=== PATIENT | female | born 1985 | race Caucasian/White ===

== ENCOUNTER 2020-06-06 07:03 | Day surgery (SDC) | payer BC, SELFPAY ==
--- NOTE | 2020-06-03 15:16 | HO.ANESPROP2 ---
Documented by User: Thelma Kaplan 06/03/20 15:17 HPI - Anesthesia Eval Consult details Narrative: 35yo F for EGD PMFSH Past Medical History Medical History Asthma Crohn disease Surgical History Surgical History History of laparotomy History of repair of ACL Social History Social History Smoking Status: Never smoker Second Hand Smoke Exposure: No Use of substances other than those prescribed or required for medical reasons: No Advance Directives: No Advance Directives Information Provided: Yes Recently lost weight without trying: No Meds Allergies Allergy/AdvReac Type Severity Reaction Status Date / Time iron Allergy Unknown Verified 06/03/20 15:04 Home Medications Medication Instructions Recorded Confirmed Type amlodipine 1 tab PO DAILY 06/03/20 06/03/20 History bupropion HCl 1 tab PO BID 06/03/20 06/03/20 History cyanocobalamin (vitamin B-12) 1 ml IM QMONTH 06/03/20 06/03/20 History enalapril maleate 1 tab PO BID 06/03/20 06/03/20 History norethin-e.estradiol triphasic 1 tab PO ONCE 06/03/20 06/03/20 History [Nortrel (28)] Exam Exam Date and Time: June 03, 2020 1516 Assessment and Plan Assessment Anesthesia Assessment: Chart Reviewed Documented by User: Jenny Miller 06/06/20 11:04 [facility] Past Medical History Medical History Asthma Crohn disease Surgical History Surgical History History of laparotomy History of repair of ACL Social History Social History Smoking Status: Never smoker Second Hand Smoke Exposure: No Use of substances other than those prescribed or required for medical reasons: No Advance Directives: No Advance Directives Information Provided: Yes Recently lost weight without trying: No Meds Allergies Allergy/AdvReac Type Severity Reaction Status Date / Time iron Allergy Unknown Verified 06/03/20 15:04 Home Medications Medication Instructions Recorded Confirmed Type amlodipine 1 tab PO DAILY 06/03/20 06/03/20 History bupropion HCl 1 tab PO BID 06/03/20 06/03/20 History cyanocobalamin (vitamin B-12) 1 ml IM QMONTH 06/03/20 06/03/20 History enalapril maleate 1 tab PO BID 06/03/20 06/03/20 History norethin-e.estradiol triphasic 1 tab PO ONCE 06/03/20 06/03/20 History [Nortrel (28)] Exam Airway Mallampati Class: II TM Dist: >3cm Neck ROM: Full
[2020-06-06 07:11] VITALS: BMI 29.2
[2020-06-06 07:41] LABS: UPreg QC Valid YES; Urine Pregnancy NEGATIVE (NEGATIVE)
[2020-06-06 07:44] VITALS: BP 129/80; PULSE 96; RESP 18; TEMP 36.6; O2SAT 98
[2020-06-06] MEDS: Lactated Ringers 1,000 ML 100 ML IVCONT (07:55)
[2020-06-06 08:32] VITALS: BP 123/88; PULSE 102; RESP 16; TEMP 36.6; O2SAT 97
--- NOTE | 2020-06-06 08:33 | HO.POSTANES ---
Post Anesthesia Evaluation Post Anesthesia Evaluation Vital Signs: Vital Signs Temp Pulse Resp BP Pulse Ox 06/06/20 07:44 98 F 96 18 129/80 98
[2020-06-06 08:48] VITALS: BP 125/83; PULSE 89; RESP 18; O2SAT 100
[2020-06-06 09:03] VITALS: BP 123/85; PULSE 84; RESP 18; O2SAT 100
--- NOTE | 2020-06-06 11:03 | HO.POSTANES ---
Post Anesthesia Evaluation Post Anesthesia Evaluation Vital Signs: Vital Signs Temp Pulse Resp BP Pulse Ox 06/06/20 09:03 84 18 123/85 100 06/06/20 08:48 89 18 125/83 100 06/06/20 08:32 97.9 F 102 H 16 123/88 97 06/06/20 07:44 98 F 96 18 129/80 98
--- NOTE | 2020-06-06 11:07 | OP_ITS ---
SURGEON: Neel Barnhart MD INDICATIONS: The patient presents for evaluation of odynophagia and reflux. Full consent has been obtained from her for this, including risks of bleeding and perforation. PREOPERATIVE DIAGNOSIS: POSTOPERATIVE DIAGNOSIS: PROCEDURE PERFORMED: Esophagogastroduodenoscopy with biopsies. ESTIMATED BLOOD LOSS: COMPLICATIONS: ANESTHESIA: Monitored anesthesia care. ASSISTANTS: SPECIMENS: PREOPERATIVE DIAGNOSES: Odynophagia and reflux. POSTOPERATIVE DIAGNOSES: Odynophagia and reflux, erosive esophagitis, small hiatal hernia. DESCRIPTION OF PROCEDURE: The patient was placed in the left lateral decubitus position. The Olympus video gastroscope was passed in the posterior oropharynx and upper esophagus under direct vision. The scope was passed slowly into the distal esophagus. The gastroesophageal junction appeared at 35 cm. Extending from this to 25 cm, were areas of less than 10 mm erosions and small ulcerations. There was no evidence of any yeast infection. There was no gross evidence of Crain's mucosa. The EG junction appeared normal. The scope was advanced into the stomach. There was a small hiatal hernia. The scope was advanced to pylorus and duodenum cannulated to the descending portion. The duodenum including the bulb appeared normal without mass or ulceration. Scope was withdrawn back in the stomach. The gastric antrum and body appeared normal with good peristalsis. Scope was retroflexed visualizing the proximal stomach carefully, which appeared normal, without any sign of mass or ulceration. The scope was straightened out and withdrawn back into the esophagus. Again, noted with the multiple small erosions and ulceration between 25 and 35 cm with friability. The majority of the esophageal mucosa did appear normal. Again, there was no gross evidence of candidiasis. Multiple biopsies were obtained between 25 and 35 cm from both normal-appearing mucosa and margins of the ulcers. The scope was withdrawn from the patient. She tolerated the procedure well and was returned to the recovery area in stable condition. IMPRESSION: 1. Erosive esophagitis with small esophageal ulcers. 2. Small hiatal hernia. PLAN: The results of the biopsy will be checked. At this point, I suspect this is related to reflux esophagitis as opposed to Crohn disease involving the esophagus or infectious esophagitis. She will start omeprazole 20 mg b.i.d. for 1 month and then daily thereafter. She will continue her Entyvio infusions. She will be seen in 2 to 3 months for a followup visit, but was instructed to call sooner if need be. This has all been discussed with her mother. She was also advised to avoid aspirin and NSAIDs long-term. MD NIC Khalil/CLAYTON / [phone]
--- NOTE | 2020-06-06 15:54 | PM.OP ---
Brief Operative Note Date of procedure: 06/06/20 Pre-op diagnosis: GERD, Odynophagia Post-op diagnosis: other (Erosive esophagitis, Hiatal hernia) Procedure: EGD with biopsies Surgeon: Neel Barnhart Anesthesia: MAC Estimated blood loss (mL): 5.0 Pathology: other (A. Esophagus 25-35 cm.) Condition: stable
== END 2020-06-06 09:15 | disposition home or self-care (01) ==
PROVIDERS: Nurse Practitioner; PCP Internal Medicine; Visit Provider Internal Medicine
PROC: 0DJ08ZZ Inspection of Upper Intestinal Tract, Via Natural or Artificial Opening Endoscopic (ICD-10-PCS; CPT 43235; principal; 2020-06-06 08:00)
DX: K21.9 Gastro-esophageal reflux disease without esophagitis (principal); R13.10 Dysphagia, unspecified; K22.10 Ulcer of esophagus without bleeding; K44.9 Diaphragmatic hernia without obstruction or gangrene
CPT/HCPCS: 43239; 81025; 88305; 88312

== ENCOUNTER 2020-06-09 07:31 | Outpatient (REF) | payer BC, SELFPAY | END 2020-06-09 07:32 | disposition home or self-care (01) | LOC: HO.MDS 07:31 | PROVIDERS: PCP Internal Medicine; Visit Provider Internal Medicine | DX: K50.90 Crohn's disease, unspecified, without complications (principal) | CPT/HCPCS: 96365; J3380 ==

== ENCOUNTER 2020-08-10 07:34 | Outpatient (REF) | payer BC, SELFPAY | END 2020-08-10 07:35 | disposition home or self-care (01) | LOC: HO.MDS 07:34 | PROVIDERS: PCP Internal Medicine; Visit Provider Internal Medicine | DX: K50.00 Crohn's disease of small intestine without complications (principal) | CPT/HCPCS: 96365; J3380 ==

== ENCOUNTER 2020-10-05 07:32 | Outpatient (REF) | payer OTHER, SELFPAY | END 2020-10-05 07:33 | disposition home or self-care (01) | LOC: HO.MDS 07:32 | PROVIDERS: PCP Internal Medicine; Visit Provider Internal Medicine | DX: K50.90 Crohn's disease, unspecified, without complications (principal) | CPT/HCPCS: 96365; J3380 ==

== ENCOUNTER 2020-12-01 07:32 | Outpatient (REF) | payer OTHER, SELFPAY | END 2020-12-01 07:33 | disposition home or self-care (01) | LOC: HO.MDS 07:32 | PROVIDERS: PCP Internal Medicine; Visit Provider Internal Medicine | DX: K50.90 Crohn's disease, unspecified, without complications (principal) | CPT/HCPCS: 96365; J3380 ==

== ENCOUNTER 2021-01-20 07:34 | Outpatient (REF) | payer OTHER, SELFPAY ==
[2021-01-20 08:23] LABS: MANUAL DIFF FLAG NO
[2021-01-20 08:31] LABS: Basophils Percent Auto 0.7 % (0-2); Eosinophils Absolute Auto 0.1 X10*3/uL (0.0-0.4); Eosinophils Percent Auto 1.5 % (0-4); Hematocrit 33.7 % (37-47); Hemoglobin 10.8 g/dl (12.0-16.0); Imm Gran Abs Auto 0.02 X10*3/uL (0.00-0.03); Imm Gran Pct Auto 0.3 % (0.0-0.4); Lymphocytes Absolute Auto 0.9 X10*3/uL (1.2-4.9); Lymphocytes Percent Auto 14.7 % (20-40); Mean Corpuscular Hemoglobin 28.1 pg (27.0-33.0); Mean Corpuscular Volume 87.5 fL (80-98); Monocytes Absolute Auto 0.7 X10*3/uL (0.1-1.2); Monocytes Percent Auto 10.8 % (2-11); Neutrophils Absolute Auto 4.4 X10*3/uL (2.0-8.3); Platelet Count 399 X10*3/uL (160-400); Red Blood Count 3.85 X10*6/uL (4.20-5.50); Red Cell Distribution Width 13.6 % (11.0-16.0)
[2021-01-20 08:49] LABS: C Reactive Protein 4.99 mg/dL (< or = 0.50); Iron 34 mcg/dL (30-160); Percent Iron Saturation 9 % (15-50); Total Iron Binding Capacity 385 mcg/dL (228-428); Unsaturated Iron Binding 351 ug/dL
[2021-01-20 09:05] LABS: Ferritin 20 ng/mL (10-122)
[2021-01-20 09:34] LABS: Erythrocyte Sedimentation Rate 28 MM/HR (0-20)
[2021-01-20 09:45] LABS: Folate 7.6 ng/mL (> or = 4.0); Vitamin B12 233 pg/mL (200-900)
[2021-01-21 19:31] LABS: Immunoglobulin A 231 mg/dL (47-310)
[2021-01-22 22:12] LABS: Transglutaminase Ab IgG 2 U/mL; Transglutaminase IgA 1 U/mL
[2021-01-23 18:42] LABS: Gliadin Deamidated IgA Ab 11 Units; Gliadin Deamidated IgG Ab 6 Units
[2021-01-24 06:17] LABS: Zinc 56 mcg/dL (60-130)
[2021-01-25 20:06] LABS: Endomysial IgA Antibody Negative (Negative)
[2021-01-26 08:28] LABS: Prometheus Anser VDZ SEE SEPARATE REPORT
== END 2021-01-20 07:35 | disposition home or self-care (01) ==
LOC: HO.LAB 07:34
PROVIDERS: PCP Internal Medicine; Visit Provider Internal Medicine
DX: K50.819 Crohn's disease of both small and large intestine with unspecified complications (principal); D64.9 Anemia, unspecified
CPT/HCPCS: 36415; 80280; 82542; 82607; 82728; 82746; 82784; 83516; 83540; 84630; 85025; 85652; 86140; 86255; 86256

== ENCOUNTER 2021-01-26 07:28 | Outpatient (REF) | payer OTHER, SELFPAY ==
[2021-01-28 18:57] LABS: TS Negative Control Passed; TS Panel A 0; TS Panel B 0; TS Positive Control Passed; TSpotTB Negative (SeeBelow)
== END 2021-01-26 07:29 | disposition home or self-care (01) ==
LOC: HO.MDS 07:28
PROVIDERS: PCP Internal Medicine; Visit Provider Internal Medicine
DX: K50.019 Crohn's disease of small intestine with unspecified complications (principal)
CPT/HCPCS: 36415; 86481; 96365; J3380

== ENCOUNTER → 2021-03-01 07:55 | Outpatient (BNV) | payer OTHER, SELFPAY | PROVIDERS: PCP Internal Medicine; Referring Provider Internal Medicine; Visit Provider Internal Medicine | DX: D50.8 Other iron deficiency anemias (principal); E53.9 Vitamin B deficiency, unspecified | CPT/HCPCS: 99203; 99213 ==

== ENCOUNTER 2021-03-07 13:55 | Outpatient (REF) | payer OTHER, SELFPAY | END 2021-03-07 13:56 | disposition home or self-care (01) | LOC: HO.MDS 13:55 | PROVIDERS: PCP Internal Medicine; Visit Provider Internal Medicine | DX: D50.9 Iron deficiency anemia, unspecified (principal) | CPT/HCPCS: 96365; 96367; J1756; Q0163 ==

== ENCOUNTER 2021-03-14 07:50 | Outpatient (REF) | payer OTHER, SELFPAY | END 2021-03-14 07:51 | disposition home or self-care (01) | LOC: HO.MDS 07:50 | PROVIDERS: PCP Internal Medicine; Visit Provider Internal Medicine | DX: D50.9 Iron deficiency anemia, unspecified (principal) | CPT/HCPCS: 96365; 96375; J1756; Q0163 ==

== ENCOUNTER 2021-03-21 11:52 | Outpatient (REF) | payer OTHER, SELFPAY | END 2021-03-21 11:53 | disposition home or self-care (01) | LOC: HO.MDS 11:52 | PROVIDERS: PCP Internal Medicine; Visit Provider Internal Medicine | DX: K50.90 Crohn's disease, unspecified, without complications (principal) | CPT/HCPCS: 96365; J3380 ==

== ENCOUNTER 2021-04-18 09:58 | Outpatient (REF) | payer OTHER, SELFPAY | END 2021-04-18 09:59 | disposition home or self-care (01) | LOC: HO.MDS 09:58 | PROVIDERS: PCP Internal Medicine; Visit Provider Internal Medicine | DX: K50.90 Crohn's disease, unspecified, without complications (principal) | CPT/HCPCS: 96365; J3380 ==

== ENCOUNTER 2021-05-19 07:29 | Outpatient (REF) | payer OTHER, SELFPAY | END 2021-05-19 07:30 | disposition home or self-care (01) | LOC: HO.MDS 07:29 | PROVIDERS: PCP Internal Medicine; Visit Provider Internal Medicine | DX: K50.90 Crohn's disease, unspecified, without complications (principal) | CPT/HCPCS: 96365; J3380 ==

== ENCOUNTER 2021-05-24 06:43 | Outpatient (REF) | payer OTHER, SELFPAY ==
[2021-05-24 06:48] LABS: MANUAL DIFF FLAG NO
[2021-05-24 07:28] LABS: Basophils Absolute Auto 0.1 X10*3/uL (0.0-0.2); Basophils Percent Auto 0.7 % (0-2); Eosinophils Absolute Auto 0.1 X10*3/uL (0.0-0.4); Eosinophils Percent Auto 1.2 % (0-4); Imm Gran Abs Auto 0.02 X10*3/uL (0.00-0.03); Imm Gran Pct Auto 0.3 % (0.0-0.4); Lymphocytes Absolute Auto 1.1 X10*3/uL (1.2-4.9); Lymphocytes Percent Auto 14.4 % (20-40); Mean Corpuscular HGB Conc 32.4 g/dl (31.0-35.0); Mean Corpuscular Hemoglobin 29.1 pg (27.0-33.0); Mean Corpuscular Volume 89.9 fL (80-98); Mean Platelet Volume 8.9 fL (9.4-12.3); Monocytes Absolute Auto 0.8 X10*3/uL (0.1-1.2); Monocytes Percent Auto 10.1 % (2-11); Neutrophils Absolute Auto 5.6 X10*3/uL (2.0-8.3); Neutrophils Percent Auto 73.3 % (45-73); Platelet Count 397 X10*3/uL (160-400); Red Blood Count 3.78 X10*6/uL (4.20-5.50); Red Cell Distribution Width 12.7 % (11.0-16.0); White Blood Count 7.6 X10*3/uL (4.8-10.8)
[2021-05-24 07:54] LABS: Alanine Aminotransferase 12 U/L (0-31); Albumin Level 3.2 g/dL (3.5-5.0); Alkaline Phosphatase 86 U/L (39-117); Aspartate Amino Transferase 10 U/L (5-31); Bilirubin Direct 0.2 mg/dL (0.0-0.5); Bilirubin Total 0.8 mg/dL (0.0-1.0); C Reactive Protein 2.17 mg/dL (< or = 0.50); Lipase 37 U/L (8-78); Total Protein 6.3 g/dL (6.5-8.0)
[2021-05-24 07:58] LABS: Amylase 71 U/L (28-100)
[2021-05-24 08:07] LABS: Erythrocyte Sedimentation Rate 19 MM/HR (0-20)
== END 2021-05-24 06:44 | disposition home or self-care (01) ==
LOC: HO.LAB 06:43
PROVIDERS: PCP Internal Medicine; Visit Provider Internal Medicine
DX: K50.012 Crohn's disease of small intestine with intestinal obstruction (principal)
CPT/HCPCS: 36415; 80076; 82150; 83690; 85025; 85652; 86140

== ENCOUNTER → 2021-06-01 08:20 | Outpatient (BNVA) | payer OTHER, SELFPAY | PROVIDERS: Visit Provider Advanced Practice Midwife ==

== ENCOUNTER 2021-06-16 07:28 | Outpatient (REF) | payer OTHER, SELFPAY | END 2021-06-16 07:29 | disposition home or self-care (01) | LOC: HO.MDS 07:28 | PROVIDERS: PCP Internal Medicine; Visit Provider Internal Medicine | DX: K50.90 Crohn's disease, unspecified, without complications (principal) | CPT/HCPCS: 96365; J3380 ==

== ENCOUNTER 2021-07-17 07:31 | Outpatient (REF) | payer OTHER, SELFPAY | END 2021-07-17 07:32 | disposition home or self-care (01) | LOC: HO.MDS 07:31 | PROVIDERS: PCP Internal Medicine; Visit Provider Internal Medicine | DX: K50.90 Crohn's disease, unspecified, without complications (principal) | CPT/HCPCS: 96365; J3380 ==

== ENCOUNTER 2021-08-14 14:10 | Outpatient (REF) | payer OTHER, SELFPAY ==
[2021-08-14 14:23] LABS: MANUAL DIFF FLAG NO
[2021-08-14 14:26] LABS: Basophils Absolute Auto 0.1 X10*3/uL (0.0-0.2); Basophils Percent Auto 0.9 % (0-2); Eosinophils Absolute Auto 0.2 X10*3/uL (0.0-0.4); Eosinophils Percent Auto 1.9 % (0-4); Hematocrit 36.1 % (37.0-47.0); Imm Gran Abs Auto 0.03 X10*3/uL (0.00-0.03); Imm Gran Pct Auto 0.4 % (0.0-0.4); Lymphocytes Absolute Auto 1.3 X10*3/uL (1.2-4.9); Lymphocytes Percent Auto 16.9 % (20-40); Mean Corpuscular HGB Conc 33.2 g/dl (31.0-35.0); Mean Corpuscular Hemoglobin 30.1 pg (27.0-33.0); Mean Corpuscular Volume 90.5 fL (80.0-98.0); Mean Platelet Volume 8.4 fL (9.4-12.3); Monocytes Absolute Auto 0.9 X10*3/uL (0.1-1.2); Monocytes Percent Auto 11.7 % (2-11); Neutrophils Absolute Auto 5.3 x10*3/uL (2.0-8.3); Neutrophils Percent Auto 68.2 % (45-73); Platelet Count 454 X10*3/uL (160-400); Red Blood Count 3.99 X10*6/uL (4.20-5.50); Red Cell Distribution Width 12.4 % (11.0-16.0); White Blood Count 7.8 X10*3/uL (4.8-10.8)
[2021-08-14 14:44] LABS: C Reactive Protein 3.67 mg/dL (< or = 0.50)
[2021-08-14 15:13] LABS: Erythrocyte Sedimentation Rate 21 MM/HR (0-20)
== END 2021-08-14 14:11 | disposition home or self-care (01) ==
LOC: HO.MDS 14:10
PROVIDERS: PCP Internal Medicine; Visit Provider Internal Medicine
DX: K50.00 Crohn's disease of small intestine without complications (principal)
CPT/HCPCS: 36415; 85025; 85652; 86140; 96365; J3380

== ENCOUNTER 2021-09-11 14:01 | Outpatient (REF) | payer OTHER, SELFPAY | END 2021-09-11 14:02 | disposition home or self-care (01) | LOC: HO.MDS 14:01 | PROVIDERS: PCP Internal Medicine; Visit Provider Internal Medicine | DX: K50.90 Crohn's disease, unspecified, without complications (principal) | CPT/HCPCS: 96365; J3380 ==

== ENCOUNTER 2021-10-11 13:18 | Outpatient (REF) | payer OTHER, SELFPAY | END 2021-10-11 13:19 | disposition home or self-care (01) | LOC: HO.MDS 13:18 | PROVIDERS: PCP Internal Medicine; Visit Provider Internal Medicine | DX: K50.90 Crohn's disease, unspecified, without complications (principal) | CPT/HCPCS: 96365; J3380 ==

== ENCOUNTER 2021-10-30 08:27 | Outpatient (REF) | payer OTHER, SELFPAY | END 2021-10-30 08:28 | disposition home or self-care (01) | LOC: HO.LAB 08:27 | PROVIDERS: Visit Provider Internal Medicine | DX: Z13.89 Encounter for screening for other disorder (principal) ==

== ENCOUNTER 2021-11-08 11:59 | Outpatient (REF) | payer OTHER, SELFPAY | END 2021-11-08 12:00 | disposition home or self-care (01) | LOC: HO.MDS 11:59 | PROVIDERS: PCP Internal Medicine; Visit Provider Internal Medicine | DX: K50.90 Crohn's disease, unspecified, without complications (principal); D50.9 Iron deficiency anemia, unspecified; Z90.49 Acquired absence of other specified parts of digestive tract | CPT/HCPCS: 96365; J3380 ==

== ENCOUNTER 2021-12-06 13:02 | Outpatient (REF) | payer OTHER, SELFPAY | END 2021-12-06 13:03 | disposition home or self-care (01) | LOC: HO.MDS 13:02 | PROVIDERS: PCP Internal Medicine; Visit Provider Internal Medicine | DX: K50.90 Crohn's disease, unspecified, without complications (principal); D50.9 Iron deficiency anemia, unspecified; Z90.49 Acquired absence of other specified parts of digestive tract | CPT/HCPCS: 96365; J3380 ==

== ENCOUNTER 2022-01-03 13:05 | Outpatient (REF) | payer OTHER, SELFPAY | END 2022-01-03 13:06 | disposition home or self-care (01) | LOC: HO.MDS 13:05 | PROVIDERS: PCP Internal Medicine; Visit Provider Internal Medicine | DX: K50.90 Crohn's disease, unspecified, without complications (principal); D50.9 Iron deficiency anemia, unspecified | CPT/HCPCS: 36415; 80280; 82542; 96365; J3380 ==

== ENCOUNTER 2022-01-29 11:38 | Emergency (ER) | payer OTHER, SELFPAY ==
[2022-01-29 11:42] VITALS: BP 148/99; PULSE 108; RESP 18; TEMP 36.2; O2SAT 97; BMI 27.5
--- NOTE | 2022-01-29 14:04 | ED_ITS ---
HPI - Skin/Abscess/Foreign Bdy General Chief complaint: General Medical Stated complaint: cyst between legs Time Seen by Provider: 01/29/22 13:18 Source: patient Mode of arrival: ambulatory Limitations: no limitations History of Present Illness complaint: abscess/boil Onset (ago): month(s) (1) Location: genitals (right labial ) Severity: severe Severity scale (1-10): >10 Quality: aching and constant Pain Consistency: constant Relieving factors: none Exacerbating factors: palpation and movement Context: none Associated symptoms: denies other symptoms Treatments prior to arrival: attempted to drain pus at home and other ( went to an urgent care and they reported that she had to go to her audio visual design engineer to have this incision and drain and they placed her on Keflex for 7 days which she started yesterday and is taking as prescribed) Related Data Home Medications Medication Instructions Recorded Confirmed bupropion HCl 150 mg tablet,12 hr 1 tab PO BID 06/03/20 06/01/21 sustained-release cyanocobalamin (vitamin B-12) 1 ml IM QMONTH 06/03/20 06/01/21 1,000 mcg/mL injection solution enalapril maleate 10 mg tablet 1 tab PO BID 06/03/20 06/01/21 omeprazole 20 mg tablet,delayed 20 mg PO BID 03/01/21 06/01/21 release vedolizumab 300 mg intravenous 300 mg IV Q4W 03/01/21 06/01/21 solution (Entyvio) budesonide 3 mg 3 cap PO DAILY 10/30/21 10/30/21 capsule,delayed,extended release Previous Rx's Medication Instructions Recorded norethindrone-e.estradiol 1 tab PO ONCE #84 tabs 06/01/21 triphasic 0.5 mg/0.75 mg/1 mg-35 mcg tablet (Nortrel (28)) cyanocobalamin (vitamin B-12) 1,000 mcg subcut 2XW #6 ea 07/06/21 1,000 mcg/mL injection kit doxycycline monohydrate 100 mg 100 mg PO BID 10 days #20 tabs 01/29/22 tablet ibuprofen 800 mg tablet 800 mg PO Q8H PRN pain #14 tabs 01/29/22 oxycodone 5 mg tablet 5 mg PO Q6H PRN pain #14 tabs 01/29/22 Allergies Allergy/AdvReac Type Severity Reaction Status Date / Time dextran sulfate Allergy Severe Anaphylaxis Verified 01/29/22 11:41 iron Allergy Severe Vomiting Verified 01/29/22 11:41 zinc Allergy Severe Nausea and Verified 01/29/22 11:41 Vomiting Review of Systems Review of Systems: Constitutional : Denies history of same, Denies any other sites involved, Denies IV drug use, Denies history of MRSA, Denies swollen glands, Denies injury, Denies Fever, Denies Chills, + Sig Pain, Denies Systemic symptoms Cardiovascular : No Chest Pain, No SOB Respiratory : No Dyspnea Gastrointestinal : No abdominal pain Musculoskeletal : No Joint Swelling Skin : + abscess with surrounding erythema with right labial, No skin laceration, No Foreign bodies, No spreading rash, Denies bites, Denies discharge, Neuro : No Weakness, No Numbness/tingling Psych : No SI/HI/thoughts of self injury Yes all other systems are reviewed and are negative [facility] Past Medical History Attestation statement: The following information was validated with the patient. Source: old records reviewed and nursing notes reviewed Medical History Asthma Crohn disease Iron deficiency anemia Surgical History History of bowel resection History of repair of ACL Hx of cholecystectomy Family History Family History Father Stroke Heart disease Diabetes HTN (hypertension) Social History Social History Alcohol intake: current Alcohol intake frequency: a few times a week Patient Tobacco Use Status: Never used Tobacco Second Hand Smoke Exposure: No Advance Directives: No Advance Directives Information Provided: No Gender identity: Female Physical Exam Vital Signs: Vital Signs: Last Vital Signs Temp 97.1 F 01/29/22 11:42 Pulse 108 H 01/29/22 11:42 Resp 16 01/29/22 14:14 BP 148/99 H 01/29/22 11:42 Pulse Ox 97 01/29/22 11:42 O2 Del Method 01/29/22 11:42 BMI result Body Mass Index 27.5 vital signs have been reviewed as normal and appeared to be correct. Blood pressure 148/99 Heart rate 108. Respiration rate normal. Temperature normal. Oxygen saturation normal. Appearance: Alert. Oriented X3. No acute distress. Head: Normal external exam. Normocephalic. Atraumatic. Eyes: PERRLA. EOMI. Conjunctiva and sclera normal. Eyelids normal. ENT: Pharynx normal. Uvula midline. Moist mucous membranes. Neck: Normal inspection. Neck supple. FROM. CVS: Normal heart rate and rhythm. Respiratory: No respiratory distress. Painless inspiration. Skin: Skin warm and dry. Normal skin color. Normal skin turgor. to right tj patient has an abscess with moderate surrounding erythema and soft tissue swelling and tenderness palpation. No drainage noted at this time. No additional rashes/lesions/lacerations noted. Extremities: Extremities exhibit normal range of motion. Extremities nontender. Neuro: Oriented X 3. No motor deficit. No sensory deficit. Reflexes normal. Normal steady gait. No focal neuro deficits noted. Vascular: + radial pulses/+ 2 distal pedal pulses/+2 dorsalis pedis b/l. Normal cap refill. No cyanosis noted to upper extremity nails and lower extremity toes nails. Course Course Course Narrative: patient now status post I&D of abscess of right labia. Patient tolerated procedure well. No complications. I did give her morphine by IM and Zofran. Will DC home with oxycodone. Along with instructions follow-up with PCP/ OBGYN and to return if any new or worsening symptoms. I explained her that she can not continue taking the Keflex and I will add doxycycline to her antibiotic regimen. Patient understands agrees with this plan. MDM - Skin/Abscess/Foreign Bdy Medical Records Attestation: I reviewed the patient's medical records. Procedures Abscess I/D Site: other (right labia) Side (if applicable): right Local Anesthetic: lidocaine 1% Amount of anesthesia used (mL): 6 Technique: needle aspiration and incised with blade Amount of fluid expressed (mL): 15 Sent for culture/gram staining?: No Irrigation: Yes Packing used?: none Complications: other ( No complications patient tolerated procedure well) Critical Care Time Critical Care Time Critical Care Time: Yes Total Critical Care Time: 60 Attestation: I personally attest to this time spent taking care of the patient Discharge Plan Discharge Clinical Impression: Abscess of genital labia Patient Disposition: Home, Self-Care Instructions: Abscess Incision and Drainage (DC) Prescriptions: New doxycycline monohydrate 100 mg tablet 100 mg PO BID 10 Days Qty: 20 0RF ibuprofen 800 mg tablet 800 mg PO Q8H PRN (Reason: pain) Qty: 14 0RF oxycodone 5 mg tablet 5 mg PO Q6H PRN (Reason: pain) Qty: 14 0RF Rx Instructions: Partial Fill upon patient request. No Action cyanocobalamin (vitamin B-12) 1,000 mcg/mL Kit 1,000 mcg SUBCUT 2XW Qty: 6 0RF omeprazole 20 mg Tablet,Delayed Release (Dr/Ec) 20 mg PO BID Entyvio 300 mg Recon Soln 300 mg IV Q4W budesonide 3 mg capsule,delayed,extend.release 3 cap PO DAILY bupropion HCl 150 mg tablet sustained-release 12 hr 1 tab PO BID enalapril maleate 10 mg tablet 1 tab PO BID cyanocobalamin (vitamin B-12) 1,000 mcg/mL solution 1 ml IM QMONTH Nortrel 7/7/7 (28) 0.5/0.75/1 mg- 35 mcg tablet 1 tab PO ONCE Qty: 84 4RF Referrals: Arlyn Leyva MD [Primary Care Provider] - 2 days Pramod Greene MD [Physician] - 2 days Stand Alone Forms: Work/School Release Print Language: Martiniquais
[2022-01-29] MEDS: Ondansetron ODT 4 MG TAB.RAPDIS TRANSLINGU (14:11)
[2022-01-29] MEDS: Lidocaine HCl 1 % MPF 5 ML VIAL SUBCUT ×2 (14:13)
[2022-01-29 14:14] VITALS: RESP 16
[2022-01-29] MEDS: Morphine Sulfate 4 MG/ML CARTRIDGE IM (14:14)
[2022-01-29] MEDS: oxyCODONE HCl Immed Release 5 MG TABLET PO (14:49)
== END 2022-01-29 14:53 | disposition home or self-care (01) ==
PROVIDERS: Emergency Provider Emergency Medicine; PCP Internal Medicine
DX: N76.4 Abscess of vulva (principal); J45.909 Unspecified asthma, uncomplicated
CPT/HCPCS: 56405; 96372; 99283; 99284; J2270

== ENCOUNTER 2022-01-31 13:52 | Outpatient (REF) | payer OTHER, SELFPAY | END 2022-01-31 13:53 | disposition home or self-care (01) | LOC: HO.MDS 13:52 | PROVIDERS: PCP Internal Medicine; Visit Provider Internal Medicine | DX: K50.90 Crohn's disease, unspecified, without complications (principal) | CPT/HCPCS: 96365; J3380 ==

== ENCOUNTER 2022-02-13 15:51 | Outpatient (REF) | payer OTHER, SELFPAY ==
[2022-02-13 16:06] LABS: MANUAL DIFF FLAG NO
[2022-02-13 16:26] LABS: Basophils Percent Auto 0.4 % (0-2); Eosinophils Percent Auto 0.3 % (0-4); Hemoglobin 11.4 g/dl (12.0-16.0); Imm Gran Abs Auto 0.05 X10*3/uL (0.00-0.03); Imm Gran Pct Auto 0.5 % (0.0-0.4); Lymphocytes Absolute Auto 0.6 X10*3/uL (1.2-4.9); Lymphocytes Percent Auto 5.9 % (20-40); Mean Corpuscular HGB Conc 32.6 g/dl (31.0-35.0); Mean Corpuscular Hemoglobin 28.9 pg (27.0-33.0); Mean Corpuscular Volume 88.8 fL (80.0-98.0); Mean Platelet Volume 8.9 fL (9.4-12.3); Monocytes Absolute Auto 0.6 X10*3/uL (0.1-1.2); Monocytes Percent Auto 5.7 % (2-11); Neutrophils Absolute Auto 8.8 x10*3/uL (2.0-8.3); Neutrophils Percent Auto 87.2 % (45-73); Platelet Count 462 X10*3/uL (160-400); Red Blood Count 3.94 X10*6/uL (4.20-5.50); Red Cell Distribution Width 13.1 % (11.0-16.0); White Blood Count 10.1 X10*3/uL (4.8-10.8)
[2022-02-13 16:59] LABS: Alanine Aminotransferase 11 U/L (0-31); Albumin Level 3.6 g/dL (3.5-5.0); Alkaline Phosphatase 67 U/L (39-117); Amylase 100 U/L (28-100); Aspartate Amino Transferase 10 U/L (5-31); Bilirubin Direct < 0.2 mg/dL (0.0-0.5); Bilirubin Total 0.2 mg/dL (0.0-1.0); C Reactive Protein 3.12 mg/dL (< or = 0.50); Lipase 54 U/L (8-78); Total Protein 6.6 g/dL (6.5-8.0)
[2022-02-13 17:05] LABS: Erythrocyte Sedimentation Rate 15 MM/HR (0-20)
[2022-02-14 08:19] LABS: HBc Num1 0.11 S/CO (0.00-0.79); Hepatitis B Core Antibody Nonreactive (Nonreactive); Hepatitis B Surface Antigen Negative (Negative); ~Hepatitis B Surface Antibody REACTIVE (Nonreactive)
[2022-02-15 23:38] LABS: TS Negative Control Passed; TS Panel A 0; TS Panel B 0; TS Positive Control Passed; TSpotTB Negative (Negative)
== END 2022-02-13 15:52 | disposition home or self-care (01) ==
LOC: HO.LAB 15:51
PROVIDERS: PCP Internal Medicine; Visit Provider Internal Medicine
DX: Z11.1 Encounter for screening for respiratory tuberculosis (principal); K50.819 Crohn's disease of both small and large intestine with unspecified complications
CPT/HCPCS: 36415; 80076; 82150; 83690; 85025; 85652; 86140; 86481; 86704; 86706; 87340

== ENCOUNTER 2022-05-01 13:44 | Outpatient (REF) | payer OTHER, SELFPAY ==
[2022-05-01 14:47] LABS: Basophils Percent Auto 0.5 % (0-2); Eosinophils Percent Auto 0.1 % (0-4); Neutrophils Absolute Auto 7.6 x10*3/uL (2.0-8.3); PLT CLUMP 1; SCAN SMEAR FLAG 1
[2022-05-01 14:50] LABS: Hematocrit 35.8 % (37.0-47.0); Hemoglobin 11.4 g/dl (12.0-16.0); Imm Gran Abs Auto 0.05 X10*3/uL (0.00-0.03); Imm Gran Pct Auto 0.6 % (0.0-0.4); Lymphocytes Absolute Auto 0.5 X10*3/uL (1.2-4.9); Lymphocytes Percent Auto 6.2 % (20-40); MANUAL DIFF FLAG SCAN; Mean Corpuscular HGB Conc 31.8 g/dl (31.0-35.0); Mean Corpuscular Hemoglobin 29.6 pg (27.0-33.0); Mean Platelet Volume 10.3 fL (9.4-12.3); Monocytes Absolute Auto 0.4 X10*3/uL (0.1-1.2); Monocytes Percent Auto 5.1 % (2-11); Neutrophils Percent Auto 87.5 % (45-73); Red Blood Count 3.85 X10*6/uL (4.20-5.50)
[2022-05-01 15:15] LABS: C Reactive Protein 3.87 mg/dL (< or = 0.50); Iron 36 mcg/dL (30-160); Percent Iron Saturation 10 % (15-50); Total Iron Binding Capacity 369 mcg/dL (228-428); Unsaturated Iron Binding 333 ug/dL
[2022-05-01 15:24] LABS: Ferritin 27 ng/mL (10-122)
[2022-05-01 15:44] LABS: Platelet Count 467 X10*3/uL (160-400); White Blood Count 8.7 X10*3/uL (4.8-10.8)
[2022-05-01 15:45] LABS: SLIDE REVIEW VERIFIED
[2022-05-01 15:51] LABS: Folate 5.1 ng/mL (> or = 4.0); Vitamin B12 314 pg/mL (200-900)
[2022-05-01 16:57] LABS: Erythrocyte Sedimentation Rate 23 MM/HR (0-20)
== END 2022-05-01 13:45 | disposition home or self-care (01) ==
LOC: HO.LAB 13:44
PROVIDERS: Absent Provider Internal Medicine Medical Oncology; PCP Internal Medicine; Visit Provider Internal Medicine
DX: K50.819 Crohn's disease of both small and large intestine with unspecified complications (principal)
CPT/HCPCS: 36415; 82607; 82728; 82746; 83540; 85025; 85652; 86140

== ENCOUNTER 2022-05-07 13:42 | Outpatient (REF) | payer OTHER, SELFPAY | END 2022-05-07 13:43 | disposition home or self-care (01) | LOC: HO.LNP 13:42 | PROVIDERS: PCP Internal Medicine; Visit Provider Obstetrics & Gynecology | DX: N75.0 Cyst of Bartholin's gland (principal) | CPT/HCPCS: 10160; 56420; 87071; 87205 ==

== ENCOUNTER 2022-05-17 14:12 | Outpatient (REF) | payer OTHER, SELFPAY | END 2022-05-17 14:13 | disposition home or self-care (01) | LOC: HO.MDS 14:12 | PROVIDERS: Visit Provider Internal Medicine | DX: D50.9 Iron deficiency anemia, unspecified (principal) | CPT/HCPCS: 96365; J1756 ==

== ENCOUNTER 2022-05-23 07:11 | Day surgery (SDC) | payer OTHER, SELFPAY ==
--- NOTE | 2022-05-22 10:18 | HO.ANESPROP2 ---
Documented by User: Thelma Kaplan NP 05/22/22 10:20 HPI - Anesthesia Eval Consult details Narrative: 37yo F for Colonoscopy Prednisone 10mg daily s/p EGD 2019 with TIVA PMFSH Active Problems Active Problems: All Active Problems (Updated 05/07/22 @ 14:28 by Pramod Greene MD) Bartholin cyst (Acute) Crohn disease (Acute) Surveillance for control, oral contraceptives (Acute) Well woman exam with routine gynecological exam (Acute) Anemia (Chronic) Past Medical History Medical History (Updated 05/23/22 @ 08:24 by Charleen Hollingsworth MD) Asthma Crohn disease Iron deficiency anemia Family History Family History Father Stroke Heart disease Diabetes HTN (hypertension) Surgical History Surgical History (Updated 05/23/22 @ 08:31 by Charleen Hollingsworth MD) History of bowel resection History of esophagogastroduodenoscopy (EGD) History of repair of ACL Hx of cholecystectomy Social History Social History Household Members: None Housing: Condominium Alcohol intake: current Alcohol intake frequency: holidays/special occasions only Patient Tobacco Use Status: Never used Tobacco Second Hand Smoke Exposure: No Advance Directives: No Advance Directives Information Provided: Yes FDLMP: 2 weeks ago : No Poor oral hygiene: No service: No Current occupational status: employed Gender identity: Female Meds Allergies Allergy/AdvReac Type Severity Reaction Status Date / Time dextran sulfate Allergy Severe Anaphylaxis Verified 05/07/22 13:53 iron Allergy Severe Vomiting Verified 05/07/22 13:53 zinc Allergy Severe Nausea and Verified 05/07/22 13:53 Vomiting Home Medications Medication Instructions Recorded Confirmed Last Taken Type bupropion HCl 150 mg tablet,12 hr 1 tab PO BID 06/03/20 05/02/22 05/22/22 History sustained-release enalapril maleate 10 mg tablet 1 tab PO BID 06/03/20 05/02/22 05/23/22 History omeprazole 20 mg tablet,delayed 20 mg PO BID 03/01/21 05/02/22 05/23/22 History release vedolizumab 300 mg intravenous 300 mg IV Q4W 03/01/21 05/02/22 05/15/22 History solution (Entyvio) prednisone 10 mg tablet 10 mg PO DAILY 02/27/22 05/02/22 05/22/22 History budesonide 3 mg 3 cap PO DAILY 05/02/22 05/02/22 05/22/22 History capsule,delayed,extended release albuterol sulfate 90 mcg/actuation inhalation 05/23/22 04/04/22 History aerosol inhaler Exam Exam Date and Time: May 22, 2022 1018 Pertinent Lab Results Pertinent Lab Results: Laboratory Tests 10/30/21 05/01/22 08:37 14:06 WBC 8.7 Hgb 11.4 L Hct 35.8 L Plt Count 467 H Sodium 137 Potassium 5.1 Chloride 105 Carbon Dioxide 25 BUN 11 Creatinine 0.81 Assessment and Plan Assessment Anesthesia Assessment: Chart Reviewed Documented by User: Charleen Hollingsworth MD 05/23/22 08:36 PMFSH Active Problems Active Problems: All Active Problems (Updated 05/07/22 @ 14:28 by Pramod Greene MD) Bartholin cyst (Acute) Crohn disease (Acute) Surveillance for control, oral contraceptives (Acute) Well woman exam with routine gynecological exam (Acute) Anemia (Chronic) HTN GERD Anxiety/Depression Past Medical History Medical History (Updated 05/23/22 @ 08:24 by Charleen Hollingsworth MD) Asthma Crohn disease Iron deficiency anemia Family History Family History Father Stroke Heart disease Diabetes HTN (hypertension) Family history of problems with anesthesia: No Surgical History Surgical History (Updated 05/23/22 @ 08:31 by Charleen Hollingsworth MD) History of bowel resection History of esophagogastroduodenoscopy (EGD) History of repair of ACL Hx of cholecystectomy History of Problems with Anesthesia: No Social History Social History Household Members: None Housing: Condominium Alcohol intake: current Alcohol intake frequency: holidays/special occasions only Patient Tobacco Use Status: Never used Tobacco Second Hand Smoke Exposure: No Advance Directives: No Advance Directives Information Provided: Yes FDLMP: 2 weeks ago : No Poor oral hygiene: No service: No Current occupational status: employed Gender identity: Female Meds Allergies Allergy/AdvReac Type Severity Reaction Status Date / Time dextran sulfate Allergy Severe Anaphylaxis Verified 05/07/22 13:53 iron Allergy Severe Vomiting Verified 05/07/22 13:53 zinc Allergy Severe Nausea and Verified 05/07/22 13:53 Vomiting Home Medications Medication Instructions Recorded Confirmed Last Taken Type bupropion HCl 150 mg tablet,12 hr 1 tab PO BID 06/03/20 05/02/22 05/22/22 History sustained-release enalapril maleate 10 mg tablet 1 tab PO BID 06/03/20 05/02/22 05/23/22 History omeprazole 20 mg tablet,delayed 20 mg PO BID 03/01/21 05/02/22 05/23/22 History release vedolizumab 300 mg intravenous 300 mg IV Q4W 03/01/21 05/02/22 05/15/22 History solution (Entyvio) prednisone 10 mg tablet 10 mg PO DAILY 02/27/22 05/02/22 05/22/22 History budesonide 3 mg 3 cap PO DAILY 05/02/22 05/02/22 05/22/22 History capsule,delayed,extended release albuterol sulfate 90 mcg/actuation inhalation 05/23/22 04/04/22 History aerosol inhaler Exam Height,Weight and Vital Signs: Height 5 ft 3 in Weight 64.864 kg Vital Signs Temp Pulse Resp BP Pulse Ox O2 Del Method 05/23/22 07:45 97.5 F 102 H 18 148/87 H 97 Room Air Pertinent Lab Results Pertinent Lab Results: Laboratory Tests 10/30/21 05/01/22 08:37 14:06 WBC 8.7 Hgb 11.4 L Hct 35.8 L Plt Count 467 H Sodium 137 Potassium 5.1 Chloride 105 Carbon Dioxide 25 BUN 11 Creatinine 0.81 Lab Results 05/23/22 Range/Units 07:46 Urine Test NEGATIVE (NEGATIVE) Airway Mallampati Class: II TM Dist: >3cm Neck ROM: Full Loose/Missing/Broken Teeth: No (@ crowns intact, metal bar bottom teeth glued in place. No loose or broken teeth) Heart: RRR Lungs: CTAB Assessment and Plan Assessment Anesthesia Assessment: Anesthesia Plan Discussed Final Anesthetic Review Family History of Problems with Anesthesia: No History of Problems with Anesthesia: No NPO: Yes ASA Class: II Final Preanesthetic Review: No Changes in Pt Med Stat, Meds/Allgs Chart Reviewed, Consent Obtained/Reviewed and Anes Risks/Benef Reviewed Patient Risk: Low Procedure Risk: Low Assessment/Block/Sedation in SS: Assess/Block/Sedation-SS Anesthetic Plan Anesthetic Plan: MAC: Disposition: Standard PACU
[2022-05-23 06:12] VITALS: BMI 25.3
[2022-05-23 07:45] VITALS: BP 148/87; PULSE 102; RESP 18; TEMP 36.4; O2SAT 97
[2022-05-23 07:55] LABS: UPreg QC Valid YES; Urine Pregnancy NEGATIVE (NEGATIVE)
[2022-05-23] MEDS: Lactated Ringers 1,000 ML 100 ML IVCONT (08:01)
[2022-05-23 09:52] VITALS: BP 118/86; PULSE 106; RESP 16; TEMP 37.4; O2SAT 99
--- NOTE | 2022-05-23 09:59 | PM.OP ---
Brief Operative Note Date of Service: 05/23/22 Pre-op diagnosis: Crohn's disease Post-op diagnosis: other (Distal proctitis, normal colon and TI otherwise) Procedure: Colonoscopy to the cecum and TI Surgeon: Neel Barnhart Anesthesia: MAC Was an Marble Supervisor used for this Procedure?: No Estimated blood loss (mL): 0 Pathology: none sent Condition: stable Disposition: PACU
[2022-05-23 10:05] VITALS: BP 129/83; PULSE 94; RESP 18; TEMP 36.7; O2SAT 100
--- NOTE | 2022-05-23 21:43 | OP_ITS ---
SURGEON: Neel Barnhart MD INDICATIONS: The patient presents for followup of Crohn's disease. Full consent has been obtained from her for this, including risks of bleeding and perforation. PREOPERATIVE DIAGNOSIS: Crohn's disease. POSTOPERATIVE DIAGNOSIS: Crohn's disease. Normal terminal ileum and colon other than evidence of very distal proctitis right at the anorectal junction. PROCEDURE PERFORMED: Colonoscopy to the cecum and terminal ileum. ESTIMATED BLOOD LOSS: COMPLICATIONS: ANESTHESIA: Medication used; monitored anesthesia care. ASSISTANTS: SPECIMENS: DESCRIPTION OF PROCEDURE: The patient was placed in left lateral decubitus position. The digital rectal exam revealed a somewhat tight anal sphincter. There was no obvious perianal disease nor drainage. The Olympus video-pediatric colonoscope was entered into the rectum and advanced easily to the cecum. Once in the cecum, I did identify normal-appearing cecal pouch with appendiceal orifice and a normal-appearing ileocecal valve. The terminal ileum was cannulated and appeared normal for at least 5 or 10 cm. I did not visualize any sign of ileitis. The scope was withdrawn back in the colon. The cecum and ileocecal valve appeared normal. The scope was then slowly withdrawn assessing all mucosal surfaces carefully. Preparation was excellent. I did not visualize any sign of polyps, colitis, nor angiodysplasia. In the rectum, the scope was retroflexed visualizing the distal rectum carefully. In the very distal rectum there was an area of some friability and some overlying exudate consistent with some proctitis. There was no mass. Biopsies were not obtained. The rectum proximal to this appeared normal. The scope was straightened and withdrawn from the patient. I did inspect the perianal area again and there did not appear to be any fistulae, abscess, nor drainage. She tolerated the procedure well and was returned to recovery area in stable condition. IMPRESSION: Very distal evidence of proctitis with some exudate and inflammation at the anorectal junction. Otherwise normal colonoscopy, including the terminal ileum. PLAN: The patient will continue her current regimen including Entyvio infusions every 4 weeks, budesonide 9 mg daily, prednisone 5 mg daily, and Pentasa 1 g q.i.d. She will remain on omeprazole for her history of reflux and esophagitis. She will continue B12 shots. She recently started some iron infusions with Dr. Urbina. I am going to give her a prescription to use a 1000mg mesalamine suppository nightly for 4 weeks and then as needed after that to treat the finding on today's colonoscopy in the distal rectum. She will be seen in followup in the office. This has been discussed with her mother. MD NIC Khalil/CL[place] / [id number] MTDD
== END 2022-05-23 10:29 | disposition home or self-care (01) ==
PROVIDERS: Nurse Practitioner; PCP Internal Medicine; Visit Provider Internal Medicine
PROC: 0DJD8ZZ Inspection of Lower Intestinal Tract, Via Natural or Artificial Opening Endoscopic (ICD-10-PCS; CPT 45378; principal; 2022-05-23 08:40)
DX: K50.819 Crohn's disease of both small and large intestine with unspecified complications (principal); K62.89 Other specified diseases of anus and rectum; Z90.49 Acquired absence of other specified parts of digestive tract; D50.9 Iron deficiency anemia, unspecified; J45.909 Unspecified asthma, uncomplicated; Z79.52 Long term (current) use of systemic steroids; Z79.899 Other long term (current) drug therapy; Z88.8 Allergy status to other drugs, medicaments and biological substances
CPT/HCPCS: 45378; 81025

== ENCOUNTER 2022-05-30 14:27 | Outpatient (REF) | payer OTHER, SELFPAY | END 2022-05-30 14:28 | disposition home or self-care (01) | LOC: HO.MDS 14:27 | PROVIDERS: Visit Provider Internal Medicine | DX: D50.9 Iron deficiency anemia, unspecified (principal) | CPT/HCPCS: 96365; J1756 ==

== ENCOUNTER 2022-06-06 14:28 | Outpatient (REF) | payer OTHER, SELFPAY | END 2022-06-06 14:29 | disposition home or self-care (01) | LOC: HO.MDS 14:28 | PROVIDERS: Visit Provider Internal Medicine | DX: D50.9 Iron deficiency anemia, unspecified (principal) | CPT/HCPCS: 96365; J1756 ==

== ENCOUNTER 2022-06-08 08:15 | Outpatient (REF) | payer OTHER, SELFPAY ==
--- NOTE | ~2022-06-08 | CT_ITS ---
EXAMINATION: CT PELVIS WITH CONTRAST CLINICAL INFORMATION: Other specified noninflammatory disorder of perineum COMPARISON: Previous CT scans most recent July 2016 TECHNIQUE: Helical scanning was performed with submillimeter collimation through the pelvis with the use of oral contrast and during bolus intravenous injection of 100 mL of Omnipaque 350 intravenous contrast. Sagittal and coronal multiplanar 2-D reconstructions were obtained. This CT examination was performed using dose optimization techniques as appropriate, variously including the following: *Automated exposure control *Adjustment of mA and/or kV according to patient size (this includes techniques or standardized protocols for targeted exams where dose is matched to indication/reason for exam; i.e. extremities or head) *Use of iterative reconstruction technique DLP: 392 mGy-cm FINDINGS: There is asymmetric increased soft tissue seen in the right side of the perineum. The uterus is unremarkable. The ovaries are not well seen but appear unremarkable. The bladder is normal. No ascites, adenopathy or peritoneal disease is seen. There is wall thickening and increased wall enhancement of small bowel in the left lower quadrant. Previous CT reports indicate history of Crohn's disease. There is a large amount of stool suggestive of constipation. There are surgical clips adjacent to the cecum. No hernia. Normal vascular structures. There is cortical thickening of the medial left femoral neck. This is similar to multiple old exams. Bony structures are otherwise unremarkable. CT/CT pelvis w IV con IMPRESSION: Asymmetric increased soft tissue in the right perineum. Abnormal loops of small bowel in the left lower quadrant with bowel wall thickening and enhancement. Findings are suggestive of patient's known Crohn's disease. Large amount stool in the colon suggestive of constipation.
[2022-06-08] MEDS: iohexoL 350 MG/ML 100 ML INFUS..BTL IV (09:19)
== END 2022-06-08 08:16 | disposition home or self-care (01) ==
LOC: HO.CT 08:15
PROVIDERS: PCP Internal Medicine; Visit Provider Obstetrics & Gynecology
DX: N90.89 Other specified noninflammatory disorders of vulva and perineum (principal)
CPT/HCPCS: 72193; Q9967

== ENCOUNTER 2022-06-20 11:16 | Outpatient (REF) | payer OTHER, SELFPAY | END 2022-06-20 11:17 | disposition home or self-care (01) | LOC: HO.LNP 11:16 | PROVIDERS: PCP Internal Medicine; Visit Provider Obstetrics & Gynecology | DX: N76.4 Abscess of vulva (principal) | CPT/HCPCS: 10060; 87070; 87205 ==

== ENCOUNTER 2022-07-10 09:55 | Outpatient (REF) | payer OTHER, SELFPAY ==
[2022-07-10 15:15] LABS: CT PCR NOT DETECTED (Not Detect.); NG PCR NOT DETECTED (Not Detect.)
[2022-07-11 12:15] LABS: BV Int Neg Control Negative (Negative); BV Int Pos Control Positive (Positive)
[2022-07-18 04:57] LABS: HPV mRNA E6/E7 rflx Not Detected (Not Detected)
== END 2022-07-10 09:56 | disposition home or self-care (01) ==
LOC: HO.LNP 09:55
PROVIDERS: Visit Provider Advanced Practice Midwife
DX: Z01.419 Encounter for gynecological examination (general) (routine) without abnormal findings (principal); Z11.51 Encounter for screening for human papillomavirus (HPV)
CPT/HCPCS: 87480; 87491; 87510; 87591; 87624; 87660; 88142

== ENCOUNTER 2022-09-04 15:02 | Outpatient (REF) | payer OTHER, SELFPAY ==
[2022-09-04 15:22] LABS: MANUAL DIFF FLAG NO
[2022-09-04 15:59] LABS: Basophils Absolute Auto 0.1 X10*3/uL (0.0-0.2); Basophils Percent Auto 0.5 % (0-2); Eosinophils Percent Auto 0.3 % (0-4); Hematocrit 37.2 % (37.0-47.0); Hemoglobin 11.8 g/dl (12.0-16.0); Imm Gran Abs Auto 0.04 X10*3/uL (0.00-0.03); Imm Gran Pct Auto 0.4 % (0.0-0.4); Lymphocytes Absolute Auto 0.7 X10*3/uL (1.2-4.9); Lymphocytes Percent Auto 7.3 % (20-40); Mean Corpuscular HGB Conc 31.7 g/dl (31.0-35.0); Mean Corpuscular Hemoglobin 30.2 pg (27.0-33.0); Mean Corpuscular Volume 95.1 fL (80.0-98.0); Mean Platelet Volume 8.9 fL (9.4-12.3); Monocytes Absolute Auto 0.5 X10*3/uL (0.1-1.2); Monocytes Percent Auto 5.3 % (2-11); Neutrophils Percent Auto 86.2 % (45-73); Platelet Count 438 X10*3/uL (160-400); Red Blood Count 3.91 X10*6/uL (4.20-5.50); Red Cell Distribution Width 12.7 % (11.0-16.0); White Blood Count 9.2 X10*3/uL (4.8-10.8)
[2022-09-04 16:39] LABS: Erythrocyte Sedimentation Rate 10 MM/HR (0-20)
[2022-09-04 16:41] LABS: Alanine Aminotransferase 10 U/L (0-31); Albumin Level 3.5 g/dL (3.5-5.0); Alkaline Phosphatase 83 U/L (39-117); Aspartate Amino Transferase 11 U/L (5-31); Bilirubin Direct < 0.2 mg/dL (0.0-0.5); Bilirubin Total 0.3 mg/dL (0.0-1.0); Iron 34 mcg/dL (30-160); Percent Iron Saturation 11 % (15-50); Total Iron Binding Capacity 296 mcg/dL (228-428); Total Protein 6.4 g/dL (6.5-8.0); Unsaturated Iron Binding 262 ug/dL
[2022-09-04 16:48] LABS: Ferritin 57 ng/mL (10-122)
[2022-09-04 17:47] LABS: Folate 8.7 ng/mL (> or = 4.0); Vitamin B12 290 pg/mL (200-900)
== END 2022-09-04 15:03 | disposition home or self-care (01) ==
LOC: HO.LAB 15:02
PROVIDERS: Visit Provider Internal Medicine
DX: K50.819 Crohn's disease of both small and large intestine with unspecified complications (principal)
CPT/HCPCS: 36415; 80076; 82607; 82728; 82746; 83540; 85025; 85652; 86140

== ENCOUNTER 2022-09-10 12:11 | Outpatient (REF) | payer OTHER, SELFPAY ==
--- NOTE | ~2022-09-10 | MR_ITS ---
EXAMINATION: MRI PELVIS WITH AND WITHOUT CONTRAST CLINICAL INFORMATION: Reason for Exam CROHN'S DZ, R/O RECTOVAGINAL FISTULA COMPARISON: CT pelvis 06/08/2022 TECHNIQUE: Multiple routine MRI sequences through the pelvis were obtained before and after the uneventful administration of 6.5 mL of Gadavist gadolinium-based IV contrast. FINDINGS: VISUALIZED BOWEL: Few prominent fluid-filled loops of redundant sigmoid colon with intervening areas of narrowing, incompletely characterized on this MR pelvis. No perianal inflammatory changes. No definite findings to suggest rectal vaginal fistula. REPRODUCTIVE ORGANS: Uterus and cervix are unremarkable. Ovaries are unremarkable. No fluid within the vagina to suggest rectal vaginal fistula. KIDNEYS: Two normally positioned kidneys are seen. No hydronephrosis. BLADDER: Unremarkable. PELVIC FREE FLUID: No free fluid or ascites. LYMPH NODES: No pathologically enlarged lymph nodes. OSSEOUS STRUCTURES: No acute or suspicious osseous abnormalities. MR/MR pelvis wo/w con IMPRESSION: No definite findings to suggest rectovaginal fistula, however a CT pelvis with rectal contrast may be more sensitive for evaluation. Few prominent fluid-filled loops of redundant sigmoid colon with intervening areas of narrowing, incompletely characterized on this MR pelvis. CT or MR enterography could be considered for further evaluation, to evaluate known underlying inflammatory bowel disease.
== END 2022-09-10 12:12 | disposition home or self-care (01) ==
LOC: HO.MRI 12:11
PROVIDERS: PCP Internal Medicine; Visit Provider Internal Medicine
DX: K50.819 Crohn's disease of both small and large intestine with unspecified complications (principal)
CPT/HCPCS: 72197; A9585

== ENCOUNTER 2022-09-11 14:56 | Outpatient (REF) | payer OTHER, SELFPAY ==
--- NOTE | ~2022-09-11 | MM_ITS ---
EXAMINATION: BONE DENSITOMETRY CLINICAL INDICATION: Long-term (current) use of systemic steroids. Crohn's disease of both small and large intestine with unspecified complications. COMPARISON: This is the patient's baseline examination. TECHNIQUE: Using a [employer] DXA System (software version: 13.1) manufactured by [employer], dual-energy x-ray absorptiometry was performed of the lumbar spine and left hip. The images are of good technical quality. Based on ISCD (International Society for Clinical Densitometry) standards of reporting, Z-scores instead of T-scores are reported in this 37 year old premenopausal female. Summary results are attached. FINDINGS: AP SPINE L1-L4: BMD 1.203 g/cm2, T-score 0.2, Z-score 0.2, Z-score within expected range for age. LEFT FEMUR, NECK: BMD 0.996 g/cm2, T-score -0.3, Z-score 0.1, Z-score within expected range for age. LEFT FEMUR, TOTAL: BMD 1.065 g/cm2, T-score 0.5, Z-score 0.7, Z-score within expected range for age. IDENTIFIED RISK FACTORS: Glucocorticoids (chronic), low calcium intake, secondary osteoporosis. HISTORY OF FRACTURE: None listed. MEDICATIONS: ERT. MM/XR DEXA axial skeleton IMPRESSION: 1. DIAGNOSIS: Based on the lowest Z-score value of 0.1 in the femoral neck, the patient's bone density is within the expected range for age. 2. 10-YEAR FRACTURE RISK PREDICTION, FRAX: Not performed in this perimenopausal patient. 3. Treatment Recommendations: NOF guidelines recommend consideration for treatment in postmenopausal women and men age 50 and older presenting with the following: -A hip or vertebral (clinical or morphometric) fracture. -T-score less than or equal to -2.5 at the femoral neck or spine after appropriate evaluation to exclude secondary causes. -Low bone mass at the hip or spine and a 10-year fracture probability by FRAX of greater than or equal to 3% for hip fracture or greater than or equal to 20% for major osteoporotic fracture based on the [place] adapted WHO algorithm. 4. Other Recommendations: All treatment decisions require clinical judgment and consideration of individual patient factors, including patient preferences, comorbidities, previous drug use, risk factors not captured in the FRAX model (e.g. frailty, falls, vitamin D deficiency, increased bone turnover, interval significant decline in bone density) and possible under or overestimation of fracture risk by FRAX. FUTURE SCAN RECOMMENDATION: People with diagnosed cases of osteoporosis or at high risk for fracture should have regular bone mineral density tests. For patients eligible for Medicare, routine testing is allowed once every 2 years. The testing frequency can be increased to one year for patients who have rapidly progressing disease, those who are receiving or discontinuing medical therapy to restore bone mass, or have additional risk factors.
== END 2022-09-11 14:57 | disposition home or self-care (01) ==
LOC: HO.MAMMO 14:56
PROVIDERS: Visit Provider Internal Medicine
DX: Z13.820 Encounter for screening for osteoporosis (principal); Z79.52 Long term (current) use of systemic steroids; K50.819 Crohn's disease of both small and large intestine with unspecified complications; M85.80 Other specified disorders of bone density and structure, unspecified site
CPT/HCPCS: 77080

== ENCOUNTER 2022-09-14 07:59 | Day surgery (SDC) | payer OTHER, SELFPAY ==
[2022-09-07 12:58] VITALS: BMI 24.3
--- NOTE | 2022-09-13 10:01 | P.CONAN_ITS ---
Documented by User: Thelma Kaplan NP 09/13/22 10:02 HPI - Anesthesia Eval Consult details Narrative: 37yo F for EUA,I&D and debridement Perineum PMFSH Active Problems Active Problems: All Active Problems (Updated 09/07/22 @ 12:50 by Meredith Tarango RN) Anemia (Chronic) Well woman exam with routine gynecological exam (Acute) Surveillance for control, oral contraceptives (Acute) Bartholin cyst (Acute) Vulvar mass (Acute) Labial abscess (Acute) Cervical cancer screening (Acute) Screen for sexually transmitted diseases (Acute) Crohn disease (Acute) Past Medical History Medical History Anxiety and depression Asthma Crohn disease GERD (gastroesophageal reflux disease) HTN (hypertension) Iron deficiency anemia Family History Family History Father Stroke Heart disease Diabetes HTN (hypertension) Family history of problems with anesthesia: No Surgical History Surgical History H/O colonoscopy History of bowel resection History of esophagogastroduodenoscopy (EGD) History of repair of ACL Hx of cholecystectomy History of Problems with Anesthesia: No Social History Social History Household Members: None Housing: Condominium Alcohol intake: current Alcohol intake frequency: holidays/special occasions only Patient Tobacco Use Status: Never used Tobacco Second Hand Smoke Exposure: No Use of substances other than those prescribed or required for medical reasons: No Are you DNR?: No Advance Directives: No Advance Directives Information Provided: Yes Advance Directives on File: No service: No Current occupational status: employed Gender identity: Female Meds Allergies Allergy/AdvReac Type Severity Reaction Status Date / Time dextran sulfate Allergy Severe Anaphylaxis Verified 09/07/22 12:47 (from iron dextran) iron Allergy Severe N/V (from Verified 09/07/22 12:47 iron dextran) zinc Allergy Severe Nausea and Verified 07/23/22 14:36 Vomiting Home Medications Medication Instructions Recorded Confirmed Last Taken Type bupropion HCl 150 mg tablet,12 hr 1 tab PO BID 06/03/20 09/07/22 09/14/22 History sustained-release enalapril maleate 10 mg tablet 1 tab PO BID 06/03/20 09/07/22 05/23/22 History omeprazole 20 mg tablet,delayed 20 mg PO BID 03/01/21 09/07/22 05/23/22 History release vedolizumab 300 mg intravenous 300 mg IV Q4W 03/01/21 09/07/22 05/15/22 History solution (Entyvio) budesonide 3 mg 3 cap PO DAILY 05/02/22 09/07/22 05/22/22 History capsule,delayed,extended release albuterol sulfate 90 mcg/actuation 2 puff inhalation Q4H PRN Wheezing 05/23/22 09/07/22 04/04/22 History aerosol inhaler mesalamine 250 mg capsule,extended 1,000 mg PO BID 07/10/22 09/07/22 Unknown History release (Pentasa) prednisone 10 mg tablet 5 mg PO DAILY 07/23/22 09/07/22 09/14/22 History amoxicillin 875 mg-potassium 1 tab PO BID 09/14/22 09/14/22 09/14/22 History clavulanate 125 mg tablet metronidazole 500 mg tablet 1 tab PO BID 09/14/22 09/14/22 09/14/22 History Exam Exam Date and Time: September 13, 2022 1001 Height,Weight and Vital Signs: Height 5 ft 3 in Weight 62.142 kg Pertinent Lab Results Pertinent Lab Results: Laboratory Tests 09/04/22 15:20 WBC 9.2 Hgb 11.8 L Hct 37.2 Plt Count 438 H Assessment and Plan Assessment Anesthesia Assessment: Chart Reviewed Final Anesthetic Review Family History of Problems with Anesthesia: No History of Problems with Anesthesia: No Documented by User: Charleen Hollingsworth MD 09/14/22 10:21 [facility] Past Medical History Medical History Anxiety and depression Asthma Crohn disease GERD (gastroesophageal reflux disease) HTN (hypertension) Iron deficiency anemia Family History Family History Father Stroke Heart disease Diabetes HTN (hypertension) Surgical History Surgical History H/O colonoscopy History of bowel resection History of esophagogastroduodenoscopy (EGD) History of repair of ACL Hx of cholecystectomy Social History Social History Household Members: None Housing: Condominium Alcohol intake: current Alcohol intake frequency: holidays/special occasions only Patient Tobacco Use Status: Never used Tobacco Second Hand Smoke Exposure: No Use of substances other than those prescribed or required for medical reasons: No Are you DNR?: No Advance Directives: No Advance Directives Information Provided: Yes Advance Directives on File: No service: No Current occupational status: employed Gender identity: Female Meds Allergies Allergy/AdvReac Type Severity Reaction Status Date / Time dextran sulfate Allergy Severe Anaphylaxis Verified 09/07/22 12:47 (from iron dextran) iron Allergy Severe N/V (from Verified 09/07/22 12:47 iron dextran) zinc Allergy Severe Nausea and Verified 07/23/22 14:36 Vomiting Home Medications Medication Instructions Recorded Confirmed Last Taken Type bupropion HCl 150 mg tablet,12 hr 1 tab PO BID 06/03/20 09/07/22 09/14/22 History sustained-release enalapril maleate 10 mg tablet 1 tab PO BID 06/03/20 09/07/22 05/23/22 History omeprazole 20 mg tablet,delayed 20 mg PO BID 03/01/21 09/07/22 05/23/22 History release vedolizumab 300 mg intravenous 300 mg IV Q4W 03/01/21 09/07/22 05/15/22 History solution (Entyvio) budesonide 3 mg 3 cap PO DAILY 05/02/22 09/07/22 05/22/22 History capsule,delayed,extended release albuterol sulfate 90 mcg/actuation 2 puff inhalation Q4H PRN Wheezing 05/23/22 09/07/22 04/04/22 History aerosol inhaler mesalamine 250 mg capsule,extended 1,000 mg PO BID 07/10/22 09/07/22 Unknown History release (Pentasa) prednisone 10 mg tablet 5 mg PO DAILY 07/23/22 09/07/22 09/14/22 History amoxicillin 875 mg-potassium 1 tab PO BID 09/14/22 09/14/22 09/14/22 History clavulanate 125 mg tablet metronidazole 500 mg tablet 1 tab PO BID 09/14/22 09/14/22 09/14/22 History Exam Height,Weight and Vital Signs: Height 5 ft 3 in Weight 62.142 kg Vital Signs Temp Pulse Resp BP Pulse Ox O2 Del Method 09/14/22 08:52 97.5 F 98 16 147/97 H 100 Room Air Airway Mallampati Class: II TM Dist: >3cm Neck ROM: Full Loose/Missing/Broken Teeth: No (Crowns intact. Permanent metal bar in place behind bottom teeth. Denies broken, missing, loose teeth) Heart: RRR Lungs: CTAB Assessment and Plan Assessment Anesthesia Assessment: Anesthesia Plan Discussed Final Anesthetic Review NPO: Yes ASA Class: II Final Preanesthetic Review: No Changes in Pt Med Stat, Meds/Allgs Chart Reviewed, Consent Obtained/Reviewed and Anes Risks/Benef Reviewed Patient Risk: Low Procedure Risk: Low Assessment/Block/Sedation in SS: Assess/Block/Sedation-SS Anesthetic Plan Anesthetic Plan: GA Disposition: Standard PACU
[2022-09-14] VITALS (7 sets, daily range): BP systolic 132–147; BP diastolic 80–97; PULSE 95–101; RESP 14–18; TEMP 36.3–36.7; O2SAT 96–100
[2022-09-14 08:59] LABS: UPreg QC Valid YES; Urine Pregnancy NEGATIVE (NEGATIVE)
--- NOTE | 2022-09-14 08:59 | MHC.SHP ---
Pre-Procedural Eval Section A Date of Service: 09/14/22 Section B Chief Complaint: Other specified noninflammatory disorders of vulva Details of Present Illness: has had recurrent cyst with drainage and induration on vulvar area Relevant Family History (Specify if Yes): No Relevant Social History: None Present Medications: see Short Stay Collaborative assessment Medical History: Significant History (hx of Crohn's ds) Allergies: Allergies Allergy/AdvReac Type Severity Reaction Status Date / Time dextran sulfate Allergy Severe Anaphylaxis Verified 09/07/22 12:47 (from iron dextran) iron Allergy Severe N/V (from Verified 09/07/22 12:47 iron dextran) zinc Allergy Severe Nausea and Verified 07/23/22 14:36 Vomiting Review of Systems Sugical H&P ROS: Negative: Constitution, Cardiovascular, Respiratory, Neurological, Psychiatric, Hem-Onc, Allergic/Immunologic, Gastrointestinal, Genitourinary, Musculoskeletal, Integumentary, Endocrine and Eyes/Ears/Nose/Throat Exam Surgical H&P Exam: Normal: HEENT, Normal: Heart, Normal: Lungs, Normal: Extremities, Normal: Abdomen, Normal: Skin and Normal: Neurological Exam Comment: cystic induration with sinus vulvar area on right Plan I have reviewed the history and physical and performed a pertinent physical examination on my patient. No changes have occurred unless specified. Time Spent With Patient Time: Total time managing care of this patient today ____ minutes.
[2022-09-14] MEDS: Lactated Ringers 1,000 ML 100 ML IVCONT (09:00)
--- NOTE | 2022-09-14 09:58 | P.OP_ITS ---
Operative Note Operative Note Date of Service: 09/14/22 Narrative: Preop diagnosis: labial abscess, hx of Crohn's ds Postop diagnosis: subcutaneous fistula, vulvar area on the right, no fistulous tract to vagina or anus seen Procedure: Exam under anesthesia, fistulotomy, and excisional debridement of subcutaneous fistula in the vulva Surgeon: Redd Jensen MD assistant director of public works: ILDEFONSO Kam Student The patient is a 37F with a long hx of Crohn's disease, with an area of recurrent swelling and drainage along with pain and tenderness on the vulvar area on the right. Her MRI did not reveal any fistulous tract to the vagina or the anus. She understood the technique of EUA and was aware of the risks, benefits and alternatives. She was brought to the OR and placed under anesthesia, general via LMA. She was in lithotomy position. The perineal area including the vagina was prepped and draped in the uual fashion. A surgical timeout was done. The patient received Cefazolin 2 g IV. Examination of the perineal area showed a 3 cm induration in the right labia majora. This area was infiltrated with Lidocaine 1%. There were 2 pinhole sinuses seen about 2 cm apart on this area. Examination of the vaginal canal did not suggest any induration or evidence of a sinus tract to this area. There was no cordlike induration towards the anus. There were no sinus seen in the perianal skin. Digital exam of the anus did not reveal any induration. I was able to pass a probe from one sinus to the other easily. This was consistent with a subcutaneous fistula. I unroofed this by opening the skin and subcutaneous layers using electrocautery. The entire fistula tract was exposed. There seemed to be an old abscess cavity in this area with marked hypergranulation tissue. I probed and examined this cavity and fistula tract and this appeared to be blind without any deeper tract. I sharply debrided the tract and cvity with electrocautery. I also achieved hemostasis with electrocautery. I infiltrated the area with Marcaine .5% for postop analgesia. Dressings were applied and the procedure was completed. The patient tolerated the procedure well. Initial and final counts of sponges and instruments were correct. EBL was minimal. The patient was extubated without difficulty and transferred to the recovery room with stable VS.
== END 2022-09-14 11:44 | disposition home or self-care (01) ==
PROVIDERS: Nurse Practitioner; PCP Internal Medicine; Visit Provider Surgery
PROC: (CPT 58999; principal; 2022-09-14 10:10)
DX: N90.89 Other specified noninflammatory disorders of vulva and perineum (principal); K50.90 Crohn's disease, unspecified, without complications; F41.8 Other specified anxiety disorders; J45.909 Unspecified asthma, uncomplicated; K21.9 Gastro-esophageal reflux disease without esophagitis; I10 Essential (primary) hypertension; D50.9 Iron deficiency anemia, unspecified; Z79.899 Other long term (current) drug therapy; Z88.8 Allergy status to other drugs, medicaments and biological substances
CPT/HCPCS: 58999; 81025; J0690; J1100; J2250; J2405; J2765; J2795; J3010

== ENCOUNTER → 2022-09-27 09:54 | Outpatient (BNVA) | payer OTHER, SELFPAY | PROVIDERS: PCP Internal Medicine; Visit Provider Surgery | DX: Z13.89 Encounter for screening for other disorder (principal) ==

== ENCOUNTER → 2022-10-18 14:10 | Outpatient (BNVA) | payer OTHER, SELFPAY | PROVIDERS: PCP Internal Medicine; Visit Provider Surgery | DX: Z13.89 Encounter for screening for other disorder (principal) ==

== ENCOUNTER → 2022-11-29 14:10 | Outpatient (BNVA) | payer OTHER, SELFPAY | PROVIDERS: PCP Internal Medicine; Visit Provider Surgery | DX: Z13.89 Encounter for screening for other disorder (principal) ==

== ENCOUNTER → 2023-01-03 14:40 | Outpatient (BNVA) | payer OTHER, SELFPAY | PROVIDERS: PCP Internal Medicine; Visit Provider Surgery ==

== ENCOUNTER 2023-01-16 07:50 | Outpatient (REF) | payer OTHER, SELFPAY | END 2023-01-16 07:51 | disposition home or self-care (01) | LOC: HO.MDS 07:50 | PROVIDERS: Visit Provider Internal Medicine | DX: D50.9 Iron deficiency anemia, unspecified (principal) | CPT/HCPCS: 96365; J1756 ==

== ENCOUNTER 2023-01-23 07:35 | Outpatient (REF) | payer OTHER, SELFPAY | END 2023-01-23 07:36 | disposition home or self-care (01) | LOC: HO.MDS 07:35 | PROVIDERS: Visit Provider Internal Medicine | DX: D50.9 Iron deficiency anemia, unspecified (principal) | CPT/HCPCS: 96365; J1756 ==

== ENCOUNTER 2023-01-30 07:39 | Outpatient (REF) | payer OTHER, SELFPAY | END 2023-01-30 07:40 | disposition home or self-care (01) | LOC: HO.MDS 07:39 | PROVIDERS: Visit Provider Internal Medicine | DX: D50.9 Iron deficiency anemia, unspecified (principal) | CPT/HCPCS: 96365; 96375; J1756 ==

== ENCOUNTER 2023-02-06 07:45 | Outpatient (REF) | payer OTHER, SELFPAY | END 2023-02-06 07:46 | disposition home or self-care (01) | LOC: HO.MDS 07:45 | PROVIDERS: Visit Provider Internal Medicine | DX: D50.9 Iron deficiency anemia, unspecified (principal) | CPT/HCPCS: 96365; 96375; J1756 ==

== ENCOUNTER 2023-07-15 08:54 | Outpatient (REF) | payer OTHER, SELFPAY ==
[2023-07-16 02:23] LABS: CT PCR NOT DETECTED (Not Detect.); NG PCR NOT DETECTED (Not Detect.)
[2023-07-16 12:08] LABS: BV Int Neg Control Negative (Negative); BV Int Pos Control Positive (Positive)
== END 2023-07-15 08:55 | disposition home or self-care (01) ==
LOC: HO.LNP 08:54
PROVIDERS: Visit Provider Advanced Practice Midwife
DX: Z20.2 Contact with and (suspected) exposure to infections with a predominantly sexual mode of transmission (principal); N90.89 Other specified noninflammatory disorders of vulva and perineum; N75.0 Cyst of Bartholin's gland
CPT/HCPCS: 0353U; 87480; 87510; 87660

== ENCOUNTER 2023-07-15 08:54 | Outpatient (AMB) | payer OTHER, SELFPAY ==
--- NOTE | 2023-07-15 09:00 | A.OFFVIS_ITS ---
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 Attending Physician Required: No Information Interpreted: non-clinical & clinical Sister Superior: Sister Superior Present (Aidyn) Allergies dextran sulfate Allergy (Severe, Verified 07/15/23 09:03) Anaphylaxis (from iron dextran) iron [Iron] Allergy (Severe, Verified 07/15/23 09:03) DIFFICULTY BREATHING, vomiting zinc Allergy (Severe, Verified 07/15/23 09:03) Nausea and Vomiting Medication List - Last Reconciled 07/15/23 by Anne-Marie Hoffmann CNM albuterol sulfate 90 mcg/actuation 2 puffs inhalation Q4H PRN budesonide ER 3 caps PO DAILY bupropion HCl 1 tab PO BID cyanocobalamin (vitamin B-12) 1,000 mcg subcut QMONTH enalapril maleate 1 tab PO BID mesalamine ER (Pentasa) 1,000 mg PO BID norethin-e.estradiol triphasic 0.5/0.75/1 mg- 35 mcg (Nortrel (28)) 1 tab PO DAILY 84 days norethin-e.estradiol triphasic 0.5/0.75/1 mg- 35 mcg (Nortrel (28)) 1 tab PO ONCE omeprazole 20 mg PO BID [Pentasa PO 8XD] prednisone 5 mg PO DAILY vedolizumab (Entyvio) 300 mg IV Q4W Is last menstrual period known: Yes Last menstrual period: 06/11/23 Post menopausal: No 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 Alegre as last year it had been lanced by Dr. Greene and in the emergency room in the past and now she believes she has another 1 on the opposite side which is now the left side. She is wondering if the drainage from the 1 on the right contributed to the start of the 1 on the left she is sexually active. She tends to wax and she does not shave she does work out but she changes from her workout clothes. She has Crohn's that was diagnosed when she was age 20 and she is on multiple medications including injectables and prednisone and has been she also had a bowel resection in the past she says last year before they did the surgery they did an MRI to make sure that it was not a fistula that was related to her Crohn's disease she tends to have very tight muscle tone because of dealing with her Crohn's and she seems to notice that sometimes this seems to bother her more after she has been pushing to strain to go to the bathroom to fully empty it isn't exactly constipation but a matter of fully emptying. Childbearing is not in her plans and she would like a refill on her control pills she has no worries at all about STIs but is open to testing for completion sake. [facility] Medical History GERD (gastroesophageal reflux disease) Anxiety and depression HTN (hypertension) Iron deficiency anemia Asthma Crohn disease Surgical History History of incision and drainage (09/14/22) H/O colonoscopy History of esophagogastroduodenoscopy (EGD) History of bowel resection Hx of cholecystectomy History of repair of ACL Family History Father Stroke Heart disease Diabetes HTN (hypertension) Household Members: None Housing: Condominium Alcohol intake: current Alcohol intake frequency: holidays/special occasions only Patient Tobacco Use Status: Never used Tobacco Second Hand Smoke Exposure: No service: No Current occupational status: employed Gender identity: Female Female Reproductive History Menstrual Age of Menarche: 15 Duration of menses: 3-5 days Date of last menstrual period: 06/11/23 control method: pills Total pregnancies: 0 Date of last pap smear: 07/10/22 (negative) History of abnormal pap smear: No Physical Exam Vital Signs: Last Vital Signs BP 128/76 07/15/23 09:02 BMI result Body Mass Index 27.0 Const General: healthy appearing, comfortable, no acute distress, well developed and alert Nutritional Appearance: average body habitus Orientation/consciousness: patient oriented x3 Limitations: no limitations HEENT Head: Yes normocephalic Neck Neck: Yes normal visual inspection Chest Chest palpation & inspection: normal inspection of the chest Breast/axilla inspection: normal inspection of the breasts and normal inspection of the axillae Breast/axilla palpation: normal palpation of the breasts and normal palpation of the axillae Resp Effort & Inspection: normal respiratory effort GI Inspection: Yes normal to inspection, No Abdominal wall edema and No distended Palpation (GI): Soft to palpation and nontender Other: There is a slight swelling of the right labia distally and some drainage at the base where there is a an opening and there is sums light swelling on the left- hand side as well these are both distal to usual placements of Bartholin glands She has very tight muscle tone vaginal discharge is completely within normal limits with a nulliparous cervix testing for STIs done as routine and to rule out but there is no suspicion. Extremely tight muscle tone noted. General: Yes bladder normal to palpation External Female Exam: normal external appearance and normal appearance of the urethra Speculum Exam - Vagina: normal appearance of the vagina, normal palpation and normal vaginal discharge Speculum Exam - Cervix: normal appearance of the cervix, normal palpation and nontender Bimanual exam- vagina & uterus: normal bimanual exam, normal palpation, uterine size normal, bladder normal to palpation, consistency normal, normal palpation, uterine mobility normal, uterine shape normal, No Cervical tenderness present, non-tender and no cervical motion tenderness Bimanual Exam- Adnexa, other: normal adnexae, no masses, normal and No adnexal tenderness Neuro General: patient oriented x3 Assessment & Plan Assessment & Plan (1) Screen for sexually transmitted diseases: Code(s): Z11.3 - Encounter for screening for infections with a predominantly sexual mode of transmission (2) Cervical cancer screening: Comment: 07/10/2022 Pap is negative with negative HPV. Code(s): Z12.4 - Encounter for screening for malignant neoplasm of cervix (3) Vulvar mass: Comment: History of Crohn's disease Code(s): N90.89 - Other specified noninflammatory disorders of vulva and perineum (4) Bartholin cyst: Comment: Versus scar tissue previous I&D versus Bartholin's gland mass Code(s): N75.0 - Cyst of Bartholin's gland (5) Surveillance for control, oral contraceptives: Code(s): Z30.41 - Encounter for surveillance of contraceptive pills (6) Well woman exam with routine gynecological exam: Code(s): Z01.419 - Encounter for gynecological examination (general) (routine) without abnormal findings Plan -----Discussed in this visit the following: healthy balanced diet, regular and consistent exercise, getting recommended health screens, doing the best she can for her particular health concerns, kegel exercises, pap smear screening and followup recommendations, mammography screening and SBE, normal changes in cycles in her life stage--- . Pills were refilled at her request she is not really worried about STIs. She takes extremely good care of herself. Discussed options at this point she actually contemplated coming to the emergency room on the weekend because the pain was increasing she held off until this appointment she thinks she would prefer to see Dr. Greene if possible because he has seen her before in she he knows her history, and he ordered the MRI last year before she was referred to Dr. Sis rojas for the surgery. Her surgery with Dr. Alegre as was last August. She does warm soaks and takes very good care of herself as much as she can. She would prefer to see Dr. Greene if she could but if she cannot hold out and the pain becomes too great she may go to the emergency room. We have placed her on Dr. Greene schedule for Saturday of this week and I asked her to cancel that appointment if she goes to the emergency room 1st and has the issue taking care of their. Explored other content possible contributing factors in terms of bowel strain and perspiration but her problem may be extremely complicated she is doing all the right things to take care of herself. Explored her medication regimen as well. Discussed complete emptying and recommend discussion of this issue with Dr. Barnhart. Discussed the possible role of pelvic floor therapy to help with learning how to relax her muscles and have better control of things rather than her constant tightness which is probably a defense against potential leakage route related to Crohn's. Her next visit will be Saturday morning unless she has goes to the emergency room 1st. Note the patient was in tears for most of the visit. Orders: Orders CT NG by PCR Today Z11.3 - Encounter for screening for infections with a predominantly sexual mode of transmission Bacterial Vaginosis Panel Today Z11.3 - Encounter for screening for infections with a predominantly sexual mode of transmission Medications: Refilled norethin-e.estradiol triphasic 0.5/0.75/1 mg- 35 mcg (Nortrel (28)) 1 tab PO ONCE 84 tabs 4RF Coding Level of Care Code Est Pt Prev Care 18-39y(65762) Diagnoses Screen for sexually transmitted diseases Z11.3 Cervical cancer screening Z12.4 Vulvar mass N90.89 Bartholin cyst N75.0 Surveillance for control, oral contraceptives Z30.41 Well woman exam with routine gynecological exam Z01.419
[2023-07-15 09:02] VITALS: BP 128/76; BMI 27.0
== END 2023-07-15 09:57 | disposition home or self-care (01) ==
PROVIDERS: Visit Provider Advanced Practice Midwife
DX: Z01.419 Encounter for gynecological examination (general) (routine) without abnormal findings (principal); N90.89 Other specified noninflammatory disorders of vulva and perineum; N75.0 Cyst of Bartholin's gland; Z30.41 Encounter for surveillance of contraceptive pills
CPT/HCPCS: 99395

== ENCOUNTER 2023-07-17 07:59 | Outpatient (REF) | payer OTHER, SELFPAY | END 2023-07-17 08:00 | disposition home or self-care (01) | LOC: HO.LNP 07:59 | PROVIDERS: PCP Internal Medicine; Visit Provider Obstetrics & Gynecology | DX: N76.4 Abscess of vulva (principal) | CPT/HCPCS: 56405; 87070; 87147; 87205 ==

== ENCOUNTER 2023-07-17 07:59 | Outpatient (AMB) | payer OTHER, SELFPAY ==
--- NOTE | 2023-07-17 08:08 | A.OFFVIS_ITS ---
Intake Vital Signs 07/17/23 08:10 Height 5 ft 1 in Weight 141 lb 1.533 oz BMI 26.7 BP 146/92 H Intake Visit Reasons: vulvar cyst recurrent per [employer] Supervisor Required: No Information Interpreted: non-clinical & clinical Verifying Machine Operator: Verifying Machine Operator Present (Chely MLIIAN) Accompanied by: Self / Same As Patient Allergies dextran sulfate Allergy (Severe, Verified 07/17/23 08:11) Anaphylaxis (from iron dextran) iron [Iron] Allergy (Severe, Verified 07/17/23 08:11) DIFFICULTY BREATHING, vomiting zinc Allergy (Severe, Verified 07/17/23 08:11) Nausea and Vomiting Is last menstrual period known: Yes Last menstrual period: 06/15/23 HPI HPI Comments History of Present Illness Details Presenting complaining of left labial tender swelling. The patient is on prednisone an immunosuppressant for her Crohn's disease and is waxing the perineal area. History of right labial abscess few months ago [facility] Medical History GERD (gastroesophageal reflux disease) Anxiety and depression HTN (hypertension) Iron deficiency anemia Asthma Crohn disease Surgical History History of incision and drainage (09/14/22) H/O colonoscopy History of esophagogastroduodenoscopy (EGD) History of bowel resection Hx of cholecystectomy History of repair of ACL Family History Father Stroke Heart disease Diabetes HTN (hypertension) Social History Household Members: None Housing: Condominium Alcohol intake: current Alcohol intake frequency: holidays/special occasions only Patient Tobacco Use Status: Never used Tobacco Second Hand Smoke Exposure: No service: No Current occupational status: employed Gender identity: Female Female Reproductive History Menstrual Age of Menarche: 15 Date of last menstrual period: 06/15/23 Review of Systems Const All systems reviewed & are unremarkable except as noted in HPI and below Physical Exam Vital Signs: Last Vital Signs BP 146/92 H 07/17/23 08:10 BMI result Body Mass Index 26.7 General: Yes no CVA tenderness External Female Exam: normal appearance of the urethra and other (Left labial abscess) Speculum Exam - Vagina: normal appearance of the vagina, normal palpation, no lesions and no masses Speculum Exam - Cervix: normal appearance of the cervix, normal palpation, no lesions, no masses and nontender Bimanual exam- vagina & uterus: normal bimanual exam, normal palpation, uterine size normal, normal palpation, uterine shape normal, No Cervical tenderness present and non-tender Bimanual Exam- Adnexa, other: normal adnexae Back/Spine/Pelvis Back: no CVA tenderness Office Procedures Incision/Drainage ASSOCIATE PROFESSOR OF CRIMINAL JUSTICE Incision/Drainage ASSOCIATE PROFESSOR OF CRIMINAL JUSTICE Details: Before the procedure was started d/w patient the procedure, alternatives (do nothing, medical rx), & all the risks associated with the procedure ( bleeding , infection, vulvar scarring, painful intercourse, injury to vessels, possible need for transfusion with all its risks) then patient signed the consent. Preoperative diagnosis: Vulvar Abscess. Operation: Left Vulvar I & D Post-operative diagnosis: Same Anesthesia: Lidocaine 1% 5 cc used Procedure: The skin was prepped with Betadine, palpation was used for guidance, 11-blade was used to incise the skin contiguous with the abscess cavity. This yielded 5 cc of purulent fluid &substantially decompressed the swelling, a clean dressing was used at the end. The patient tolerated the procedure well. The patient was sent home in stable condition. Discharge Instructions: The patient was instructed to stop waxing the perineal area , to call if temp>100.4, abdominal pain, nausea/vomiting. This note was generated with a voice recognition program. Some errors may have been overlooked during the review of this note. Sometimes these errors may affect the content or meaning of a given sentence. 14099-K&D of vulva/perineum All charges added?: Procedure code (CPT) selection complete Assessment & Plan Assessment & Plan (1) Labial abscess: Comment: Left side Code(s): N76.4 - Abscess of vulva Plan: Discussed with the patient the finding on physical exam showing a left labial abscess, recommended I&D. I&D done, see procedure note. Instructions given to patient to stop waxing her perineal area. Orders: Orders Incision & Drainage ASSOCIATE PROFESSOR OF CRIMINAL JUSTICE Today N76.4 - Abscess of vulva Coding Level of Care Code Est Pt Level 3 (97120) Procedure Only Diagnoses Labial abscess N76.4 CPT Codes Incision/Drainage ASSOCIATE PROFESSOR OF CRIMINAL JUSTICE - IDGYN 1: 02133-D&D of vulva/perineum ([id number])
[2023-07-17 08:10] VITALS: BP 146/92; BMI 26.7
== END 2023-07-17 08:39 | disposition home or self-care (01) ==
PROVIDERS: PCP Internal Medicine; Visit Provider Obstetrics & Gynecology
DX: N76.4 Abscess of vulva (principal)
CPT/HCPCS: 56405

== ENCOUNTER 2023-07-26 06:45 | Outpatient (REF) | payer OTHER, SELFPAY ==
[2023-07-26 08:31] LABS: Alanine Aminotransferase 17 U/L (0-31); Albumin Level 3.4 g/dL (3.5-5.0); Alkaline Phosphatase 70 U/L (39-117); Anion Gap 10 (12-20); Aspartate Amino Transferase 13 U/L (5-31); Bilirubin Direct 0.1 mg/dL (0.0-0.5); Bilirubin Total 0.3 mg/dL (0.0-1.0); Blood Urea Nitrogen 13 mg/dL (9-16); C Reactive Protein 2.49 mg/dL (< or = 0.50); Calcium 8.6 mg/dL (8.4-10.2); Carbon Dioxide 28 mmol/L (22-29); Chloride 105 mmol/L (96-108); Estimated Glomerular Filt Rate > 60; Glucose Random 85 mg/dL (60-115); Potassium 4.1 mmol/L (3.3-5.1); Sodium 139 mmol/L (135-145); Total Protein 6.5 g/dL (6.5-8.0)
[2023-07-26 08:42] LABS: Erythrocyte Sedimentation Rate 10 MM/HR (0-20)
== END 2023-07-26 06:46 | disposition home or self-care (01) ==
LOC: HO.LAB 06:45
PROVIDERS: PCP Internal Medicine; Visit Provider Internal Medicine
DX: K50.819 Crohn's disease of both small and large intestine with unspecified complications (principal); Z79.899 Other long term (current) drug therapy
CPT/HCPCS: 36415; 80048; 80076; 80280; 82542; 85652; 86140

== ENCOUNTER 2023-07-30 08:01 | Outpatient (AMB) | payer OTHER, SELFPAY ==
--- NOTE | 2023-07-30 08:24 | MHC.OFFVIS ---
Intake Vital Signs 07/30/23 08:26 Height 5 ft 1 in Weight 141 lb 1.533 oz BMI 26.7 BP 122/74 Intake Visit Reasons: vag cyst follow up Allergies dextran sulfate Allergy (Severe, Verified 07/17/23 08:11) Anaphylaxis (from iron dextran) iron [Iron] Allergy (Severe, Verified 07/17/23 08:11) DIFFICULTY BREATHING, vomiting zinc Allergy (Severe, Verified 07/17/23 08:11) Nausea and Vomiting HPI HPI Comments History of Present Illness Details Presenting for follow-up from left abscess I&D, doing well with no complaints. Culture grew group C strep, the patient received amoxicillin completed her course of antibiotics. The patient is complaining of right abscess continue straining. The patient had a recurrent right labia abscess almost a year ago and she was referred to general surgery , she had debridement of her right vulvar abscess but the patient is having continuous drainage from the right vulvar abscess. [facility] Medical History GERD (gastroesophageal reflux disease) Anxiety and depression HTN (hypertension) Iron deficiency anemia Asthma Crohn disease Surgical History History of incision and drainage (09/14/22) H/O colonoscopy History of esophagogastroduodenoscopy (EGD) History of bowel resection Hx of cholecystectomy History of repair of ACL Family History Father Stroke Heart disease Diabetes HTN (hypertension) Social History Household Members: None Housing: Condominium Alcohol intake: current Alcohol intake frequency: holidays/special occasions only Patient Tobacco Use Status: Never used Tobacco Second Hand Smoke Exposure: No service: No Current occupational status: employed Gender identity: Female Female Reproductive History Menstrual Age of Menarche: 15 Date of last menstrual period: 07/25/23 Review of Systems Const All systems reviewed & are unremarkable except as noted in HPI and below Physical Exam Vital Signs: Last Vital Signs BP 122/74 07/30/23 08:26 BMI result Body Mass Index 26.7 General: Yes no CVA tenderness External Female Exam: normal external appearance, normal appearance of the urethra and other (Left vulvar abscess completely healed, right vulvar chronic abscess drainag) Speculum Exam - Vagina: normal appearance of the vagina, normal palpation, no lesions and no masses Speculum Exam - Cervix: normal appearance of the cervix, normal palpation, no lesions, no masses and nontender Bimanual exam- vagina & uterus: normal bimanual exam, normal palpation, uterine size normal, normal palpation, uterine shape normal, No Cervical tenderness present and non-tender Bimanual Exam- Adnexa, other: normal adnexae Back/Spine/Pelvis Back: no CVA tenderness Assessment & Plan Assessment & Plan (1) Labial abscess: Comment: Left side Code(s): N76.4 - Abscess of vulva Plan: Discussed with the patient the finding on left abscess completely healed and resolved, instructions given the patient to call in case of recurrence of her left abscess and to discontinue shaving her pain area. Explained to the patient that the right abscess is continuously draining, recommended patient to schedule appointment for follow-up with General surgery for further management and possible debridement. All questions answered, the patient verbalized understanding and agreed with the plan Coding Level of Care Code Est Pt Level 3 (23494) Diagnoses Labial abscess N76.4
[2023-07-30 08:26] VITALS: BP 122/74; BMI 26.7
== END 2023-07-30 08:48 | disposition home or self-care (01) ==
PROVIDERS: PCP Internal Medicine; Visit Provider Obstetrics & Gynecology
DX: N76.4 Abscess of vulva (principal)
CPT/HCPCS: 99213

== ENCOUNTER → 2023-07-30 08:01 | Outpatient (BNVA) | payer OTHER, SELFPAY | PROVIDERS: PCP Internal Medicine; Visit Provider Obstetrics & Gynecology ==

== ENCOUNTER 2023-08-01 15:04 | Outpatient (AMB) | payer OTHER, SELFPAY ==
--- NOTE | 2023-08-01 15:28 | MHC.OFFVIS ---
Intake Vital Signs 08/01/23 15:29 Height 5 ft 1 in Weight 141 lb 1.533 oz BMI 26.7 BP 133/89 Blood Pressure Location Rt brachial Position Sitting Pulse 104 H Intake Visit Reasons: Right vulvar chronic abscess Intake Note: This patient presents for an assessment for right vulvar chronic abscess. Pt c/o; reports completed one round of abx, reports draining. 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: No Accompanied by: Self / Same As Patient Allergies dextran sulfate Allergy (Severe, Verified 08/01/23 15:36) Anaphylaxis (from iron dextran) iron [Iron] Allergy (Severe, Verified 08/01/23 15:36) DIFFICULTY BREATHING, vomiting zinc Allergy (Severe, Verified 08/01/23 15:36) Nausea and Vomiting Medication List - Last Reconciled 08/01/23 by Redd Jensen MD albuterol sulfate 90 mcg/actuation 2 puffs inhalation Q4H PRN amoxicillin-pot clavulanate 875-125 mg 1 tab PO BID 7 days budesonide ER 3 caps PO DAILY bupropion HCl 1 tab PO BID cyanocobalamin (vitamin B-12) 1,000 mcg subcut QMONTH enalapril maleate 1 tab PO BID mesalamine ER (Pentasa) 1,000 mg PO BID norethin-e.estradiol triphasic 0.5/0.75/1 mg- 35 mcg (Nortrel (28)) 1 tab PO DAILY 84 days norethin-e.estradiol triphasic 0.5/0.75/1 mg- 35 mcg (Nortrel (28)) 1 tab PO ONCE omeprazole 20 mg PO BID [Pentasa PO 8XD] prednisone 5 mg PO DAILY vedolizumab (Entyvio) 300 mg IV Q4W HPI Right vulvar chronic abscess HPI Details She is here for what she feels was a tender swelling on the left labial area. She is known to me because of her history of right vulvar abscess. She had undergone debridement in the OR last August,. She has known Crohn's disease in takes multiple medications for this including Entyvia, prednisone and budesonide. She had a different area in the left perineum which had become swollen as well and she had an I and D done by Dr. Greene 2 weeks ago. She denies GI complaints. [facility] Medical History (Updated 08/01/23 @ 16:24 by Redd Jensen MD) Left genital labial abscess GERD (gastroesophageal reflux disease) Anxiety and depression HTN (hypertension) Iron deficiency anemia Asthma Crohn disease Surgical History History of incision and drainage (09/14/22) H/O colonoscopy History of esophagogastroduodenoscopy (EGD) History of bowel resection Hx of cholecystectomy History of repair of ACL Family History Father Stroke Heart disease Diabetes HTN (hypertension) Social History Household Members: None Housing: Condominium Alcohol intake: current Alcohol intake frequency: holidays/special occasions only Patient Tobacco Use Status: Never used Tobacco Second Hand Smoke Exposure: No service: No Current occupational status: employed Gender identity: Female Female Reproductive History Menstrual Age of Menarche: 15 Review of Systems Const Denies chills and Denies fever(s) Card Denies chest pain, Denies dyspnea and Denies dyspnea on exertion Resp Denies cough, Denies dyspnea and Denies dyspnea on exertion GI Denies hematochezia and Denies change in bowel habits Denies hematuria Musc Denies back pain and Denies limited range of motion Neuro Denies focal weakness and Denies convulsions Psych Denies depression and Denies mood swings Physical Exam Vital Signs: Last Vital Signs Pulse 104 H 08/01/23 15:29 BP 133/89 08/01/23 15:29 BMI result Body Mass Index 26.7 Const General: comfortable and no acute distress Resp Effort & Inspection: normal respiratory effort GI Palpation (GI): Soft to palpation, not firm and nontender Other: Round, tender well-defined induration in the left labial area, no discharge Assessment & Plan Assessment & Plan (1) Left genital labial abscess: Code(s): N76.4 - Abscess of vulva Plan: In view of her tenderness with this 1 cm spherical induration, I told her I will aspirate this with a needle. I explained the technique of this procedure. I reviewed the risks, benefits, and alternatives and she had given consent. The area of this labia was prepped and draped. Lidocaine 1% was used for local anesthesia. I then used a gauge 18 needle to enter this spherical induration. Small amounts of pus was aspirated . I told her I will see her again next week in the office. I instructed her to compresses in the area for now. If this recurs, I will likely schedule her for and D under anesthesia. Coding Level of Care Code Est Pt Level 3 (20124) Diagnoses Left genital labial abscess N76.4
[2023-08-01 15:29] VITALS: BP 133/89; PULSE 104; BMI 26.7
== END 2023-08-01 15:57 | disposition home or self-care (01) ==
PROVIDERS: PCP Internal Medicine; Referring Provider Obstetrics & Gynecology; Visit Provider Surgery
DX: N76.4 Abscess of vulva (principal)
CPT/HCPCS: 99213

== ENCOUNTER → 2023-08-01 15:04 | Outpatient (BNVA) | payer OTHER, SELFPAY | PROVIDERS: PCP Internal Medicine; Referring Provider Obstetrics & Gynecology; Visit Provider Surgery ==

== ENCOUNTER 2023-08-08 14:39 | Outpatient (AMB) | payer OTHER, SELFPAY ==
--- NOTE | 2023-08-08 14:42 | MHC.OFFVIS ---
Intake Vital Signs 08/08/23 14:50 Height 5 ft 1 in Weight 141 lb 1.533 oz BMI 26.7 Intake Visit Reasons: s/p aspiration Right vulvar abscess Intake Note: This patient presents for a follow-up assessment s/p aspiration Right vulvar abscess. Patient c/o; reports improvement since last visit. Patient Relations Representative Required: No Accompanied by: Self / Same As Patient Allergies dextran sulfate Allergy (Severe, Verified 08/08/23 14:51) Anaphylaxis (from iron dextran) iron [Iron] Allergy (Severe, Verified 08/08/23 14:51) DIFFICULTY BREATHING, vomiting zinc Allergy (Severe, Verified 08/08/23 14:51) Nausea and Vomiting Medication List - Last Reconciled 08/08/23 by Redd Jensen MD albuterol sulfate 90 mcg/actuation 2 puffs inhalation Q4H PRN amoxicillin-pot clavulanate 875-125 mg 1 tab PO BID 7 days budesonide ER 3 caps PO DAILY bupropion HCl 1 tab PO BID cyanocobalamin (vitamin B-12) 1,000 mcg subcut QMONTH enalapril maleate 1 tab PO BID mesalamine ER (Pentasa) 1,000 mg PO BID norethin-e.estradiol triphasic 0.5/0.75/1 mg- 35 mcg (Nortrel (28)) 1 tab PO DAILY 84 days norethin-e.estradiol triphasic 0.5/0.75/1 mg- 35 mcg (Nortrel (28)) 1 tab PO ONCE omeprazole 20 mg PO BID [Pentasa PO 8XD] prednisone 5 mg PO DAILY vedolizumab (Entyvio) 300 mg IV Q4W HPI s/p aspiration Right vulvar abscess HPI Details I had aspirated a vulvar abscess last week and had instructed her to come back to be re-evaluated. She says she actually feels much better now. The pain has improved significantly. She denies any drainage. She feels that the swelling has gone down significantly. [facility] Medical History (Updated 08/01/23 @ 16:24 by Redd Jensen MD) Left genital labial abscess GERD (gastroesophageal reflux disease) Anxiety and depression HTN (hypertension) Iron deficiency anemia Asthma Crohn disease Surgical History History of incision and drainage (09/14/22) H/O colonoscopy History of esophagogastroduodenoscopy (EGD) History of bowel resection Hx of cholecystectomy History of repair of ACL Family History Father Stroke Heart disease Diabetes HTN (hypertension) Social History Household Members: None Housing: Condominium Alcohol intake: current Alcohol intake frequency: holidays/special occasions only Patient Tobacco Use Status: Never used Tobacco Second Hand Smoke Exposure: No service: No Current occupational status: employed Gender identity: Female Female Reproductive History Menstrual Age of Menarche: 15 Review of Systems Const Denies chills and Denies fever(s) Card Denies chest pain, Denies dyspnea and Denies dyspnea on exertion Resp Denies cough, Denies dyspnea and Denies dyspnea on exertion GI Denies hematochezia and Denies change in bowel habits Denies hematuria Musc Denies back pain and Denies limited range of motion Neuro Denies focal weakness and Denies convulsions Psych Denies depression and Denies mood swings Physical Exam Vital Signs: BMI result Body Mass Index 26.7 Const General: comfortable and no acute distress Resp Effort & Inspection: normal respiratory effort Cardio Rate: regular rate Other: The vulvar area swelling has improved significantly. There is no significant drainage. There is no large induration. There is no redness or tenderness. Assessment & Plan Assessment & Plan (1) Left genital labial abscess: Code(s): N76.4 - Abscess of vulva Plan: I had aspirated this last week with a needle and she says that this actually helped. She feels much better. The swelling and induration has improved significantly. Her pain and tenderness have resolved She understands that there is a chance of recurrence. I have instructed her to come back to the office if she feels any recurrent swelling and pain on the area. She is also currently on medications for control of her Crohn's disease Coding Level of Care Code Est Pt Level 2 (59060) Diagnoses Left genital labial abscess N76.4
[2023-08-08 14:50] VITALS: BMI 26.7
== END 2023-08-08 15:00 | disposition home or self-care (01) ==
PROVIDERS: PCP Internal Medicine; Visit Provider Surgery
DX: N76.4 Abscess of vulva (principal)
CPT/HCPCS: 99212

== ENCOUNTER → 2023-08-08 14:39 | Outpatient (BNVA) | payer OTHER, SELFPAY | PROVIDERS: PCP Internal Medicine; Visit Provider Surgery ==

== ENCOUNTER 2023-10-11 18:28 | Emergency (ER) | payer OTHER, SELFPAY ==
--- NOTE | ~2023-10-11 | CT_ITS ---
EXAMINATION: CT abdomen pelvis wo IV con CLINICAL INFORMATION: Reason for Exam Crohns flare, periumbilical pain COMPARISON: Prior CT 2021 TECHNIQUE: Multidetector volumetric imaging was performed from the superior aspect of the liver through the pubic symphysis a noncontrasted study Sagittal and coronal reformatted images were obtained on the technologist's workstation. This CT examination was performed using dose optimization techniques as appropriate, variously including the following: *Automated exposure control *Adjustment of mA and/or kV according to patient size (this includes techniques or standardized protocols for targeted exams where dose is matched to indication/reason for exam; i.e. extremities or head) *Use of iterative reconstruction technique DLP: 486 mGy-cm FINDINGS: LOWER THORAX: Included lung bases are clear. HEPATOBILIARY: No focal hepatic lesions. No biliary ductal dilatation. GALLBLADDER: Gallbladder has been removed. SPLEEN: Spleen is normal in size. PANCREAS: No focal mass or ductal dilatation. STOMACH AND GASTROINTESTINAL TRACT: Stomach is grossly unremarkable. Mildly dilated the small bowel loops mid and distal abdomen along with segment of thickened bowel, this is compatible with patient history of Crohn's disease. No CT evidence of bowel perforation or complete obstruction. Evaluation is limited due to lack of oral and IV contrast and crowding of bowel loops. ADRENALS: No adrenal nodules. KIDNEYS/URETERS: No hydronephrosis, stones or solid mass lesions. URINARY BLADDER: Partially decompressed. PELVIC VISCERA: Unremarkable PERITONEUM: No free air or fluid. LYMPH NODES: No lymphadenopathy. VASCULAR:Abdominal aorta normal in size, no aneurysm found. BONES, ABDOMINAL WALL AND SOFT TISSUES: Age-appropriate changes of the spine and skeletal system, no destructive osteolytic or osteosclerotic bone lesion found CT/CT abdomen pelvis wo IV con IMPRESSION: 1. Mildly dilated small bowel loops mid and distal abdomen along with segment of thickened bowel, this is compatible with patient history of Crohn's disease. No CT evidence of bowel perforation or complete obstruction. Evaluation is limited due to lack of oral and IV contrast and crowding of bowel loops. 2. Status post cholecystectomy.
[2023-10-11 18:54] VITALS: BP 159/95; PULSE 110; RESP 16; TEMP 36.8; O2SAT 97; BMI 27.1
--- NOTE | 2023-10-11 18:56 | ED.ABDPAIN ---
HPI - Abdominal Pain General Chief Complaint: Abdominal Pain Stated Complaint: chrons disease, stomach in extreme pain. V/D Time Seen by Provider: 10/11/23 22:30 Source: patient, RN notes reviewed and old records reviewed Mode of arrival: ambulatory Limitations: no limitations History of Present Illness HPI narrative: 38-year-old female with past medical history significant for Crohn's disease followed by Dr. Barnhart, hypertension presents for evaluation abdominal pain. Patient reports she woke up at 5:00 a.m. this morning with abdominal pain and persistent diarrhea This feels like her previous Crohn's flares She states that she had prior to than 10 episodes of nonbloody, watery diarrhea today She has severe, 8 out of 10 pain to the mid, lower abdomen She reports a previous cholecystectomy and partial bowel resection with appendectomy due to a bowel perforation related to a Crohn's flare. Patient states that she has not had a flare approximately 8 years She is taking Entyvio, prednisone 5 mg daily, as well as another medication that she does not remember the name of She sees GI, Dr. Barnhart on Saturday, 4 days from today Related Data Home Medications Medication Instructions Recorded Confirmed bupropion HCl 150 mg tablet,12 hr 1 tab PO BID 06/03/20 08/08/23 sustained-release enalapril maleate 10 mg tablet 1 tab PO BID 06/03/20 08/08/23 omeprazole 20 mg tablet,delayed 20 mg PO BID 03/01/21 08/08/23 release vedolizumab 300 mg intravenous 300 mg IV Q4W 03/01/21 08/08/23 solution (Entyvio) budesonide 3 mg 3 cap PO DAILY 05/02/22 08/08/23 capsule,delayed,extended release albuterol sulfate 90 mcg/actuation 2 puff inhalation Q4H PRN Wheezing 05/23/22 08/08/23 aerosol inhaler mesalamine 250 mg capsule,extended 1,000 mg PO BID 07/10/22 08/08/23 release (Pentasa) prednisone 10 mg tablet 5 mg PO DAILY 07/23/22 08/08/23 Pentasa PO 8XD 12/12/22 08/08/23 cyanocobalamin (vitamin B-12) 1,000 mcg subcut QMONTH 10/27/23 12/21/23 1,000 mcg/mL injection kit Previous Rx's Medication Instructions Recorded norethindrone-e.estradiol 1 tab PO DAILY 84 days #84 tabs 05/18/21 triphasic 0.5 mg/0.75 mg/1 mg-35 mcg tablet (Nortrel (28)) norethindrone-e.estradiol 1 tab PO ONCE #84 tabs 07/15/23 triphasic 0.5 mg/0.75 mg/1 mg-35 mcg tablet (Nortrel ()) amoxicillin 875 mg-potassium 1 tab PO BID 7 days #14 tabs 07/19/23 clavulanate 125 mg tablet oxycodone 5 mg tablet 5 mg PO Q6H PRN pain #12 tabs 10/12/23 prednisone 20 mg tablet 40 mg (2 x 20 mg) PO DAILY #10 tabs 10/12/23 Allergies Allergy/AdvReac Type Severity Reaction Status Date / Time dextran sulfate Allergy Severe Anaphylaxis Verified 10/11/23 18:54 (from iron dextran) iron [Iron] Allergy Severe DIFFICULTY Verified 10/11/23 18:54 BREATHING, vomiting zinc Allergy Severe Nausea and Verified 10/11/23 18:54 Vomiting Review of Systems Constitutional: Denies body ache(s), Denies chills and Denies fever(s) Eyes: Denies blurry vision Cardiovascular: Denies chest pain and Denies dyspnea Respiratory: Denies cough and Denies dyspnea Gastrointestinal: Reports abdominal pain, Denies melena, Denies hematochezia, Reports diarrhea, Reports loose stools, Denies nausea and Denies vomiting Musculoskeletal: Denies back pain Skin/Breast: Denies rash PMFSH Past Medical History Medical History (Updated 10/11/23 @ 22:48 by [place]) Left genital labial abscess GERD (gastroesophageal reflux disease) Anxiety and depression HTN (hypertension) Iron deficiency anemia Asthma Crohn disease Surgical History History of incision and drainage (09/14/22) H/O colonoscopy History of esophagogastroduodenoscopy (EGD) History of bowel resection Hx of cholecystectomy History of repair of ACL Family History Family History Father Stroke Heart disease Diabetes HTN (hypertension) Social History Social History Household Members: None Housing: Condominium Alcohol intake: current Alcohol intake frequency: holidays/special occasions only Patient Tobacco Use Status: Never used Tobacco Second Hand Smoke Exposure: No Advance Directives: No Advance Directives Information Provided: No service: No Current occupational status: employed Gender identity: Female Physical Exam ED Vital Signs: Vital Signs - 24 hr 10/11/23 18:54 10/11/23 22:17 10/11/23 23:59 Temperature 98.3 F 98.9 F Pulse Rate 110 H 97 94 Respiratory Rate 16 17 16 Blood Pressure 159/95 H 150/93 H 135/80 Pulse Oximetry 97 100 97 Oxygen Delivery Method Room Air Room Air Room Air BMI result Body Mass Index 27.1 Const General: healthy appearing, comfortable, no acute distress, alert and awake Nutritional Appearance: well nourished Orientation/consciousness: patient oriented x3 HENMT Head: Yes normocephalic and Yes atraumatic Eyes Eyelids: Yes eyelids normal Conjunctivae: conjunctivae normal Sclerae: sclerae normal Corneas: corneas normal Pupils: Equal, round and reactive pupils present EOM: EOMs intact bilaterally Neck Neck: Yes full ROM Resp Effort & Inspection: normal respiratory effort, able to speak in complete sentences and not labored Cardio Rate: regular rate Rhythm: regular rhythm GI Inspection: No distended Palpation (GI): Soft to palpation, not firm and not rigid Skin General skin exam: elasticity normal Neuro General: patient oriented x3 Cranial nerves: Yes Equal, round and reactive pupils present and Yes Bilaterally intact EOM present Cognition (Neuro): normal cognition Extrem Other: Moving all extremities well without any obvious deformities Course Course Course Narrative: RME:?hx of severe Crohn's disease here for eval of periumbilical abdominal pain, nausea, vomiting x1, and diarrhea beginning this morning. states she took tylenol, zofran, and ativan around 1530 today. She takes budesonide, prednisone, pentasa daily for Crohns. sees dr barnhart and has an appointment with him next Saturday. endorses history of intestinal perforation in 2006 secondary to Crohns. normoactive bs. abd diffusely ttp, greater around umbilicus. +guarding. no rebound. labs, CT ordered Full HPI, ROS and PE to be performed by the primary ED provider. Reevaluation(s) Reevaluation #1: Patient re-evaluated reports feeling much better. She still has a dull abdominal pain but not nearly as significant as on arrival. The patient reports that she is comfortable with discharge. She believes that she can manage at home with just Motrin and Tylenol. We will discharge her with a short course of prednisone for her Crohn's flare. Time: 00:42 Medical Decision Making Medical Decision Making [facility] Narrative: 38-year-old female with history as described above presents for evaluation of abdominal pain and diarrhea. Denies any recent antibiotic use or travel. She is quite tender on exam with guarding to most of the abdomen but specifically in the infraumbilical region. She had a CT scan ordered does not show any evidence of perforation or free air. It is consistent with a Crohn's flare. Will treat with morphine, Zofran, fluids and a dose of Solu-Medrol IV. If we can control the patient's pain insert remains in hemodynamically stable, she can likely be discharged with prednisone 40 mg daily until she sees GI in 4 days. Differential Diagnosis Differential Diagnoses: The differential diagnosis associated with the presentation includes Crohn's flare Bowel perforation Colitis Diverticulitis Bowel obstruct Lab Data [facility] Lab Attestation statement: I reviewed the patient's lab results. No leukocytosis. Mild anemia consistent with the patient's baseline. No significant electrolyte abnormality 10/11/23 19:18 10/11/23 19:18 Labs: Lab Results 10/11/23 Range/Units 19:18 WBC 7.7 (4.8-10.8) X10*3/uL RBC 3.88 L (4.20-5.50) X10*6/uL Hgb 11.8 L (12.0-16.0) g/dl Hct 35.7 L (37.0-47.0) % MCV 92.0 (80.0-98.0) fL MCH 30.4 (27.0-33.0) pg MCHC 33.1 (31.0-35.0) g/dl RDW 12.9 (11.0-16.0) % Plt Count 385 (160-400) X10*3/uL MPV 8.7 L (9.4-12.3) fL Immature Gran % (Auto) 0.6 H (0.0-0.4) % Neut % (Auto) 72.6 (45-73) % Lymph % (Auto) 13.4 L (20-40) % Mower % (Auto) 12.3 H (2-11) % Eos % (Auto) 0.6 (0-4) % Baso % (Auto) 0.5 (0-2) % Lymph # (Auto) 1.0 L (1.2-4.9) X10*3/uL Mower # (Auto) 1.0 (0.1-1.2) X10*3/uL Eos # (Auto) 0.1 (0.0-0.4) X10*3/uL Baso # (Auto) 0.0 (0.0-0.2) X10*3/uL Abs Immat Gran (auto) 0.05 H (0.00-0.03) X10*3/uL Absolute Neuts (auto) 5.6 (2.0-8.3) x10*3/uL Absolute Nucleated RBC 0.000 (0.0-0.012) X10*3/uL Nucleated RBC % (auto) 0.0 (0.0-0.2) /100WBC Sodium 137 (135-145) mmol/L Potassium 3.4 (3.3-5.1) mmol/L Chloride 105 (96-108) mmol/L Carbon Dioxide 26 (22-29) mmol/L Anion Gap 9 L (12-20) BUN 10 (9-16) mg/dL Creatinine 0.93 (0.5-1.4) mg/dL Estim Creat Clear Calc 70.7 Estimated GFR > 60 Random Glucose 110 (60-115) mg/dL Calcium 8.5 (8.4-10.2) mg/dL Magnesium 2.3 (1.6-2.6) mg/dL Total Bilirubin 0.3 (0.0-1.0) mg/dL AST 13 (5-31) U/L ALT 15 (0-31) U/L Alkaline Phosphatase 62 (39-117) U/L Total Protein 7.0 (6.5-8.0) g/dL Albumin 3.6 (3.5-5.0) g/dL Lipase 29 (8-78) U/L Urine Color Dark Yellow Urine Appearance Clear Urine pH 6.0 (5.0-9.0) Ur Specific [place] >= 1.030 H (1.005-1.025) Urine Protein Trace (Neg-Trace) mg/dL Urine Glucose (UA) Negative (Negative) mg/dL Urine Ketones Trace (Negative) mg/dL Urine Blood Small (1+) H (Negative) Urine Nitrite Negative (Negative) Ur Leukocyte Esterase Trace H (Negative) Urine RBC 11-20 H (0-2) /HPF Urine WBC 0-5 (0-5) /HPF Ur Squamous Epith Cells 3-5 (0-2) /HPF Urine Bacteria None Seen (None Seen) Hyaline Casts 0-2 (0-2) /LPF Urine Test NEGATIVE (NEGATIVE) Medications Administered Discontinued Medications Generic Name Dose Route Start Last Admin Trade Name Freq PRN Reason Stop Dose Admin Sodium Chloride 1,000 mls @ 999 mls/hr 10/11/23 22:45 10/12/23 00:11 Ns IV 10/11/23 23:45 Infused .Q1H1M HARJINDER Infusion Methylprednisolone Sodium Succinate 125 mg 10/11/23 22:41 10/11/23 22:52 Methylprednisolone Sod Succ 125 Mg/2 Ml Vial IVPUSH 10/11/23 22:42 125 mg ONCE ONE Administration Morphine Sulfate 4 mg 10/11/23 22:41 10/11/23 22:51 Morphine Sulfate 4 Mg/Ml Cartridge IVPUSH 10/11/23 22:42 4 mg ONCE ONE Administration Protocol Ondansetron HCl 4 mg 10/11/23 22:41 10/11/23 22:52 Ondansetron Hcl 4 Mg/2 Ml Vial IVPUSH 10/11/23 22:42 4 mg ONCE ONE Administration Discharge Plan Discharge Clinical Impression: Crohn disease, Abdominal pain Patient Disposition: Home, Self-Care Instructions: Crohn Disease (ED) Additional Instructions: Your workup in the emergency department today was reassuring. This includes your blood work as well as her CT scan You are likely experiencing a flare of her Crohn's disease Follow-up with GI on Saturday as discussed Take prednisone 40 mg daily for the next 5 days You may use Motrin/Tylenol for pain. You can use oxycodone for severe breakthrough pain This may make you sleepy, did not drink alcohol or drive after taking it Prescriptions: New prednisone 20 mg tablet 40 mg PO DAILY Qty: 10 0RF oxycodone 5 mg tablet 5 mg PO Q6H PRN (Reason: pain) Qty: 12 0RF Rx Instructions: Partial Fill upon patient request. No Action Nortrel () 0.5/0.75/1 mg- 35 mcg tablet 1 tab PO DAILY 84 Days Qty: 84 0RF amoxicillin-pot clavulanate 875-125 mg tablet 1 tab PO BID 7 Days Qty: 14 0RF omeprazole 20 mg Tablet,Delayed Release (Dr/Ec) 20 mg PO BID Entyvio 300 mg Recon Soln 300 mg IV Q4W budesonide 3 mg capsule,delayed,extend.release 3 cap PO DAILY Pentasa 500 mg capsule PO 8XD cyanocobalamin (vitamin B-12) 1,000 mcg/mL kit 1,000 mcg SUBCUT QMONTH bupropion HCl 150 mg tablet sustained-release 12 hr 1 tab PO BID enalapril maleate 10 mg tablet 1 tab PO BID albuterol sulfate 90 mcg/actuation HFA aerosol inhaler 2 puff inhalation Q4H PRN (Reason: Wheezing) Pentasa 250 mg capsule, extended release 1,000 mg PO BID prednisone 10 mg tablet 5 mg PO DAILY Nortrel () 0.5/0.75/1 mg- 35 mcg tablet 1 tab PO ONCE Qty: 84 4RF
--- NOTE | 2023-10-11 19:19 | MHC.EDTECH ---
Patient brought into triage area,labs,and a urine sample obtained and sent to lab.
[2023-10-11 19:23] LABS: MANUAL DIFF FLAG NO
[2023-10-11 19:25] LABS: Basophils Percent Auto 0.5 % (0-2); Eosinophils Absolute Auto 0.1 X10*3/uL (0.0-0.4); Eosinophils Percent Auto 0.6 % (0-4); Hematocrit 35.7 % (37.0-47.0); Hemoglobin 11.8 g/dl (12.0-16.0); Imm Gran Abs Auto 0.05 X10*3/uL (0.00-0.03); Imm Gran Pct Auto 0.6 % (0.0-0.4); Lymphocytes Percent Auto 13.4 % (20-40); Mean Corpuscular HGB Conc 33.1 g/dl (31.0-35.0); Mean Corpuscular Hemoglobin 30.4 pg (27.0-33.0); Mean Platelet Volume 8.7 fL (9.4-12.3); Monocytes Percent Auto 12.3 % (2-11); Neutrophils Absolute Auto 5.6 x10*3/uL (2.0-8.3); Neutrophils Percent Auto 72.6 % (45-73); Platelet Count 385 X10*3/uL (160-400); Red Blood Count 3.88 X10*6/uL (4.20-5.50); Red Cell Distribution Width 12.9 % (11.0-16.0); White Blood Count 7.7 X10*3/uL (4.8-10.8)
[2023-10-11 19:26] LABS: Appearance Urine Clear; Color Urine Dark Yellow; Glucose Urine UA Negative (Negative); Leukocyte Esterase Urine Trace (Negative); Nitrite Urine Negative (Negative); Specific Gravity - Urine >= 1.030 (1.005-1.025); UMIC TRIGGER UACC YES; Urine Blood Small (1+) (Negative); Urine Ketones Trace mg/dL (Negative); Urine Protein Trace mg/dL (Neg-Trace)
[2023-10-11 19:27] LABS: UPreg QC Valid YES; Urine Pregnancy NEGATIVE (NEGATIVE)
[2023-10-11 19:31] LABS: Bacteria Urine None Seen (None Seen); Hyaline Casts Urine 0-2 /LPF (0-2); WBC Urine 0-5 /HPF (0-5)
[2023-10-11 19:43] LABS: Alanine Aminotransferase 15 U/L (0-31); Albumin Level 3.6 g/dL (3.5-5.0); Alkaline Phosphatase 62 U/L (39-117); Anion Gap 9 (12-20); Aspartate Amino Transferase 13 U/L (5-31); Bilirubin Total 0.3 mg/dL (0.0-1.0); Blood Urea Nitrogen 10 mg/dL (9-16); Calcium 8.5 mg/dL (8.4-10.2); Carbon Dioxide 26 mmol/L (22-29); Chloride 105 mmol/L (96-108); Creatinine Clr Calc Pharmacy 70.7; Estimated Glomerular Filt Rate > 60; Glucose Random 110 mg/dL (60-115); Lipase 29 U/L (8-78); Magnesium 2.3 mg/dL (1.6-2.6); Potassium 3.4 mmol/L (3.3-5.1); Sodium 137 mmol/L (135-145)
[2023-10-11 22:17] VITALS: BP 150/93; PULSE 97; RESP 17; TEMP 37.2; O2SAT 100
[2023-10-11] MEDS: Morphine Sulfate 4 MG/ML CARTRIDGE IVPUSH (22:51)
[2023-10-11] MEDS: methylPREDNISolone Sod Succ 125 MG/2 ML VIAL IVPUSH (22:52)
[2023-10-11] MEDS: 0.9 % Sodium Chloride 1,000 ML 999 ML IV (22:52)
[2023-10-11] MEDS: ondansetron HCL 4 MG/2 ML VIAL IVPUSH (22:52)
[2023-10-11 23:59] VITALS: BP 135/80; PULSE 94; RESP 16; O2SAT 97
== END 2023-10-12 00:57 | disposition home or self-care (01) ==
PROVIDERS: Physician Assistant Medical; Emergency Provider Internal Medicine; PCP Internal Medicine
DX: K50.90 Crohn's disease, unspecified, without complications (principal); R10.30 Lower abdominal pain, unspecified; R19.7 Diarrhea, unspecified; I10 Essential (primary) hypertension
CPT/HCPCS: 36415; 74176; 80053; 81001; 81025; 83690; 83735; 85025; 96361; 96374; 96375; 99284; J2270; J2405; J2930

== ENCOUNTER 2023-10-15 12:40 | Outpatient (REF) | payer OTHER, SELFPAY ==
--- NOTE | ~2023-10-15 | XR_ITS ---
EXAMINATION: XR ABDOMEN COMPLETE CLINICAL INDICATION: Reason for Exam Crohn's disease of small and large intestines. chest 1view, upright abd, kub COMPARISON: KUB 08/28/2018 CT abdomen 10/11/2023 TECHNIQUE: AP view of the abdomen. FINDINGS: Lines or devices: None. Nonobstructive bowel gas pattern. Moderate colonic stool burden. No extraluminal subdiaphragmatic air. No abnormal calcifications. Clear lungs. Normal cardiomediastinal silhouette. No pleural effusion or pneumothorax. Upper abdominal surgical clips. XR/XR acute abdomen series IMPRESSION: Nonobstructive bowel gas pattern. Moderate colonic stool burden.
[2023-10-15 13:48] LABS: Basophils Percent Auto 0.3 % (0-2); Hematocrit 39.5 % (37.0-47.0); Imm Gran Abs Auto 0.05 X10*3/uL (0.00-0.03); Imm Gran Pct Auto 0.7 % (0.0-0.4); Lymphocytes Absolute Auto 0.4 X10*3/uL (1.2-4.9); Lymphocytes Percent Auto 5.5 % (20-40); MANUAL DIFF FLAG SCAN; Mean Corpuscular HGB Conc 32.9 g/dl (31.0-35.0); Mean Corpuscular Hemoglobin 29.9 pg (27.0-33.0); Mean Corpuscular Volume 90.8 fL (80.0-98.0); Mean Platelet Volume 8.6 fL (9.4-12.3); Monocytes Absolute Auto 0.2 X10*3/uL (0.1-1.2); Monocytes Percent Auto 2.7 % (2-11); Neutrophils Absolute Auto 6.4 x10*3/uL (2.0-8.3); Neutrophils Percent Auto 90.8 % (45-73); Platelet Count 402 X10*3/uL (160-400); Red Blood Count 4.35 X10*6/uL (4.20-5.50); Red Cell Distribution Width 12.6 % (11.0-16.0); SCAN SMEAR FLAG 1; White Blood Count 7.1 X10*3/uL (4.8-10.8)
[2023-10-15 14:06] LABS: Appearance Urine Clear; Color Urine Yellow; Glucose Urine UA Negative (Negative); Leukocyte Esterase Urine Negative (Negative); Nitrite Urine Negative (Negative); PH 5.5 (5.0-9.0); Specific Gravity - Urine >= 1.030 (1.005-1.025); Urine Blood Negative (Negative); Urine Ketones Trace mg/dL (Negative); Urine Protein Negative (Neg-Trace)
[2023-10-15 14:14] LABS: SLIDE REVIEW VERIFIED
[2023-10-15 14:22] LABS: Alanine Aminotransferase 15 U/L (0-31); Albumin Level 3.8 g/dL (3.5-5.0); Alkaline Phosphatase 63 U/L (39-117); Anion Gap 9 (12-20); Aspartate Amino Transferase 11 U/L (5-31); Bilirubin Direct < 0.2 mg/dL (0.0-0.5); Bilirubin Total 0.2 mg/dL (0.0-1.0); Blood Urea Nitrogen 12 mg/dL (9-16); C Reactive Protein 1.25 mg/dL (< or = 0.50); Calcium 9.1 mg/dL (8.4-10.2); Carbon Dioxide 29 mmol/L (22-29); Chloride 106 mmol/L (96-108); Estimated Glomerular Filt Rate > 60; Glucose Random 109 mg/dL (60-115); Lipase 33 U/L (8-78); Potassium 3.7 mmol/L (3.3-5.1); Sodium 140 mmol/L (135-145); Total Protein 7.3 g/dL (6.5-8.0)
[2023-10-15 14:26] LABS: Erythrocyte Sedimentation Rate 10 MM/HR (0-20)
[2023-10-15 16:23] LABS: Amylase 70 U/L (28-100)
== END 2023-10-15 12:41 | disposition home or self-care (01) ==
LOC: HO.XRAY 12:40
PROVIDERS: PCP Internal Medicine; Visit Provider Internal Medicine
DX: K50.819 Crohn's disease of both small and large intestine with unspecified complications (principal); R82.90 Unspecified abnormal findings in urine
CPT/HCPCS: 36415; 74022; 80048; 80076; 81003; 82150; 83690; 85025; 85652; 86140; 87086

== ENCOUNTER 2023-10-16 15:55 | Outpatient (REF) | payer OTHER, SELFPAY ==
[2023-10-16 17:14] LABS: CDiff Gene PCR NEGATIVE (Negative)
[2023-10-16 18:51] LABS: Leukocytes Stool Qualitative NEGATIVE (NEGATIVE)
[2023-10-17 08:57] LABS: Adenovirus F 40/41 Not Detected (Not Detect.); Astrovirus Not Detected (Not Detect.); Campylobacter Not Detected (Not Detect.); Cryptosporidium Not Detected (Not Detect.); Cyclospora cayetanensis Not Detected (Not Detect.); E. coli EAEC Not Detected (Not Detect.); E. coli EPEC Not Detected (Not Detect.); E. coli ETEC Not Detected (Not Detect.); E. coli STEC Not Detected (Not Detect.); Entamoeba histolytica Not Detected (Not Detect.); Giardia lamblia Not Detected (Not Detect.); Norovirus GI/GII Not Detected (Not Detect.); Plesiomonas shigelloides Not Detected (Not Detect.); Rotavirus A Not Detected (Not Detect.); Salmonella Not Detected (Not Detect.); Sapovirus Not Detected (Not Detect.); Shigella sp./EIEC Not Detected (Not Detect.); Vibrio Not Detected (Not Detect.); Vibrio Cholerae Not Detected (Not Detect.); Yersinia enterocolitica Not Detected (Not Detect.)
[2023-10-22 19:43] LABS: Calprotectin, Fecal 2460 mcg/g
== END 2023-10-16 15:56 | disposition home or self-care (01) ==
LOC: HO.LNP 15:55
PROVIDERS: Visit Provider Internal Medicine
DX: K50.819 Crohn's disease of both small and large intestine with unspecified complications (principal)
CPT/HCPCS: 83993; 87493; 87507; 89055

== ENCOUNTER 2023-11-12 11:54 | Outpatient (REF) | payer OTHER, SELFPAY ==
[2023-11-12 12:38] VITALS: BP 130/72; PULSE 90; RESP 16; TEMP 36.7; O2SAT 98
[2023-11-12] MEDS: Acetaminophen 325 MG TABLET 975 MG PO (12:40)
--- NOTE | 2024-04-06 19:27 | PHA.MEDREC ---
Pharmacy Consult ? Medication Reconciliation Pharmacy has completed the medication reconciliation. Confirmed medications with patient. Patient confirmed her Vitamin B-12 injection once weekly and she states she is due for that she last got that 03/06/2024. The patient is also taking Stelara 90mg/mL every 4 weeks and she confirmed she just got it 04/03/24.
== END 2023-11-12 11:55 | disposition home or self-care (01) ==
LOC: HO.MDS 11:54
PROVIDERS: Visit Provider Internal Medicine
DX: K50.90 Crohn's disease, unspecified, without complications (principal)
CPT/HCPCS: 96365; J3358

== ENCOUNTER 2024-03-06 13:52 | Outpatient (REF) | payer OTHER, SELFPAY ==
[2024-03-06 14:08] LABS: MANUAL DIFF FLAG NO
[2024-03-06 15:01] LABS: Basophils Percent Auto 0.5 % (0-2); Eosinophils Percent Auto 0.2 % (0-4); Hematocrit 34.9 % (37.0-47.0); Hemoglobin 11.5 g/dl (12.0-16.0); Imm Gran Abs Auto 0.02 X10*3/uL (0.00-0.03); Imm Gran Pct Auto 0.3 % (0.0-0.4); Lymphocytes Absolute Auto 0.4 X10*3/uL (1.2-4.9); Lymphocytes Percent Auto 7.1 % (20-40); Mean Corpuscular Hemoglobin 30.3 pg (27.0-33.0); Mean Corpuscular Volume 91.8 fL (80.0-98.0); Mean Platelet Volume 9.2 fL (9.4-12.3); Monocytes Absolute Auto 0.5 X10*3/uL (0.1-1.2); Monocytes Percent Auto 8.5 % (2-11); Neutrophils Absolute Auto 4.8 x10*3/uL (2.0-8.3); Neutrophils Percent Auto 83.4 % (45-73); Platelet Count 419 X10*3/uL (160-400); Red Cell Distribution Width 12.7 % (11.0-16.0); White Blood Count 5.8 X10*3/uL (4.8-10.8)
== END 2024-03-06 13:53 | disposition home or self-care (01) ==
LOC: HO.LAB 13:52
PROVIDERS: PCP Internal Medicine; Visit Provider Internal Medicine
DX: K50.819 Crohn's disease of both small and large intestine with unspecified complications (principal)
CPT/HCPCS: 36415; 80299; 82542; 85025; 86140

== ENCOUNTER 2024-04-06 11:17 | Inpatient (IN) | payer OTHER, SELFPAY ==
--- NOTE | ~2024-04-06 | XR_ITS ---
EXAMINATION: XR ABDOMEN KUB CLINICAL INDICATION: Follow-up small bowel obstruction COMPARISON: CT abdomen and pelvis April 06, 2024, KUB October 15, 2023 TECHNIQUE: AP view of the abdomen. FINDINGS: The bowel gas pattern is normal with no evidence of ileus or obstruction. The dilated small bowel loops seen on the CT scan yesterday, are not appreciated on the KUB today. However, these loops were not as apparent on the celery stripper film further CT scan yesterday as well. Surgical clips are again seen in the gallbladder fossa. No unusual soft tissue calcifications are noted. The bones are unremarkable. XR/XR KUB IMPRESSION: No evidence of bowel obstruction on plain film radiography. The dilated small bowel loops seen on the CT scan yesterday are not appreciated on the KUB today. Electronically signed by: Donnie Beckett MD 04/13/2024 09:52 AM EDT
--- NOTE | ~2024-04-06 | CT_ITS ---
EXAMINATION: CT ABDOMEN AND PELVIS WITHOUT CONTRAST CLINICAL INFORMATION: Vomiting. Flare of Crohn disease. COMPARISON: Abdomen and pelvis CT from 10/11/2023 TECHNIQUE: Multidetector volumetric imaging was performed from the superior aspect of the liver through the pubic symphysis. Sagittal and coronal reformatted images were obtained on the technologist's workstation. This CT examination was performed using dose optimization techniques as appropriate, variously including the following: *Automated exposure control *Adjustment of mA and/or kV according to patient size (this includes techniques or standardized protocols for targeted exams where dose is matched to indication/reason for exam; i.e. extremities or head) *Use of iterative reconstruction technique DLP: 501 mGy-cm FINDINGS: LUNG BASES: Normal. No pulmonary consolidation or pleural effusion. HEPATOBILIARY: Mild hepatomegaly. Liver has normal parenchymal attenuation. No evidence of steatosis or cirrhosis. Gallbladder is surgically absent. No dilated bile ducts. PANCREAS: No edema, pancreatic ductal dilatation or mass. SPLEEN: Normal. ADRENAL GLANDS: Normal. KIDNEYS AND URETERS: Kidneys have normal size and attenuation. No perinephric fluid collection, urolithiasis or hydroureteronephrosis. BLADDER: Normal. BOWEL AND PERITONEUM: Stomach and proximal small bowel are unremarkable. The evaluation of the gastrointestinal tract is somewhat limited on this noncontrast examination. There appears to be segmental mild wall thickening of a small bowel loop in the pelvis without edema of the wall or adjacent fat stranding to overtly suggest acute flare of this particular segment of bowel (images 60-63, series 3). Immediately proximal to this, the small bowel is distended to 4.5 cm AP diameter and has air-fluid level, and further proximal to this, small bowel remains dilated with air-fluid levels. The dilated small bowel in the left lateral abdomen has a mildly thickened wall as seen over a craniocaudal distance of approximately 8 cm (coronal image 31 of series 6). Also, there appears to be mild wall thickening of a short segment of dilated small bowel in the mid abdomen along with minimal haziness of adjacent mesenteric fat (coronal reformatted images 15-18, series 6). No pneumatosis intestinalis, pneumoperitoneum or abscess. There is no evidence of an enteric fistula or sinus tract. ABDOMINAL WALL: Unremarkable. VASCULATURE: Unremarkable. LYMPH NODES: No retroperitoneal, iliac or inguinal lymphadenopathy. Lymph nodes in the mesentery or in the normal size range and measure up to 0.6 cm short axis dimension. PELVIC VISCERA: Unremarkable. MUSCULOSKELETAL: No acute or suspicious osseous abnormality. No evidence of sacroiliitis. CT/CT abdomen pelvis wo IV con IMPRESSION: Interval development of small bowel dilatation in the mid to lower abdomen with transition point in the pelvis corresponding to region of previously identified thick-walled small bowel seen on 10/11/2023. Consider possibility of a fibrous stricture associated partial small bowel obstruction. There is no evidence of engorgement of vasa recta or bowel wall edema in this particular area of transition in the pelvis. However, further proximally, there are segments of small bowel that have mild circumferential wall thickening and there is mild haziness and slight prominence of vasa recta which could reflect mild flare of inflammatory bowel disease. No enteroenteric fistula, sinus tract or abscess.
[2024-04-06 11:39] VITALS: BP 159/106; PULSE 135; RESP 20; TEMP 36.7; O2SAT 98; BMI 27.4
--- NOTE | 2024-04-06 11:40 | ED.ABDPAIN ---
HPI - Abdominal Pain General Chief Complaint: Abdominal Pain Stated Complaint: Crohns Flare up Time Seen by Provider: 04/06/24 16:54 Source: patient History of Present Illness ED Provider: Meredith Jacobs PA-C HPI narrative: 38 yo female with history of Crohn's disease (followed by Dr. Barnhart) who presents to the ER for evaluation of abdominal pain and vomiting since 2am. Hx perforation and bowel obstruction in the past. Pain is diffuse but worse on the right which is where her resection was in the past. Actively vomiting in triage. Related Data Home Medications ?Medication ?Instructions ?Recorded ?Confirmed bupropion HCl 150 mg tablet,12 hr 1 tab PO BID 06/03/20 08/08/23 sustained-release enalapril maleate 10 mg tablet 1 tab PO BID 06/03/20 08/08/23 omeprazole 20 mg tablet,delayed 20 mg PO BID 03/01/21 08/08/23 release vedolizumab 300 mg intravenous 300 mg IV Q4W 03/01/21 08/08/23 solution (Entyvio) budesonide 3 mg 3 cap PO DAILY 05/02/22 08/08/23 capsule,delayed,extended release albuterol sulfate 90 mcg/actuation 2 puff inhalation Q4H PRN Wheezing 05/23/22 08/08/23 aerosol inhaler mesalamine 250 mg capsule,extended 1,000 mg PO BID 07/10/22 08/08/23 release (Pentasa) prednisone 10 mg tablet 5 mg PO DAILY 07/23/22 08/08/23 Pentasa PO 8XD 12/12/22 08/08/23 cyanocobalamin (vitamin B-12) 1,000 mcg subcut QMONTH 06/14/23 08/08/23 1,000 mcg/mL injection kit ondansetron 4 mg disintegrating 4 mg PO Q6H PRN nausea 04/06/24 04/06/24 tablet propranolol 20 mg tablet 20 mg PO TID 04/06/24 ustekinumab 90 mg/mL subcutaneous mg subcut 04/06/24 syringe (Martylara) Previous Rx's ?Medication ?Instructions ?Recorded norethindrone-e.estradiol 1 tab PO ONCE #84 tabs 07/15/23 triphasic 0.5 mg/0.75 mg/1 mg-35 mcg tablet (Nortrel (28)) amoxicillin 875 mg-potassium 1 tab PO BID 7 days #14 tabs 07/19/23 clavulanate 125 mg tablet oxycodone 5 mg tablet 5 mg PO Q6H PRN pain #12 tabs 10/12/23 prednisone 20 mg tablet 40 mg (2 x 20 mg) PO DAILY #10 tabs 10/12/23 Allergies Allergy/AdvReac Type Severity Reaction Status Date / Time dextran sulfate Allergy Severe Anaphylaxis Verified 04/06/24 11:41 (from iron dextran) iron [Iron] Allergy Severe DIFFICULTY Verified 04/06/24 11:41 BREATHING, vomiting zinc Allergy Severe Nausea and Verified 04/06/24 11:41 Vomiting Review of Systems Review of Systems Yes all other systems are reviewed and are negative Constitutional: Denies fever(s) Cardiovascular: Denies chest pain and Denies dyspnea Respiratory: Denies dyspnea Gastrointestinal: Reports abdominal pain, Reports hematochezia, Reports GI cramping, Reports nausea and Reports vomiting PMFSH Past Medical History Attestation statement: The following information was validated with the patient. Medical History (Updated 04/06/24 @ 17:44 by ILDEFONSO Cook) Left genital labial abscess GERD (gastroesophageal reflux disease) Anxiety and depression HTN (hypertension) Iron deficiency anemia Asthma Crohn disease Surgical History History of incision and drainage (09/14/22) H/O colonoscopy History of esophagogastroduodenoscopy (EGD) History of bowel resection Hx of cholecystectomy History of repair of ACL Family History Family History Father Stroke Heart disease Diabetes HTN (hypertension) Social History Social History Household Members: None Housing: Condominium Alcohol intake: current Alcohol intake frequency: a few times a month Alcohol type: beer Patient Tobacco Use Status: Never used Tobacco Smoked in Last 30 Days: No Second Hand Smoke Exposure: No Use of substances other than those prescribed or required for medical reasons: No Advance Directives: Yes Advance Directives Information Provided: No Advance Directives on File: No Patient : No service: No Current occupational status: employed Gender identity: Female Physical Exam ED Vital Signs: Vital Signs - 24 hr 04/06/24 11:39 04/06/24 16:55 04/06/24 17:38 Temperature 98.1 F 98.4 F Pulse Rate 135 H 111 H Respiratory Rate 20 16 16 Blood Pressure 159/106 H 141/86 H Pulse Oximetry 98 97 Oxygen Delivery Method Room Air Room Air BMI result Body Mass Index 27.4 Const Other: Alert, well in appearance, however tearful and anxious Orientation/consciousness: patient oriented x3 Resp Other: Nonlabored respiration Cardio Other: Normal peripheral perfusion GI Other: Abdomen is nondistended, soft, moderate tenderness across the entire lower abdomen, most prominent right lower quadrant, mild involuntary guarding Skin Other: Warm dry no rash Neuro General: patient oriented x3, no focal motor deficits and CN's II-XI intact bilaterally Psych Other: Anxious, tearful yet cooperative Course Course Course Narrative: This is a Rapid Medical Examination (RME) performed by Juan Souza PA-C in triage. Full HPI, ROS, assessment and treatment plan per primary provider in the Main ED. 38 yo female with history of Crohn's disease (followed by Dr. Barnhart) who presents to the ER for evaluation of abdominal pain and vomiting since 2am. Hx perforation and bowel obstruction in the past. Pain is diffuse but worse on the right which is where her resection was in the past. Actively vomiting in triage. Plan: CT scan, IVF, antiemetics, labs, f/u GI Reevaluation(s) Reevaluation #1: Speaking with Dr. Jensen, the patient will be admitted to his service Time: 17:30 Medical Decision Making Medical Decision Making MDM Narrative: 38 yo female with history of Crohn's disease (followed by Dr. Barnhart) who presents to the ER for evaluation of abdominal pain and vomiting since 2am. Hx perforation and bowel obstruction in the past. Pain is diffuse but worse on the right which is where her resection was in the past. Actively vomiting in triage. Problem: Crohn's disease , prior bowel obstruction with perforation History: Per patient I have considered the following differential diagnoses: Crohn's flare, SBO, bowel perforation, intra-abdominal abscess/fistula formation Plan: Patient was seen as an RMA patient, her assessment has been expedited. Screening labs in process, CT obtained not yet read. She had been given pain medication, antiemetic and fluid. I think it is less likely that the patient has a bowel perforation and/or abscess formation, given absence of peritoneal signs. Could be a Crohn's flare given concurrent bloody stools. Doubtful bowel obstruction, her abdomen is not distended nor tympanic. I have independently reviewed the following tests: Labs: CT abdomen and pelvis:[address] [address] [address] Scan Report Signed Patient: Lisa East MR#: [id number] : 1985 Acct:[id number] Age/Sex: 38 / F ADM Date: 04/06/24 Loc: HO.ED Attending Dr: Ordering Physician: Jocelyn Souza Date of Service: 04/06/24 Procedure(s): CT abdomen pelvis wo IV con Accession Number(s): [id number] cc: TILA SOUZA MD; Jocelyn Souza~ EXAMINATION: CT ABDOMEN AND PELVIS WITHOUT CONTRAST CLINICAL INFORMATION: Vomiting. Flare of Crohn disease. COMPARISON: Abdomen and pelvis CT from 10/11/2023 TECHNIQUE: Multidetector volumetric imaging was performed from the superior aspect of the liver through the pubic symphysis. Sagittal and coronal reformatted images were obtained on the technologist's workstation. This CT examination was performed using dose optimization techniques as appropriate, variously including the following: *Automated exposure control *Adjustment of mA and/or kV according to patient size (this includes techniques or standardized protocols for targeted exams where dose is matched to indication/reason for exam; i.e. extremities or head) *Use of iterative reconstruction technique DLP: 501 mGy-cm FINDINGS: LUNG BASES: Normal. No pulmonary consolidation or pleural effusion. HEPATOBILIARY: Mild hepatomegaly. Liver has normal parenchymal attenuation. No evidence of steatosis or cirrhosis. Gallbladder is surgically absent. No dilated bile ducts. PANCREAS: No edema, pancreatic ductal dilatation or mass. SPLEEN: Normal. ADRENAL GLANDS: Normal. KIDNEYS AND URETERS: Kidneys have normal size and attenuation. No perinephric fluid collection, urolithiasis or hydroureteronephrosis. BLADDER: Normal. BOWEL AND PERITONEUM: Stomach and proximal small bowel are unremarkable. The evaluation of the gastrointestinal tract is somewhat limited on this noncontrast examination. There appears to be segmental mild wall thickening of a small bowel loop in the pelvis without edema of the wall or adjacent fat stranding to overtly suggest acute flare of this particular segment of bowel (images 60-63, series 3). Immediately proximal to this, the small bowel is distended to 4.5 cm AP diameter and has air-fluid level, and further proximal to this, small bowel remains dilated with air-fluid levels. The dilated small bowel in the left lateral abdomen has a mildly thickened wall as seen over a craniocaudal distance of approximately 8 cm (coronal image 31 of series 6). Also, there appears to be mild wall thickening of a short segment of dilated small bowel in the mid abdomen along with minimal haziness of adjacent mesenteric fat (coronal reformatted images 15-18, series 6). No pneumatosis intestinalis, pneumoperitoneum or abscess. There is no evidence of an enteric fistula or sinus tract. ABDOMINAL WALL: Unremarkable. VASCULATURE: Unremarkable. LYMPH NODES: No retroperitoneal, iliac or inguinal lymphadenopathy. Lymph nodes in the mesentery or in the normal size range and measure up to 0.6 cm short axis dimension. PELVIC VISCERA: Unremarkable. MUSCULOSKELETAL: No acute or suspicious osseous abnormality. No evidence of sacroiliitis. CT/CT abdomen pelvis wo IV con IMPRESSION: Interval development of small bowel dilatation in the mid to lower abdomen with transition point in the pelvis corresponding to region of previously identified thick-walled small bowel seen on 10/11/2023. Consider possibility of a fibrous stricture associated partial small bowel obstruction. There is no evidence of engorgement of vasa recta or bowel wall edema in this particular area of transition in the pelvis. However, further proximally, there are segments of small bowel that have mild circumferential wall thickening and there is mild haziness and slight prominence of vasa recta which could reflect mild flare of inflammatory bowel disease. No enteroenteric fistula, sinus tract or abscess. We will be paging the surgical service for consult patient's discomfort is returning, we will be ordering morphine Differential Diagnosis Differential Diagnoses: The differential diagnosis associated with the presentation includes Lab Data 04/06/24 12:13 04/06/24 12:13 Labs: Lab Results 04/06/24 04/06/24 Range/Units 12:13 17:25 WBC 8.6 (4.8-10.8) X10*3/uL RBC 4.30 (4.20-5.50) X10*6/uL Hgb 13.0 (12.0-16.0) g/dl Hct 39.2 (37.0-47.0) % MCV 91.2 (80.0-98.0) fL MCH 30.2 (27.0-33.0) pg MCHC 33.2 (31.0-35.0) g/dl RDW 12.7 (11.0-16.0) % Plt Count 373 (160-400) X10*3/uL MPV 8.8 L (9.4-12.3) fL Immature Gran % (Auto) 0.4 (0.0-0.4) % Neut % (Auto) 75.9 H (45-73) % Lymph % (Auto) 8.5 L (20-40) % Parmer % (Auto) 13.9 H (2-11) % Eos % (Auto) 0.8 (0-4) % Baso % (Auto) 0.5 (0-2) % Lymph # (Auto) 0.7 L (1.2-4.9) X10*3/uL [place]mer # (Auto) 1.2 (0.1-1.2) X10*3/uL Eos # (Auto) 0.1 (0.0-0.4) X10*3/uL Baso # (Auto) 0.0 (0.0-0.2) X10*3/uL Abs Immat Gran (auto) 0.03 (0.00-0.03) X10*3/uL Absolute Neuts (auto) 6.5 (2.0-8.3) x10*3/uL Absolute Nucleated RBC 0.000 (0.0-0.012) X10*3/uL Nucleated RBC % (auto) 0.0 (0.0-0.2) /100WBC Sodium 138 (135-145) mmol/L Potassium 3.4 (3.3-5.1) mmol/L Chloride 104 (96-108) mmol/L Carbon Dioxide 24 (22-29) mmol/L Anion Gap 13 (12-20) BUN 11 (9-16) mg/dL Creatinine 0.77 (0.5-1.4) mg/dL Estim Creat Clear Calc 86.0 Estimated GFR > 60 Random Glucose 102 (60-115) mg/dL Calcium 8.6 (8.4-10.2) mg/dL Magnesium 1.9 (1.6-2.6) mg/dL Total Bilirubin 0.7 (0.0-1.0) mg/dL Direct Bilirubin 0.2 (0.0-0.5) mg/dL AST 14 (5-31) U/L ALT 15 (0-31) U/L Alkaline Phosphatase 67 (39-117) U/L Total Protein 6.3 L (6.5-8.0) g/dL Albumin 3.5 (3.5-5.0) g/dL Lipase 22 (8-78) U/L Beta HCG, Quant < 2 mIU/mL Urine Color Dark Yellow Urine Appearance Clear Urine pH 6.0 (5.0-9.0) Ur Specific [place] >= 1.030 H (1.005-1.025) Urine Protein 30 (1+) H (Neg-Trace) mg/dL Urine Glucose (UA) Negative (Negative) mg/dL Urine Ketones 80 (Negative) mg/dL Urine Blood Negative (Negative) Urine Nitrite Negative (Negative) Ur Leukocyte Esterase Small (1+) H (Negative) Medications Administered Discontinued Medications Generic Name Dose Route Start Last Admin Trade Name Tinoq PRN Reason Stop Dose Admin Sodium Chloride 1,000 mls @ 999 mls/hr 04/06/24 11:45 04/06/24 17:13 Ns IVCONT 04/06/24 12:45 999 mls/hr .Q1H1M HARJINDER Administration Morphine Sulfate 4 mg 04/06/24 17:32 04/06/24 17:38 Morphine Sulfate 4 Mg/Ml Cartridge IVPUSH 04/06/24 17:33 4 mg ONCE ONE Administration Protocol Ondansetron HCl 4 mg 04/06/24 11:42 04/06/24 17:13 Ondansetron Hcl 4 Mg/2 Ml Vial IVPUSH 04/06/24 11:43 4 mg ONCE ONE Administration Ondansetron HCl 4 mg 04/06/24 11:44 04/06/24 11:46 Ondansetron Odt 4 Mg Tab.Rapdis TRANSLINGU 04/06/24 11:45 4 mg ONCE ONE Administration Discharge Plan Discharge Clinical Impression: Crohn disease, Partial bowel obstruction Patient Disposition: Admitted As Inpatient Print Language: Jamaican
[2024-04-06] MEDS: Ondansetron ODT 4 MG TAB.RAPDIS TRANSLINGU (11:46)
[2024-04-06 12:17] LABS: MANUAL DIFF FLAG NO
[2024-04-06 12:19] LABS: Basophils Percent Auto 0.5 % (0-2); Eosinophils Absolute Auto 0.1 X10*3/uL (0.0-0.4); Eosinophils Percent Auto 0.8 % (0-4); Hematocrit 39.2 % (37.0-47.0); Imm Gran Abs Auto 0.03 X10*3/uL (0.00-0.03); Imm Gran Pct Auto 0.4 % (0.0-0.4); Lymphocytes Absolute Auto 0.7 X10*3/uL (1.2-4.9); Lymphocytes Percent Auto 8.5 % (20-40); Mean Corpuscular HGB Conc 33.2 g/dl (31.0-35.0); Mean Corpuscular Hemoglobin 30.2 pg (27.0-33.0); Mean Corpuscular Volume 91.2 fL (80.0-98.0); Mean Platelet Volume 8.8 fL (9.4-12.3); Monocytes Absolute Auto 1.2 X10*3/uL (0.1-1.2); Monocytes Percent Auto 13.9 % (2-11); Neutrophils Absolute Auto 6.5 x10*3/uL (2.0-8.3); Neutrophils Percent Auto 75.9 % (45-73); Platelet Count 373 X10*3/uL (160-400); Red Cell Distribution Width 12.7 % (11.0-16.0); White Blood Count 8.6 X10*3/uL (4.8-10.8)
[2024-04-06 12:34] LABS: Alanine Aminotransferase 15 U/L (0-31); Albumin Level 3.5 g/dL (3.5-5.0); Alkaline Phosphatase 67 U/L (39-117); Anion Gap 13 (12-20); Aspartate Amino Transferase 14 U/L (5-31); Bilirubin Direct 0.2 mg/dL (0.0-0.5); Bilirubin Total 0.7 mg/dL (0.0-1.0); Blood Urea Nitrogen 11 mg/dL (9-16); Calcium 8.6 mg/dL (8.4-10.2); Carbon Dioxide 24 mmol/L (22-29); Chloride 104 mmol/L (96-108); Estimated Glomerular Filt Rate > 60; Glucose Random 102 mg/dL (60-115); Lipase 22 U/L (8-78); Magnesium 1.9 mg/dL (1.6-2.6); Potassium 3.4 mmol/L (3.3-5.1); Sodium 138 mmol/L (135-145); Total Protein 6.3 g/dL (6.5-8.0)
[2024-04-06 12:40] LABS: HCG Quantitative < 2 mIU/mL
[2024-04-06 16:55] VITALS: BP 141/86; PULSE 111; RESP 16; TEMP 36.9; O2SAT 97
[2024-04-06] MEDS: 0.9 % Sodium Chloride 1,000 ML 999 ML IVCONT (17:13)
[2024-04-06] MEDS: ondansetron HCL 4 MG/2 ML VIAL IVPUSH (17:13)
--- NOTE | 2024-04-06 17:15 | PC.NURSE ---
Pt comes to ED today from home with severe RLQ abd pain. Reports pain is 8/10 and started last night. Reports Hx perforated bowel 15 yrs ago with resection, and now has a narrow area there. VSS, afebrile, and A&Ox3 20g LAC and Pt medicated per OCT. Dr. Jensen at bedside.
[2024-04-06 17:36] LABS: Appearance Urine Clear; Color Urine Dark Yellow; Glucose Urine UA Negative (Negative); Leukocyte Esterase Urine Small (1+) (Negative); Nitrite Urine Negative (Negative); Specific Gravity - Urine >= 1.030 (1.005-1.025); UMIC TRIGGER UACC YES; Urine Blood Negative (Negative); Urine Ketones 80 mg/dL (Negative); Urine Protein 30 (1+) mg/dL (Neg-Trace)
[2024-04-06 17:38] VITALS: RESP 16
[2024-04-06] MEDS: Morphine Sulfate 4 MG/ML CARTRIDGE IVPUSH (17:38)
[2024-04-06 17:43] LABS: Bacteria Urine Trace (None Seen); RBC Urine 0-2 /HPF (0-2); UACC Culture Trigger YES; WBC Urine 0-5 /HPF (0-5)
--- NOTE | 2024-04-06 18:00 | P.HPGS_ITS ---
History of Present Illness History of Present Illness Date of Service: 04/08/24 Chief complaint: Partial small-bowel obstruction, Crohn's disease Narrative: Lisa East is a 38 year old female with Crohn's disease, here in the hospital because of nausea and abdominal pain. She says that this started sometime last night. She says she has had about 10 episodes of vomiting since last night. The last episode was about 3-4 hours ago She does describe some pain on the right side of her abdomen but does state that this seems to be much better. She has had some loose stools today as well. She says that she is being transitioned to a different indication for control of her Crohn's disease. She had a history of may have been small bowel resection including the right colon for Crohn's disease about 16 years ago in [facility] She had a labial abscess and had had debrided last year and I did not see any obvious fistulous tract to the rectal area at that time. She had a colonoscopy 2 years ago showing proctitis. Review of Systems Constitutional: Constitutional: Denies chills and Denies fever(s) Cardiovascular: Cardiovascular: Denies chest pain, Denies dyspnea and Denies dyspnea on exertion Respiratory: Respiratory: Denies cough, Denies dyspnea and Denies dyspnea on exertion Gastrointestinal: Gastrointestinal: Denies hematochezia and Denies change in bowel habits Genitourinary: Genitourinary: Denies hematuria Musculoskeletal: Musculoskeletal: Denies back pain and Denies limited range of motion Neurologic: Denies focal weakness and Denies convulsions Psychiatric: Psychiatric: Denies depression and Denies mood swings PMFSH Past Medical History Medical History Left genital labial abscess GERD (gastroesophageal reflux disease) Anxiety and depression HTN (hypertension) Iron deficiency anemia Asthma Crohn disease Family History Family History Father Stroke Heart disease Diabetes HTN (hypertension) Surgical History Surgical History History of incision and drainage (09/14/22) H/O colonoscopy History of esophagogastroduodenoscopy (EGD) History of bowel resection Hx of cholecystectomy History of repair of ACL Social History Social History Household Members: None Housing: Condominium Do you presently have visiting nurse or other home services: No Alcohol intake: current Alcohol intake frequency: a few times a month Alcohol type: beer Patient Tobacco Use Status: Never used Tobacco Smoked in Last 30 Days: No Second Hand Smoke Exposure: No Use of substances other than those prescribed or required for medical reasons: No Currently Displaying Signs/Symptoms of Drug Intoxication Withdrawal: No Have you been hit, kicked, punched, or otherwise hurt by someone within the past year? If so, by whom?: No Do you feel safe in your current relationship?: No Current Relationship Is there a partner from a previous relationship who is making you feel unsafe now?: No Are you made to feel afraid or neglected: No Advance Directives: Yes Advance Directives Information Provided: No Advance Directives on File: No Advance Directives Date on File: 04/07/24 Do you have a plan to hurt others: No Plan Recently lost weight without trying: No Eating poorly because of decreased appetite: No Nutrition Risks: No Nutritional Risk Patient : No : No Poor oral hygiene: No service: No Current occupational status: employed Gender identity: Female Meds Allergies Allergy/AdvReac Type Severity Reaction Status Date / Time dextran sulfate Allergy Severe Anaphylaxis Verified 04/06/24 11:41 (from iron dextran) iron [Iron] Allergy Severe DIFFICULTY Verified 04/06/24 11:41 BREATHING, vomiting zinc Allergy Severe Nausea and Verified 04/06/24 11:41 Vomiting Home Medications ?Medication ?Instructions ?Recorded ?Confirmed ?Last Taken ?Type bupropion HCl 150 mg tablet,12 hr 1 tab PO BID 06/03/20 04/06/24 04/06/24 History sustained-release enalapril maleate 10 mg tablet 1 tab PO BID 06/03/20 04/06/24 04/06/24 History omeprazole 20 mg tablet,delayed 20 mg PO BID 03/01/21 04/06/24 04/06/24 History release budesonide 3 mg 3 cap PO DAILY 05/02/22 04/06/24 04/06/24 History capsule,delayed,extended release albuterol sulfate 90 mcg/actuation 2 puff inhalation Q4H PRN Wheezing 05/23/22 04/06/24 04/06/24 History aerosol inhaler Pentasa 500 mg PO 8XD 12/12/22 04/06/24 04/06/24 History cyanocobalamin (vitamin B-12) 1,000 mcg subcut QMONTH 06/14/23 04/06/24 03/06/24 History 1,000 mcg/mL injection kit biotin 500 mcg capsule 500 mcg PO BID 04/06/24 04/06/24 04/06/24 History calcium carbonate (Calcium 600) 600 mg PO DAILY 04/06/24 04/06/24 04/06/24 History cholecalciferol (vitamin D3) 25 25 mcg PO DAILY 04/06/24 04/06/24 04/06/24 History mcg (1,000 unit) tablet (Vitamin D3) prednisone 5 mg tablet 5 mg PO DAILY 04/06/24 04/06/24 04/06/24 History propranolol 20 mg tablet 20 mg PO TID 04/06/24 04/06/24 04/06/24 History ustekinumab 90 mg/mL subcutaneous 90 mg subcut Q4W 04/06/24 04/06/24 04/03/24 History syringe (Stelara) Physical Exam Vital Signs: Vital Signs: Last Vital Signs Temp 98.4 F 04/06/24 16:55 Pulse 111 H 04/06/24 16:55 Resp 16 04/06/24 17:38 BP 141/86 H 04/06/24 16:55 Pulse Ox 97 04/06/24 16:55 O2 Del Method Room Air 04/06/24 16:55 BMI result Body Mass Index 27.4 Const: Other: Anxious General: comfortable and no acute distress Orientation/consciousness: patient oriented x3 Neck: Neck: Yes no lymphadenopathy Resp: Auscultation: clear to auscultation bilaterally Cardio: Rhythm: regular rhythm GI: Other: Mild tenderness diffusely, no obvious distention, no guarding, no rebound Palpation (GI): Soft to palpation, Tenderness to palpation present (GI) and no guarding Neuro: General: patient oriented x3 Results Results Labs: Laboratory Results WBC 8.6 X10*3/uL (4.8-10.8) 04/06/24 12:13 RBC 4.30 X10*6/uL (4.20-5.50) 04/06/24 12:13 Hgb 13.0 g/dl (12.0-16.0) 04/06/24 12:13 Hct 39.2 % (37.0-47.0) 04/06/24 12:13 MCV 91.2 fL (80.0-98.0) 04/06/24 12:13 MCH 30.2 pg (27.0-33.0) 04/06/24 12:13 MCHC 33.2 g/dl (31.0-35.0) 04/06/24 12:13 RDW 12.7 % (11.0-16.0) 04/06/24 12:13 Plt Count 373 X10*3/uL (160-400) 04/06/24 12:13 MPV 8.8 fL (9.4-12.3) L 04/06/24 12:13 Immature Gran % (Auto) 0.4 % (0.0-0.4) 04/06/24 12:13 Neut % (Auto) 75.9 % (45-73) H 04/06/24 12:13 Lymph % (Auto) 8.5 % (20-40) L 04/06/24 12:13 [place] % (Auto) 13.9 % (2-11) H 04/06/24 12:13 Eos % (Auto) 0.8 % (0-4) 04/06/24 12:13 Baso % (Auto) 0.5 % (0-2) 04/06/24 12:13 Lymph # (Auto) 0.7 X10*3/uL (1.2-4.9) L 04/06/24 12:13 [place] # (Auto) 1.2 X10*3/uL (0.1-1.2) 04/06/24 12:13 Eos # (Auto) 0.1 X10*3/uL (0.0-0.4) 04/06/24 12:13 Baso # (Auto) 0.0 X10*3/uL (0.0-0.2) 04/06/24 12:13 Abs Immat Gran (auto) 0.03 X10*3/uL (0.00-0.03) 04/06/24 12:13 Absolute Neuts (auto) 6.5 x10*3/uL (2.0-8.3) 04/06/24 12:13 Absolute Nucleated RBC 0.000 X10*3/uL (0.0-0.012) 04/06/24 12:13 Nucleated RBC % (auto) 0.0 /100WBC (0.0-0.2) 04/06/24 12:13 Sodium 138 mmol/L (135-145) 04/06/24 12:13 Potassium 3.4 mmol/L (3.3-5.1) 04/06/24 12:13 Chloride 104 mmol/L (96-108) 04/06/24 12:13 Carbon Dioxide 24 mmol/L (22-29) 04/06/24 12:13 Anion Gap 13 (12-20) 04/06/24 12:13 BUN 11 mg/dL (9-16) 04/06/24 12:13 Creatinine 0.77 mg/dL (0.5-1.4) 04/06/24 12:13 Estim Creat Clear Calc 86.0 04/06/24 12:13 Estimated GFR > 60 04/06/24 12:13 Random Glucose 102 mg/dL (60-115) 04/06/24 12:13 Calcium 8.6 mg/dL (8.4-10.2) 04/06/24 12:13 Magnesium 1.9 mg/dL (1.6-2.6) 04/06/24 12:13 Total Bilirubin 0.7 mg/dL (0.0-1.0) 04/06/24 12:13 Direct Bilirubin 0.2 mg/dL (0.0-0.5) 04/06/24 12:13 AST 14 U/L (5-31) 04/06/24 12:13 ALT 15 U/L (0-31) 04/06/24 12:13 Alkaline Phosphatase 67 U/L (39-117) 04/06/24 12:13 Total Protein 6.3 g/dL (6.5-8.0) L 04/06/24 12:13 Albumin 3.5 g/dL (3.5-5.0) 04/06/24 12:13 Lipase 22 U/L (8-78) 04/06/24 12:13 Beta HCG, Quant < 2 mIU/mL 04/06/24 12:13 Urine Color Dark Yellow 04/06/24 17:25 Urine Appearance Clear 04/06/24 17: Urine pH 6.0 (5.0-9.0) 04/06/24 17:25 Ur Specific [place] >= 1.030 (1.005-1.025) H 04/06/24 17:25 Urine Protein 30 (1+) mg/dL (Neg-Trace) H 04/06/24 17: Urine Glucose (UA) Negative mg/dL (Negative) 04/06/24 17: Urine Ketones 80 mg/dL (Negative) 04/06/24 17: Urine Blood Negative (Negative) 04/06/24 17: Urine Nitrite Negative (Negative) 04/06/24 17: Ur Leukocyte Esterase Small (1+) (Negative) H 04/06/24 17: Urine RBC 0-2 /HPF (0-2) 04/06/24 17: Urine WBC 0-5 /HPF (0-5) 04/06/24 17: Ur Squamous Epith Cells 6-10 /HPF (0-2) 04/06/24 17: Urine Bacteria Trace (None Seen) 04/06/24 17: Hyaline Casts 3-5 /LPF (0-2) 04/06/24 17:25 Impressions Abdomen/Pelvis CT 04/06/24 13:00 IMPRESSION: Interval development of small bowel dilatation in the mid to lower abdomen with transition point in the pelvis corresponding to region of previously identified thick-walled small bowel seen on 10/11/2023. Consider possibility of a fibrous stricture associated partial small bowel obstruction. There is no evidence of engorgement of vasa recta or bowel wall edema in this particular area of transition in the pelvis. However, further proximally, there are segments of small bowel that have mild circumferential wall thickening and there is mild haziness and slight prominence of vasa recta which could reflect mild flare of inflammatory bowel disease. No enteroenteric fistula, sinus tract or abscess. Short CBC 04/06/24 Range/Units 12:13 WBC 8.6 (4.8-10.8) X10*3/uL Hgb 13.0 (12.0-16.0) g/dl Hct 39.2 (37.0-47.0) % Plt Count 373 (160-400) X10*3/uL BMP 04/06/24 12:13 Sodium 138 Potassium 3.4 Chloride 104 Carbon Dioxide 24 BUN 11 Creatinine 0.77 Calcium 8.6 Liver Function 04/06/24 Range/Units 12:13 Total Bilirubin 0.7 (0.0-1.0) mg/dL Direct Bilirubin 0.2 (0.0-0.5) mg/dL AST 14 (5-31) U/L ALT 15 (0-31) U/L Alkaline Phosphatase 67 (39-117) U/L Albumin 3.5 (3.5-5.0) g/dL Urine 04/06/24 Range/Units 17:25 Urine Color Dark Yellow Urine Appearance Clear Urine pH 6.0 (5.0-9.0) Ur Specific [place] >= 1.030 H (1.005-1.025) Urine Protein 30 (1+) H (Neg-Trace) mg/dL Urine Glucose (UA) Negative (Negative) mg/dL Abdomen CT scan report/results: report reviewed and image reviewed CT scan - pelvis: report reviewed and image reviewed Assessment and Plan (1) Partial bowel obstruction: Status: Acute She has had multiple episodes of vomiting overnight. She feels much better now. However, her CT scan does show some dilatation of the small bowel loops with a transition zone distally. There is no obvious inflammatory changes in this area. This may represent a Crohn's stricture. She has had no vomiting for the past 3-4 hours. We will admit her and keep her on IV fluids and on bowel rest. I told her that if she continues to have vomiting overnight, she may benefit from an NG tube. Her exam is otherwise benign She is on multiple medications including for hypertension so I will consult the hospitalist service. She had a CAT scan done in the ER in September, which also showed some narrowing in the same segment. (2) Crohn disease: Status: Acute She is on Entyvio for her Crohn's disease. Review of her CT scan suggest a stricture in the distal bowel along with mild inflammatory changes in more proximal segments consistent with a Crohn's disease I will consult Dr. Barnhart who has been following her. Quality Stroke Does the patient have a stroke diagnosis?: No VTE Prior VTE?: No VTE Risk Level:: Medical - low VTE Device Contraindication: Treatment Not Indicated VTE Drug Contraindication: Treatment Not Indicated Procedures Date of Service Date of Service: 04/08/24
--- NOTE | 2024-04-06 18:43 | HO.PM.IMCN ---
History of Present Illness Data of Consult Primary Care Provider: Arlyn Leyva MD [facility] Medical History (Updated 04/06/24 @ 17:44 by ILDEFONSO Cook) Left genital labial abscess GERD (gastroesophageal reflux disease) Anxiety and depression HTN (hypertension) Iron deficiency anemia Asthma Crohn disease Family History Father Stroke Heart disease Diabetes HTN (hypertension) Surgical History History of incision and drainage (09/14/22) H/O colonoscopy History of esophagogastroduodenoscopy (EGD) History of bowel resection Hx of cholecystectomy History of repair of ACL Social History Household Members: None [facility] Alcohol intake: current Alcohol intake frequency: a few times a month Alcohol type: beer Patient Tobacco Use Status: Never used Tobacco Smoked in Last 30 Days: No Second Hand Smoke Exposure: No Use of substances other than those prescribed or required for medical reasons: No Advance Directives: Yes Advance Directives Information Provided: No Advance Directives on File: No Patient : No service: No Current occupational status: employed Gender identity: Female Meds Allergies Allergy/AdvReac Type Severity Reaction Status Date / Time dextran sulfate Allergy Severe Anaphylaxis Verified 04/06/24 11:41 (from iron dextran) iron [Iron] Allergy Severe DIFFICULTY Verified 04/06/24 11:41 BREATHING, vomiting zinc Allergy Severe Nausea and Verified 04/06/24 11:41 Vomiting Active Medications: Current Medications Acetaminophen (Acetaminophen 325 Mg Tablet) 650 mg PO Q6H PRN PRN Reason: Pain, Mild (Pain Scale 1-3), fever or headache Calcium Carbonate (Calcium Carbonate 750 Mg Tab.Chew) 750 mg PO Q4H PRN PRN Reason: Heartburn Lactated Ringer's (Lr) 1,000 mls @ 100 mls/hr IVCONT .Q10H HARJINDER Magnesium Hydroxide (Milk Of Magnesia 30 Ml Oral.Susp) 30 ml PO DAILY PRN PRN Reason: Constipation Melatonin (Melatonin 3 Mg Tablet) 6 mg PO BEDTIME PRN PRN Reason: Insomnia Morphine Sulfate (Morphine Sulfate 2 Mg/Ml Cartridge) 2 mg IVPUSH Q3H PRN; Protocol PRN Reason: pain, severe Ondansetron HCl (Ondansetron Hcl 4 Mg/2 Ml Vial) 4 mg IVPUSH Q8H PRN PRN Reason: nausea Propranolol HCl (Propranolol Hcl 20 Mg Tablet) 20 mg PO TID HARJINDER; Protocol Sodium Chloride (0.9 % Sodium Chloride Flush 3 Ml Syringe) [facility] Home Medications ?Medication ?Instructions ?Recorded ?Confirmed ?Last Taken ?Type bupropion HCl 150 mg tablet,12 hr 1 tab PO BID 06/03/20 08/08/23 09/14/22 History sustained-release enalapril maleate 10 mg tablet 1 tab PO BID 06/03/20 08/08/23 05/23/22 History omeprazole 20 mg tablet,delayed 20 mg PO BID 03/01/21 08/08/23 05/23/22 History release vedolizumab 300 mg intravenous 300 mg IV Q4W 03/01/21 08/08/23 05/15/22 History solution (Entyvio) budesonide 3 mg 3 cap PO DAILY 05/02/22 08/08/23 05/22/22 History capsule,delayed,extended release albuterol sulfate 90 mcg/actuation 2 puff inhalation Q4H PRN Wheezing 05/23/22 08/08/23 04/04/22 History aerosol inhaler mesalamine 250 mg capsule,extended 1,000 mg PO BID 07/10/22 08/08/23 Unknown History release (Pentasa) prednisone 10 mg tablet 5 mg PO DAILY 07/23/22 08/08/23 09/14/22 History Pentasa PO 8XD 12/12/22 08/08/23 Unknown History cyanocobalamin (vitamin B-12) 1,000 mcg subcut QMONTH 06/14/23 08/08/23 Unknown History 1,000 mcg/mL injection kit ondansetron 4 mg disintegrating 4 mg PO Q6H PRN nausea 04/06/24 04/06/24 Unknown History tablet propranolol 20 mg tablet 20 mg PO TID 04/06/24 Unknown History ustekinumab 90 mg/mL subcutaneous mg subcut 04/06/24 Unknown History syringe (Stelara) Physical Exam Vital Signs and Narrative: Vital Signs: Last Vital Signs Temp 98.4 F 04/06/24 16:55 Pulse 111 H 04/06/24 16:55 Resp 16 04/06/24 17:38 BP 141/86 H 04/06/24 16:55 Pulse Ox 97 04/06/24 16:55 O2 Del Method Room Air 04/06/24 16:55 BMI result Body Mass Index 27.4 Results Labs 04/06/24 12:13 04/06/24 12:13 Labs: Laboratory Results - last 24 hr 04/06/24 04/06/24 12:13 17:25 MCV 91.2 MCH 30.2 MCHC 33.2 RDW 12.7 Plt Count 373 MPV 8.8 L Immature Gran % (Auto) 0.4 Neut % (Auto) 75.9 H Lymph % (Auto) 8.5 L [place] % (Auto) 13.9 H Eos % (Auto) 0.8 Baso % (Auto) 0.5 Lymph # (Auto) 0.7 L [place] # (Auto) 1.2 Eos # (Auto) 0.1 Baso # (Auto) 0.0 Abs Immat Gran (auto) 0.03 Absolute Neuts (auto) 6.5 Absolute Nucleated RBC 0.000 Nucleated RBC % (auto) 0.0 Anion Gap 13 Estim Creat Clear Calc 86.0 Estimated GFR > 60 Random Glucose 102 Calcium 8.6 Magnesium 1.9 Total Bilirubin 0.7 Direct Bilirubin 0.2 AST 14 ALT 15 Alkaline Phosphatase 67 Total Protein 6.3 L Albumin 3.5 Lipase 22 Beta HCG, Quant < 2 Urine Color Dark Yellow Urine Appearance Clear Urine pH 6.0 Ur Specific [place] >= 1.030 H Urine Protein 30 (1+) H Urine Glucose (UA) Negative Urine Ketones 80 Urine Blood Negative Urine Nitrite Negative Ur Leukocyte Esterase Small (1+) H Urine RBC 0-2 Urine WBC 0-5 Ur Squamous Epith Cells 6-10 Urine Bacteria Trace Hyaline Casts 3-5 Imaging Radiologist's Impressions: Impressions Abdomen/Pelvis CT 04/06/24 13:00 IMPRESSION: Interval development of small bowel dilatation in the mid to lower abdomen with transition point in the pelvis corresponding to region of previously identified thick-walled small bowel seen on 10/11/2023. Consider possibility of a fibrous stricture associated partial small bowel obstruction. There is no evidence of engorgement of vasa recta or bowel wall edema in this particular area of transition in the pelvis. However, further proximally, there are segments of small bowel that have mild circumferential wall thickening and there is mild haziness and slight prominence of vasa recta which could reflect mild flare of inflammatory bowel disease. No enteroenteric fistula, sinus tract or abscess.
[2024-04-06] MEDS: Hydrocortisone Sod Succ/PF 100 MG VIAL IVPUSH (19:30)
[2024-04-06] MEDS: Pantoprazole Sodium 40 MG/10 ML VIAL IVPUSH (19:30)
[2024-04-06] MEDS: Lactated Ringers 1,000 ML 100 ML IVCONT (19:31)
[2024-04-06 19:34] VITALS: BP 133/87; PULSE 103; RESP 17; TEMP 36.4; O2SAT 96
--- NOTE | 2024-04-06 19:35 | PM.EVENT ---
Event Note Date of Service: 04/06/24 Event Note: GI Consult-Full note dictated Imp: Crohn's disease with SBO due to probable flare of the Crohn's with underlying SB strictures. Presently appears comfortable. Abdomen is nondistended, but BS are diminished and she does have some diffuse tenderness. Rec: Trial of IV Hydrocortisone to hopefully relieve this acute flare and the SBO with return of bowel function. IV PPI. Hold outpatient meds for the time being. We discussed potential need for surgery but I hope that things will improve so as to allow discharge and then possible evaluation at a Crohn's center re: other medical and surgical treatment options. She is comfortable with this plan. Thanks Time Spent With Patient Time: Total time managing care of this patient today ____ minutes.
[2024-04-06 19:36] LABS: C Reactive Protein 5.75 mg/dL (< or = 0.50)
--- NOTE | 2024-04-06 19:51 | PHA.MEDREC ---
Pharmacy Consult ? Medication Reconciliation Pharmacy has completed the medication reconciliation. Confirmed medications with patient. Patient confirmed her Vitamin B-12 injection once a month and she states she got it March 06 and is due for it. She is also on a Stelara 90mg/ml injection every 4 weeks and she confirmed she got that 04/03/24.
[2024-04-06 20:53] LABS: Erythrocyte Sedimentation Rate 8 MM/HR (0-20)
[2024-04-06 21:07] VITALS: BP 133/87; PULSE 103
[2024-04-06] MEDS: Propranolol HCL 20 MG TABLET PO (21:07)
[2024-04-07] VITALS (7 sets, daily range): BP systolic 113–129; BP diastolic 61–78; PULSE 75–94; RESP 14–19; TEMP 36–36.6; O2SAT 80–98
[2024-04-07] MEDS: Morphine Sulfate 2 MG/ML CARTRIDGE IVPUSH (02:10)
[2024-04-07] MEDS: ondansetron HCL 4 MG/2 ML VIAL IVPUSH (02:10)
[2024-04-07] MEDS: Hydrocortisone Sod Succ/PF 100 MG VIAL IVPUSH ×3 (03:55→20:16)
[2024-04-07] MEDS: Lactated Ringers 1,000 ML 100 ML IVCONT ×3 (03:56→23:43)
[2024-04-07] MEDS: Pantoprazole Sodium 40 MG/10 ML VIAL IVPUSH ×2 (06:20→16:38)
--- NOTE | 2024-04-07 06:21 | CONS_ITS ---
DATE OF SERVICE: 04/06/2024 REASON FOR CONSULTATION: Known history of Crohn's disease, abdominal pain, and vomiting. HISTORY OF PRESENT ILLNESS: The patient is a 38-year-old female well known to me from previous office visits, including the most recent visit back in December. The patient has underlying history of Crohn's disease of the small bowel diagnosed in 2004. She has been on medications in the past including Imuran and prednisone, as well as the biologic agents of Humira, Entyvio, and most recently Stelara that was started in October 2023. The patient's Crohn disease has been complicated by perforation of the small bowel in August 2006. Her most recent colonoscopy in May 2022 revealed a very distal proctitis just above the dentate line, but otherwise appeared without any abnormality in the terminal ileum, proximal rectum, nor elsewhere in the colon. She did have a colonoscopy in 2015 that did describe active ileitis. She has been on periodic courses of prednisone, but most recently has only been on a standing dose of prednisone 5 mg daily and budesonide 9 mg daily. She had been on Entyvio since 2016 with an infusion every 4 weeks. However, due to a flare of her Crohn's disease while on the Entyvio, along with an elevated fecal calprotectin level of over 2400 while on the Entyvio, she was then switched to Stelara earlier this year to hopefully obtain better control of the Crohn's disease. She also remained on the low dose prednisone and 9 mg of budesonide. She did have a MRI with enterography in 2020 at [facility] that revealed 3 segments of moderate to severe small bowel thickening and hyperenhancement in the ileum with some small bowel dilatation, but without any obstruction, fistula, nor abscess. She has had some issues with a labial abscess, although this was not felt to be an actual fistula from the Crohn's disease. She was treated by Dr. Jensen with resolution. The patient reports that things have been getting somewhat uncomfortable for her over the last several weeks at least with some intermittent abdominal pain and distention. Just prior to her 2nd a subcutaneous injection of Stelara, her trough level came back at 1.0 which was subtherapeutic and she began a subcutaneous injection every 4 weeks with the 1st injection in that regard last week. However, she began having increasing abdominal pain with associated vomiting, which prompted her ER visit. Her imaging studies with CT scan revealed evidence of small bowel obstruction and she has been admitted. She had about 2 soft brown stools at home today. She did not notice any hematochezia nor melena. She has not been using any NSAIDs, tobacco, nor alcohol. MEDICATIONS: Medications at home included Stelara subcutaneous injections, budesonide 9 mg daily, prednisone 5 mg daily, Pentasa 1 g q.i.d., omeprazole 20 mg b.i.d., lisinopril, control pill, vitamin B12 shots monthly, Zofran p.r.n., dexamethasone swish and swallow p.r.n. for any mouth ulcers. PAST MEDICAL HISTORY: Crohn's disease as above. Mild asthma. Erosive esophagitis seen on endoscopy. Normal bone density study in 2022. Most recent colonoscopy in May 2022 revealed a very distal proctitis, but without any abnormality in the ileum nor proximal colon. Labial abscess with some drainage, but without any sign of fistula into the small bowel. PAST SURGICAL HISTORY: Surgeries aside from the laparotomy for the perforation of the small bowel in 2006 include surgery for torn ACL, laparoscopic cholecystectomy for acalculous cholecystitis, and labial cyst and abscess in August 2022. FAMILY HISTORY: Negative for inflammatory bowel disease, nor cancer. 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 She does not smoke. She does not use any significant amounts of alcohol. REVIEW OF SYSTEMS: CONSTITUTIONAL: She has been feeling somewhat poorly in relation to the abdominal pain. SKIN: No rash. No pruritus. CARDIAC: No chest pain. PULMONARY: No coughing or hemoptysis. GI: As above. GENITOURINARY: No dysuria or hematuria. NEUROLOGIC: No headache or seizures. PHYSICAL EXAMINATION: GENERAL: The patient is a pleasant alert female. SKIN: Warm and dry. NECK: Supple. CHEST: Clear. CARDIAC: Normal S1, S2. ABDOMEN: Soft and nondistended. However, bowel sounds are diminished and there is some mild to moderate diffuse tenderness. There is no palpable mass. EXTREMITIES: Without edema. LABORATORY DATA: White blood cell count 8.6, hemoglobin 13.0, platelets 372,000. Sedimentation rate of 8. Normal electrolytes. BUN 11, creatinine 0.8. Normal LFTs. C-reactive protein of 5.75 compared to 4.40 in mid February and 1.25 in September. Lipase 22. Serum test is negative. The CT scan of her abdomen and pelvis describes evidence of small bowel dilatation with transition point and thickening of the small bowel felt to be consistent with a stricture and at least a partial small-bowel obstruction. There are some more proximal segments of small bowel that did show some mild circumferential thickening of the bowel wall with some mild inflammatory changes of the mesentery. There is no intraabdominal abscess nor any sign of perforation. IMPRESSION: Given the patient's clinical history of her complicated Crohn's disease and halie's current evaluation it seems quite consistent with a small bowel obstruction in relation to a probable combination of a flare of the Crohn's disease in association with some chronic small-bowel strictures. I doubt this represents issues with adhesions given the abnormalities in the different portions of the small intestine. At this point, given her exam and clinical history, I do not think she needs a nasogastric tube for decompression at this time. Obviously, if she continues to have vomiting and becomes more distended, I would then recommend a nasogastric tube at that time. I would recommend a trial of IV hydrocortisone to see if that can help improve things by relieving some of the acute flare of Crohn's, hopefully improving the small bowel lumen, and allowing return of some bowel function. At this point, I would continue to keep her n.p.o. and we shall see what her followup abdominal x-ray looks like tomorrow. I would continue her PPI, but switch her to IV PPI while she is in the hospital. I do not think she needs to be on her outpatient medications such as low-dose prednisone, budesonide, or Pentasa at this time. We discussed the fairly high potential of need for surgery in regard to the small bowel Crohn's disease. Obviously, if the obstruction does not improve, then the surgery would need to be done sooner rather than later. However, if things improve on the steroids and she is able to be discharged, I would then plan to refer her to a [facility] in [place] for evaluation to see if they have any other thoughts about either medical therapy or surgical options. She had been seen by a tools developer at the [facility] in the past. This has all been discussed in detail with the patient. The patient is comfortable with this plan. Thank you for the consultation. MD NIC Khalil/CLAYTON / [phone] LAMBERTO
[2024-04-07] MEDS: Propranolol HCL 20 MG TABLET PO ×3 (07:43→20:17)
[2024-04-07] MEDS: Acetaminophen 325 MG TABLET 650 MG PO ×2 (07:43→14:21)
--- NOTE | 2024-04-07 07:59 | P.PNGS_ITS ---
Subjective Subjective Date of Service: 04/08/24 Interval history: Denies nausea or vomiting overnight Denies flatus Still has some pain but says this seems to be better Physical Exam 2 Vital Signs: Vital Signs: Last Vital Signs Temp 96.8 F 04/07/24 07:26 Pulse 75 04/07/24 07:26 Resp 14 04/07/24 07:26 BP 129/78 04/07/24 07:26 Pulse Ox 97 04/07/24 07:26 O2 Del Method Room Air 04/07/24 07:26 BMI result Body Mass Index 27.4 Const: General: comfortable and no acute distress Resp: Effort & Inspection: normal respiratory effort Cardio: Rate: regular rate GI: Other: Some tenderness diffusely Palpation (GI): Soft to palpation, not firm and no guarding Objective Data Active Medications Acetaminophen (Acetaminophen 325 Mg Tablet) 650 mg PO Q6H PRN PRN Reason: Pain, Mild (Pain Scale 1-3), fever or headache Last Admin: 04/07/24 07:43 Dose: 650 mg Documented By: LEXA Calcium Carbonate (Calcium Carbonate 750 Mg Tab.Chew) 750 mg PO Q4H PRN PRN Reason: Heartburn Hydrocortisone Sodium Succinate (Hydrocortisone Sod Succ/Pf 100 Mg Vial) 100 mg IVPUSH Q8H [facility] Last Admin: 04/07/24 03:55 Dose: 100 mg Documented By: ADALI Lactated Ringer's (Lr) 1,000 mls @ 100 mls/hr IVCONT .Q10H [facility] Last Admin: 04/07/24 03:56 Dose: 100 mls/hr Documented By: ADALI Magnesium Hydroxide (Milk Of Magnesia 30 Ml Oral.Susp) 30 ml PO DAILY PRN PRN Reason: Constipation Melatonin (Melatonin 3 Mg Tablet) 6 mg PO BEDTIME PRN PRN Reason: Insomnia Morphine Sulfate (Morphine Sulfate 2 Mg/Ml Cartridge) 2 mg IVPUSH Q3H PRN; Protocol PRN Reason: pain, severe Last Admin: 04/07/24 02:10 Dose: 2 mg Documented By: ADALI Ondansetron HCl (Ondansetron Hcl 4 Mg/2 Ml Vial) 4 mg IVPUSH Q8H PRN PRN Reason: nausea Last Admin: 04/07/24 02:10 Dose: 4 mg Documented By: ADALI Pantoprazole Sodium (Pantoprazole Sodium 40 Mg/10 Ml Vial) 40 mg IVPUSH BID@2729,2120 [facility] Last Admin: 04/07/24 06:20 Dose: 40 mg Documented By: CHILANGO Propranolol HCl (Propranolol Hcl 20 Mg Tablet) 20 mg PO TID [facility]; Protocol Last Admin: 04/07/24 07:43 Dose: 20 mg Documented By: LEXA Sodium Chloride (0.9 % Sodium Chloride Flush 3 Ml Syringe) 3 ml IVFLUSH QSHIFT [facility] Last Admin: 04/07/24 07:43 Dose: Not Given Documented By: LEXA Non-Admin Reason: IV Running Labs 04/08/24 05:26 04/08/24 05:26 Labs: Laboratory Results - last 24 hr 04/06/24 04/06/24 12:13 17:25 MCV 91.2 MCH 30.2 MCHC 33.2 RDW 12.7 Plt Count 373 MPV 8.8 L Immature Gran % (Auto) 0.4 Neut % (Auto) 75.9 H Lymph % (Auto) 8.5 L [place] % (Auto) 13.9 H Eos % (Auto) 0.8 Baso % (Auto) 0.5 Lymph # (Auto) 0.7 L [place] # (Auto) 1.2 Eos # (Auto) 0.1 Baso # (Auto) 0.0 Abs Immat Gran (auto) 0.03 Absolute Neuts (auto) 6.5 Absolute Nucleated RBC 0.000 Nucleated RBC % (auto) 0.0 ESR 8 Anion Gap 13 Estim Creat Clear Calc 86.0 Estimated GFR > 60 Random Glucose 102 Calcium 8.6 Magnesium 1.9 Total Bilirubin 0.7 Direct Bilirubin 0.2 AST 14 ALT 15 Alkaline Phosphatase 67 C-Reactive Protein 5.75 H Total Protein 6.3 L Albumin 3.5 Lipase 22 Beta HCG, Quant < 2 Urine Color Dark Yellow Urine Appearance Clear Urine pH 6.0 Ur Specific [place] >= 1.030 H Urine Protein 30 (1+) H Urine Glucose (UA) Negative Urine Ketones 80 Urine Blood Negative Urine Nitrite Negative Ur Leukocyte Esterase Small (1+) H Urine RBC 0-2 Urine WBC 0-5 Ur Squamous Epith Cells 6-10 Urine Bacteria Trace Hyaline Casts 3-5 Procedures Date of Service Date of Service: 04/08/24 Progress Note: A&P Assessment and plan (1) Partial bowel obstruction: Status: Acute Assessment and Plan: With Crohn's disease May be secondary to stricturing versus active disease Discussed with Dr. Barnhart of GI - he will evaluate, possibly start steroids IV Abdomen soft but with tenderness Looks better than yesterday KUB ordered Time Spent With Patient Time: Total time managing care of this patient today ____ minutes. Quality Stroke Does the patient have a stroke diagnosis?: No VTE Prior VTE?: No VTE Risk Level:: Medical - low VTE Device Contraindication: N/A - Device Ordered VTE Drug Contraindication: Treatment Not Indicated
--- NOTE | 2024-04-07 09:16 | P.CONHOSP_ITS ---
History of Present Illness Data of Consult Service Date: 04/07/24 Requesting physician: Redd Jensen Primary Care Provider: Arlyn Leyva MD [facility] Reason for consult: medical management 38-year-old female with history of Crohn's disease, hypertension, asthma, iron- deficiency anemia, and GERD admitted to general surgery for management of partial bowel obstruction with consult placed hospitalist service for medical management. Review of Systems 2 Review of Systems: General: No fevers, malaise, unintentional weight loss HEENT: No blurred vision, diplopia. No sore throat, nasal congestion, rhinorrhea, sinus pain, ear pain Cardiovascular: No chest pain, palpitations, or leg edema Respiratory: No shortness of breath, wheezing, cough GI: No abdominal pain, nausea, vomiting, diarrhea, constipation, melena, hematochezia : No dysuria, hematuria, increased urinary frequency, decreased urinary output MSK: No myalgia, back pain Neuro: No headaches, weakness, paresthesias Skin: No rashes or lesions [facility] Medical History Left genital labial abscess GERD (gastroesophageal reflux disease) Anxiety and depression HTN (hypertension) Iron deficiency anemia Asthma Crohn disease Family History Father Stroke Heart disease Diabetes HTN (hypertension) Surgical History History of incision and drainage (09/14/22) H/O colonoscopy History of esophagogastroduodenoscopy (EGD) History of bowel resection Hx of cholecystectomy History of repair of ACL Social History Household Members: None Housing: Condominium Do you presently have visiting nurse or other home services: No Alcohol intake: current Alcohol intake frequency: a few times a month Alcohol type: beer Patient Tobacco Use Status: Never used Tobacco Smoked in Last 30 Days: No Second Hand Smoke Exposure: No Use of substances other than those prescribed or required for medical reasons: No Have you been hit, kicked, punched, or otherwise hurt by someone within the past year? If so, by whom?: No Do you feel safe in your current relationship?: No Current Relationship Is there a partner from a previous relationship who is making you feel unsafe now?: No Are you made to feel afraid or neglected: No Advance Directives: Yes Advance Directives Information Provided: No Advance Directives on File: No Advance Directives Date on File: 04/07/24 Do you have a plan to hurt others: No Plan Recently lost weight without trying: No Eating poorly because of decreased appetite: No Nutrition Risks: No Nutritional Risk Patient : No : No Poor oral hygiene: No service: No Current occupational status: employed Gender identity: Female Meds Allergies Allergy/AdvReac Type Severity Reaction Status Date / Time dextran sulfate Allergy Severe Anaphylaxis Verified 04/06/24 11:41 (from iron dextran) iron [Iron] Allergy Severe DIFFICULTY Verified 04/06/24 11:41 BREATHING, vomiting zinc Allergy Severe Nausea and Verified 04/06/24 11:41 Vomiting Active Medications: Current Medications Acetaminophen (Acetaminophen 325 Mg Tablet) 650 mg PO Q6H PRN PRN Reason: Pain, Mild (Pain Scale 1-3), fever or headache Last Admin: 04/07/24 07:43 Dose: 650 mg Calcium Carbonate (Calcium Carbonate 750 Mg Tab.Chew) 750 mg PO Q4H PRN PRN Reason: Heartburn Hydrocortisone Sodium Succinate (Hydrocortisone Sod Succ/Pf 100 Mg Vial) 100 mg IVPUSH Q8H [facility] Last Admin: 04/07/24 03:55 Dose: 100 mg Lactated Ringer's (Lr) 1,000 mls @ 100 mls/hr IVCONT .Q10H [facility] Last Admin: 04/07/24 03:56 Dose: 100 mls/hr Magnesium Hydroxide (Milk Of Magnesia 30 Ml Oral.Susp) 30 ml PO DAILY PRN PRN Reason: Constipation Melatonin (Melatonin 3 Mg Tablet) 6 mg PO BEDTIME PRN PRN Reason: Insomnia Morphine Sulfate (Morphine Sulfate 2 Mg/Ml Cartridge) 2 mg IVPUSH Q3H PRN; Protocol PRN Reason: pain, severe Last Admin: 04/07/24 02:10 Dose: 2 mg Ondansetron HCl (Ondansetron Hcl 4 Mg/2 Ml Vial) 4 mg IVPUSH Q8H PRN PRN Reason: nausea Last Admin: 04/07/24 02:10 Dose: 4 mg Pantoprazole Sodium (Pantoprazole Sodium 40 Mg/10 Ml Vial) 40 mg IVPUSH BID@0630,1630 [facility] Last Admin: 04/07/24 06:20 Dose: 40 mg Propranolol HCl (Propranolol Hcl 20 Mg Tablet) 20 mg PO TID [facility]; Protocol Last Admin: 04/07/24 07:43 Dose: 20 mg Sodium Chloride (0.9 % Sodium Chloride Flush 3 Ml Syringe) 3 ml IVFLUSH QSHIFT [facility] Last Admin: 04/07/24 07:43 Dose: Not Given Home Medications ?Medication ?Instructions ?Recorded ?Confirmed ?Last Taken ?Type bupropion HCl 150 mg tablet,12 hr 1 tab PO BID 06/03/20 04/06/24 04/06/24 History sustained-release enalapril maleate 10 mg tablet 1 tab PO BID 06/03/20 04/06/24 04/06/24 History omeprazole 20 mg tablet,delayed 20 mg PO BID 03/01/21 04/06/24 04/06/24 History release budesonide 3 mg 3 cap PO DAILY 05/02/22 04/06/24 04/06/24 History capsule,delayed,extended release albuterol sulfate 90 mcg/actuation 2 puff inhalation Q4H PRN Wheezing 05/23/22 04/06/24 04/06/24 History aerosol inhaler Pentasa 500 mg PO 8XD 12/12/22 04/06/24 04/06/24 History cyanocobalamin (vitamin B-12) 1,000 mcg subcut QMONTH 06/14/23 04/06/24 03/06/24 History 1,000 mcg/mL injection kit biotin 500 mcg capsule 500 mcg PO BID 04/06/24 04/06/24 04/06/24 History calcium carbonate (Calcium 600) 600 mg PO DAILY 04/06/24 04/06/24 04/06/24 History cholecalciferol (vitamin D3) 25 25 mcg PO DAILY 04/06/24 04/06/24 04/06/24 History mcg (1,000 unit) tablet (Vitamin D3) prednisone 5 mg tablet 5 mg PO DAILY 04/06/24 04/06/24 04/06/24 History propranolol 20 mg tablet 20 mg PO TID 04/06/24 04/06/24 04/06/24 History ustekinumab 90 mg/mL subcutaneous 90 mg subcut Q4W 04/06/24 04/06/24 04/03/24 History syringe (Shweta) Physical Exam 2 Vital Signs and Narrative: Vital Signs: Last Vital Signs Temp 96.8 F 04/07/24 07:26 Pulse 75 04/07/24 07:26 Resp 14 04/07/24 07:26 BP 129/78 04/07/24 07:26 Pulse Ox 97 04/07/24 07:26 O2 Del Method Room Air 04/07/24 07:26 BMI result Body Mass Index 27.4 Constitutional - Awake and Alert, No apparent distress Eyes - PERRLA, EOMI Cardiovascular - S1S2, RRR, No edema Respiratory - Normal lung expansion, Normal respiratory effort, No respiratory distress, CTA bilaterally Gastrointestinal - NT / ND; +BS; No rebound or guarding Extremities - no calf tenderness bilaterally, no swelling Skin - Warm/Dry Neurological - Alert & oriented x3 Psychological - Appropriate affect Results Labs 04/06/24 12:13 04/06/24 12:13 Labs: Laboratory Results - last 24 hr 04/06/24 04/06/24 12:13 17:25 MCV 91.2 MCH 30.2 MCHC 33.2 RDW 12.7 Plt Count 373 MPV 8.8 L Immature Gran % (Auto) 0.4 Neut % (Auto) 75.9 H Lymph % (Auto) 8.5 L [place] % (Auto) 13.9 H Eos % (Auto) 0.8 Baso % (Auto) 0.5 Lymph # (Auto) 0.7 L [place] # (Auto) 1.2 Eos # (Auto) 0.1 Baso # (Auto) 0.0 Abs Immat Gran (auto) 0.03 Absolute Neuts (auto) 6.5 Absolute Nucleated RBC 0.000 Nucleated RBC % (auto) 0.0 ESR 8 Anion Gap 13 Estim Creat Clear Calc 86.0 Estimated GFR > 60 Random Glucose 102 Calcium 8.6 Magnesium 1.9 Total Bilirubin 0.7 Direct Bilirubin 0.2 AST 14 ALT 15 Alkaline Phosphatase 67 C-Reactive Protein 5.75 H Total Protein 6.3 L Albumin 3.5 Lipase 22 Beta HCG, Quant < 2 Urine Color Dark Yellow Urine Appearance Clear Urine pH 6.0 Ur Specific [place] >= 1.030 H Urine Protein 30 (1+) H Urine Glucose (UA) Negative Urine Ketones 80 Urine Blood Negative Urine Nitrite Negative Ur Leukocyte Esterase Small (1+) H Urine RBC 0-2 Urine WBC 0-5 Ur Squamous Epith Cells 6-10 Urine Bacteria Trace Hyaline Casts 3-5 Imaging Radiologist's Impressions: Impressions Abdomen/Pelvis CT 04/06/24 13:00 IMPRESSION: Interval development of small bowel dilatation in the mid to lower abdomen with transition point in the pelvis corresponding to region of previously identified thick-walled small bowel seen on 10/11/2023. Consider possibility of a fibrous stricture associated partial small bowel obstruction. There is no evidence of engorgement of vasa recta or bowel wall edema in this particular area of transition in the pelvis. However, further proximally, there are segments of small bowel that have mild circumferential wall thickening and there is mild haziness and slight prominence of vasa recta which could reflect mild flare of inflammatory bowel disease. No enteroenteric fistula, sinus tract or abscess. Assessment and Plan (1) Partial bowel obstruction: Status: Acute Plan 38-year-old female with history of Crohn's disease, hypertension, asthma, iron- deficiency anemia, and GERD admitted to general surgery for management of partial bowel obstruction with consult placed hospitalist service for medical management. #Partial SBO -plan per general surgery #HTN -blood pressures reasonably controlled -would continue holding enalapril for now, resume if patient becomes hypertensive. Continue propranolol # GERD -continue PPI # Crohn's disease with acute flare -plan per GI Thank you for allowing me to participate in this consult. Signing off at this time. Please do not hesitate to call for further questions or for any acute medical issues that should arise
[2024-04-07 10:02] LABS: Hematocrit 32.5 % (37.0-47.0); Hemoglobin 10.8 g/dl (12.0-16.0); Mean Corpuscular HGB Conc 33.2 g/dl (31.0-35.0); Mean Corpuscular Hemoglobin 30.7 pg (27.0-33.0); Mean Corpuscular Volume 92.3 fL (80.0-98.0); Mean Platelet Volume 8.9 fL (9.4-12.3); Platelet Count 324 X10*3/uL (160-400); Red Blood Count 3.52 X10*6/uL (4.20-5.50); Red Cell Distribution Width 12.3 % (11.0-16.0); White Blood Count 4.1 X10*3/uL (4.8-10.8)
[2024-04-07 10:28] LABS: Anion Gap 13 (12-20); Blood Urea Nitrogen 9 mg/dL (9-16); Calcium 7.9 mg/dL (8.4-10.2); Carbon Dioxide 24 mmol/L (22-29); Chloride 106 mmol/L (96-108); Creatinine Clr Calc Pharmacy 90.8; Estimated Glomerular Filt Rate > 60; Glucose Random 122 mg/dL (60-115); Potassium 4.1 mmol/L (3.3-5.1); Sodium 139 mmol/L (135-145)
--- NOTE | 2024-04-07 12:21 | MHC.CM.PN ---
Female 38 DX [place]. She states that she lives alone. She is independent with all functional mobility. A new HCP has been documented. DP home self care. Patient will arrange for a family member to provide transportation at discharge.
[2024-04-07] MEDS: buPROPion HCl XL 300 MG TAB.ER.24H PO (13:54)
--- NOTE | 2024-04-07 16:17 | PM.EVENT ---
Event Note Date of Service: 04/07/24 Event Note: Seen on afternoon rounds Says she is passing flatus Feels better this afternoon Much less pain Says she is more comfortable We will start on clear liquids Seen by Dr. Barnhart On hypertensive medications Looks well Abdomen soft and benign, less tender Time Spent With Patient Time: Total time managing care of this patient today ____ minutes.
--- NOTE | 2024-04-07 16:27 | PM.EVENT ---
Event Note Date of Service: 04/08/24 Time Spent With Patient Time: Total time managing care of this patient today ____ minutes.
[2024-04-07] MEDS: 0.9 % Sodium Chloride Flush 3 ML SYRINGE IVFLUSH ×2 (16:38→20:17)
--- NOTE | 2024-04-07 19:24 | PM.GIPN ---
Subjective Subjective Date of Service: 04/07/24 Interval History: Reports feeling better with less abdominal pain, no further N/V, and passing flatus. Has not had a BM. Denies any sx. Would like to eat, especially since her [birth year] is [birth year] Critical Care Time (minutes): 0 Physical Exam Vital Signs: Vital Signs: Last Vital Signs Temp 97.4 F 04/07/24 15:36 Pulse 84 04/07/24 15:36 Resp 19 04/07/24 15:36 BP 115/62 04/07/24 15:36 Pulse Ox 97 04/07/24 15:36 O2 Del Method Room Air 04/07/24 15:36 BMI result Body Mass Index 27.4 Const: General: cooperative, healthy appearing, comfortable, no acute distress, well developed, alert, awake and Physically active HEENT: Other: MMM Eyes: Other: Anicteric GI: Other: Nondistended, +BS improved from yesterday, mild upper abdominal tenderness but better than yesterday, no mass Objective Data Labs 04/07/24 09:54 04/07/24 09:54 Labs: Laboratory Results - last 24 hr 04/06/24 04/07/24 12:13 09:54 WBC 4.1 L RBC 3.52 L Hgb 10.8 L Hct 32.5 L MCV 92.3 MCH 30.7 MCHC 33.2 RDW 12.3 Plt Count 324 MPV 8.9 L Absolute Nucleated RBC 0.000 Nucleated RBC % (auto) 0.0 ESR 8 Sodium 139 Potassium 4.1 D Chloride 106 Carbon Dioxide 24 Anion Gap 13 BUN 9 Creatinine 0.73 Estim Creat Clear Calc 90.8 Estimated GFR > 60 Random Glucose 122 H Calcium 7.9 L D C-Reactive Protein 5.75 H Microbiology Microbiology Results: Microbiology 04/06/24 17:48 Urine clean catch - Clean Catch Midstream Urine Culture - Preliminary No growth to date. Procedures Date of Service Date of Service: 04/07/24 Progress Note: A&P Assessment and plan (1) Crohn disease: Status: Acute (2) Small bowel obstruction: Status: Acute Plan Imp: Overall clinically improved with symptomatic improvement of the Crohn's regarding the SBO and abdominal tenderness. Rec: Continue IV steroids for at least another 24 hours, agree with slow advancement of her diet to an eventual low residue diet, and F/U labs in AM. I advised patient that I will reach out to the GI MD at [facility] that she had seen in the past to try to expedite an outpatient evaluation in their IBD clinic to assess for further medical and/or surgical options for her difficult small bowel Crohn's disease. She will continue the Stelara SQ injections Q 4 weeks in the meantime(her last injection was just last week). D/W patient in detail and she is comfortable with this plan. Thanks Time Spent With Patient Time: Total time managing care of this patient today ____ minutes. Quality Stroke Does the patient have a stroke diagnosis?: No VTE Prior VTE?: No VTE Risk Level:: Medical - low VTE Device Contraindication: N/A - Device Ordered VTE Drug Contraindication: Treatment Not Indicated
[2024-04-08 02:02] VITALS: BP 119/58; PULSE 62; RESP 16; TEMP 36.2; O2SAT 96
[2024-04-08] MEDS: Hydrocortisone Sod Succ/PF 100 MG VIAL IVPUSH ×2 (03:24→11:06)
[2024-04-08 05:53] LABS: MANUAL DIFF FLAG NO
[2024-04-08] MEDS: Pantoprazole Sodium 40 MG/10 ML VIAL IVPUSH (05:55)
[2024-04-08] MEDS: 0.9 % Sodium Chloride Flush 3 ML SYRINGE IVFLUSH (05:55)
[2024-04-08 06:11] LABS: Basophils Percent Auto 0.3 % (0-2); Hematocrit 31.8 % (37.0-47.0); Hemoglobin 10.5 g/dl (12.0-16.0); Imm Gran Abs Auto 0.03 X10*3/uL (0.00-0.03); Imm Gran Pct Auto 0.5 % (0.0-0.4); Lymphocytes Absolute Auto 0.5 X10*3/uL (1.2-4.9); Lymphocytes Percent Auto 7.9 % (20-40); Mean Corpuscular Hemoglobin 30.3 pg (27.0-33.0); Mean Corpuscular Volume 91.6 fL (80.0-98.0); Mean Platelet Volume 9.2 fL (9.4-12.3); Monocytes Absolute Auto 0.3 X10*3/uL (0.1-1.2); Monocytes Percent Auto 5.8 % (2-11); Neutrophils Percent Auto 85.5 % (45-73); Platelet Count 343 X10*3/uL (160-400); Red Blood Count 3.47 X10*6/uL (4.20-5.50); Red Cell Distribution Width 12.3 % (11.0-16.0); White Blood Count 5.8 X10*3/uL (4.8-10.8)
[2024-04-08 06:19] LABS: Anion Gap 10 (12-20); Blood Urea Nitrogen 9 mg/dL (9-16); Calcium 7.9 mg/dL (8.4-10.2); Carbon Dioxide 25 mmol/L (22-29); Chloride 107 mmol/L (96-108); Creatinine Clr Calc Pharmacy 99.4; Estimated Glomerular Filt Rate > 60; Glucose Fasting 142 mg/dL (60-99); Potassium 3.7 mmol/L (3.3-5.1); Sodium 138 mmol/L (135-145)
[2024-04-08 07:33] VITALS: BP 148/86; PULSE 86; RESP 17; TEMP 37.2; O2SAT 98
[2024-04-08] MEDS: buPROPion HCl XL 300 MG TAB.ER.24H PO (07:58)
[2024-04-08] MEDS: Cholecalciferol (Vitamin D3) 25 MCG TABLET PO (07:58)
[2024-04-08] MEDS: Propranolol HCL 20 MG TABLET PO (07:58)
--- NOTE | 2024-04-08 08:22 | P.PNGS_ITS ---
Subjective Subjective Date of Service: 04/08/24 Interval history: States she had a good night Tolerating clear liquids well Denies nausea or vomiting Passing flatus Says pain is much improved Physical Exam 2 Vital Signs: Vital Signs: Last Vital Signs Temp 99.0 F 04/08/24 07:33 Pulse 86 04/08/24 07:33 Resp 17 04/08/24 07:33 BP 148/86 H 04/08/24 07:33 Pulse Ox 98 04/08/24 07:33 O2 Del Method Room Air 04/08/24 07:33 BMI result Body Mass Index 27.4 Const: Other: Looks well General: comfortable and no acute distress Resp: Effort & Inspection: normal respiratory effort Cardio: Rate: regular rate GI: Inspection: No distended Palpation (GI): Soft to palpation, not firm, nontender and no guarding Objective Data Active Medications Acetaminophen (Acetaminophen 325 Mg Tablet) 650 mg PO Q6H PRN PRN Reason: Pain, Mild (Pain Scale 1-3), fever or headache Last Admin: 04/07/24 14:21 Dose: 650 mg Documented By: CARA Albuterol Sulfate (Albuterol Sulfate 90 Mcg 8 Gm Inhaler) 2 puff INHALE Q4H PRN PRN Reason: Wheezing Bupropion HCl (Bupropion Hcl Xl 300 Mg Tab.Er.24h) 300 mg PO DAILY [facility] Last Admin: 04/08/24 07:58 Dose: 300 mg Documented By: NITA Calcium Carbonate (Calcium Carbonate 750 Mg Tab.Chew) 750 mg PO Q4H PRN PRN Reason: Heartburn Cyanocobalamin (Cyanocobalamin (Vitamin B-12) 1,000 Mcg/Ml Vial) 1,000 mcg SUBCUT Q28D [facility] Last Admin: 04/07/24 13:50 Dose: Not Given Documented By: CLAUDE Non-Admin Reason: Patient Refused Hydrocortisone Sodium Succinate (Hydrocortisone Sod Succ/Pf 100 Mg Vial) 100 mg IVPUSH Q8H [facility] Last Admin: 04/08/24 03:24 Dose: 100 mg Documented By: CHILANGO Lactated Ringer's (Lr) 1,000 mls @ 100 mls/hr IVCONT .Q10H [facility] Last Admin: 04/07/24 23:43 Dose: 100 mls/hr Documented By: HO.LYSZ Magnesium Hydroxide (Milk Of Magnesia 30 Ml Oral.Susp) 30 ml PO DAILY PRN PRN Reason: Constipation Melatonin (Melatonin 3 Mg Tablet) 6 mg PO BEDTIME PRN PRN Reason: Insomnia Morphine Sulfate (Morphine Sulfate 2 Mg/Ml Cartridge) 2 mg IVPUSH Q3H PRN; Protocol PRN Reason: pain, severe Last Admin: 04/07/24 02:10 Dose: 2 mg Documented By: ADALI Pt Own (Norethin-E. Estradiol Triphasic [Nortrel (28)] 0.5/0.75/1 M 1 tab PO DAILY [facility] Last Admin: 04/08/24 07:58 Dose: 1 tab Documented By: NITA Ondansetron HCl (Ondansetron Hcl 4 Mg/2 Ml Vial) 4 mg IVPUSH Q8H PRN PRN Reason: nausea Last Admin: 04/07/24 02:10 Dose: 4 mg Documented By: ADALI Pantoprazole Sodium (Pantoprazole Sodium 40 Mg/10 Ml Vial) 40 mg IVPUSH BID@0630,1630 [facility] Last Admin: 04/08/24 05:55 Dose: 40 mg Documented By: CHILANGO Propranolol HCl (Propranolol Hcl 20 Mg Tablet) 20 mg PO TID [facility]; Protocol Last Admin: 04/08/24 07:58 Dose: 20 mg Documented By: NITA Sodium Chloride (0.9 % Sodium Chloride Flush 3 Ml Syringe) 3 ml IVFLUSH QSHIFT [facility] Last Admin: 04/08/24 05:55 Dose: 3 ml Documented By: CHILANGO Vitamin D (Cholecalciferol (Vitamin D3) 25 Mcg Tablet) 25 mcg PO DAILY [facility] Last Admin: 04/08/24 07:58 Dose: 25 mcg Documented By: NITA Labs 04/08/24 05:26 04/08/24 05:26 Labs: Laboratory Results - last 24 hr 04/07/24 04/08/24 09:54 05:26 MCV 92.3 91.6 MCH 30.7 30.3 MCHC 33.2 33.0 RDW 12.3 12.3 Plt Count 324 343 MPV 8.9 L 9.2 L Immature Gran % (Auto) 0.5 H Neut % (Auto) 85.5 H Lymph % (Auto) 7.9 L [place] % (Auto) 5.8 Eos % (Auto) 0.0 Baso % (Auto) 0.3 Lymph # (Auto) 0.5 L [place] # (Auto) 0.3 Eos # (Auto) 0.0 Baso # (Auto) 0.0 Abs Immat Gran (auto) 0.03 Absolute Neuts (auto) 5.0 Absolute Nucleated RBC 0.000 0.000 Nucleated RBC % (auto) 0.0 0.0 Anion Gap 13 10 L Estim Creat Clear Calc 90.8 99.4 Estimated GFR > 60 > 60 Random Glucose 122 H Fasting Glucose 142 H Calcium 7.9 L D 7.9 L Microbiology Microbiology Results: Microbiology 04/06/24 17:48 Urine Culture - Preliminary Urine clean catch - Clean Catch Midstream No growth to date. Procedures Date of Service Date of Service: 04/08/24 Progress Note: A&P Assessment and plan (1) Small bowel obstruction: Status: Acute Assessment and Plan: Symptoms resolved Seen by GI - plan is to refer her to [facility] for further management of her Crohn's disease We will start on regular diet If she tolerates this, okay to DC home Meds per GI - she was instructed to discuss her meds with Dr. Barnhart She is comfortable with the plan Time Spent With Patient Time: Total time managing care of this patient today ____ minutes. Quality Stroke Does the patient have a stroke diagnosis?: No VTE Prior VTE?: No VTE Risk Level:: Medical - low VTE Device Contraindication: N/A - Device Ordered VTE Drug Contraindication: Treatment Not Indicated
--- NOTE | 2024-04-08 12:27 | PM.DS ---
DS: Providers Provider Date of Service: 04/08/24 Date of admission: 04/06/24 18:06 Date of discharge: 04/08/24 Primary care physician: Arlyn Leyva MD Attending physician on admission: Redd Jensen Consults: 04/06/24 18:08 Consult to Gastroenterology Routine Consulting Provider: Neel Barnhart Reason for consultation: Crohns ds Consult to Hospitalist Routine Comment: Consulting Provider: Hospitalist Reason For Exam: HTN, Crohns Attending physician on discharge: Redd Jensen DS: Diagnosis Discharge Diagnosis (1) Partial bowel obstruction: Status: Acute (2) Crohn disease: Status: Acute DS: Summary Hospital Course Hospital Course: HPI AT ADMISSION: Lisa East is a 38 year old female with Crohn's disease, here in the hospital because of nausea and abdominal pain. She says that this started sometime last night. She says she has had about 10 episodes of vomiting since last night. The last episode was about 3-4 hours ago. She does describe some pain on the right side of her abdomen but does state that this seems to be much better. She has had some loose stools today as well. She says that she is being transitioned to a different medication for control of her Crohn's disease. She is on Entyvio. She had a history of may have been small bowel resection including the right colon for Crohn's disease about [address] [facility]. She had a labial abscess and had had debrided last year and I did not see any obvious fistulous tract to the rectal area at that time. She had a colonoscopy 2 years ago showing proctitis. CT scan does show some dilatation of the small bowel loops with a transition zone distally without obvious inflammatory changes in this area, possibly representing a Crohn's stricture with mild inflammatory changes in more proximal segments. She had a CAT scan done in the ER in September, which also showed some narrowing in the same segment. HOSPITAL COURSE: She was admitted to the surgical service for further treatment of her likely PSBO. She was kept on IV fluids and on bowel rest. Hospitalist service was consulted for her medical comorbidities. Gastroenterology was consulted for her Crohns disease who felt the SBO was likely due to Crohns flare and she was started on IV hydrocortisone with plan for referral to a [facility] in [place] for evaluation to see if they have any other thoughts about either medical therapy or surgical options if this episode resolves. She had improvement in her symptoms and she began to pass flatus the following day. She was started on clear liquid diet. Her IV steroids were continued for another 24h and she was advanced to a solid diet. She was tolerating this without abd pain, nausea or vomiting. She felt ready for discharge. She was discharged to home on 04/08/24 in stable condition. She is to f/u with Dr. Barnhart in office. She is to resume her home medications. Status at Discharge Functional status at discharge: independent ambulation Time Attestation Discharge Coordination Time (in mins): 40 Quality: Safe Use of Opioids Does Pt have an Active Cancer Diagnosis on the Problem List?: No Quality: Stroke Does the patient have a stroke diagnosis?: No Physical Exam Vital Signs: Vital Signs: Last Vital Signs Temp 99.0 F 04/08/24 07:33 Pulse 86 04/08/24 07:33 Resp 17 04/08/24 07:33 BP 148/86 H 04/08/24 07:33 Pulse Ox 98 04/08/24 07:33 O2 Del Method Room Air 04/08/24 07:33 BMI result Body Mass Index 27.4 Const: General: comfortable, no acute distress and alert Orientation/consciousness: patient oriented x3 GI: Inspection: No distended Palpation (GI): Soft to palpation and nontender Neuro: General: patient oriented x3 Discharge Plan Discharge Anticipated Discharge Date/Time: 04/08/24 14:00 Patient Disposition: Home, Self-Care Discharge Diagnosis: small bolwe obstruction, Crohns disease Referrals: Arlyn Leyva MD [Primary Care Provider] - 1 Week Neel Barnhart MD [Physician] - 1 Week Discharge Medications: Continued omeprazole 20 mg Tablet,Delayed Release (Dr/Ec) 20 mg PO BID budesonide 3 mg capsule,delayed,extend.release 3 cap PO DAILY Pentasa 500 mg capsule 500 mg PO 8XD cyanocobalamin (vitamin B-12) 1,000 mcg/mL kit 1,000 mcg SUBCUT QMONTH bupropion HCl 150 mg tablet sustained-release 12 hr 1 tab PO BID enalapril maleate 10 mg tablet 1 tab PO BID albuterol sulfate 90 mcg/actuation HFA aerosol inhaler 2 puff inhalation Q4H PRN (Reason: Wheezing) propranolol 20 mg tablet 20 mg PO TID Stelara 90 mg/mL syringe 90 mg subcut Q4W prednisone 5 mg tablet 5 mg PO DAILY calcium carbonate [Calcium 600] 600 mg calcium (1,500 mg) Tablet 600 mg PO DAILY biotin 500 mcg Capsule 500 mcg PO BID cholecalciferol (vitamin D3) [Vitamin D3] 25 mcg (1,000 unit) Tablet 25 mcg PO DAILY Nortrel (28) 0.5/0.75/1 mg- 35 mcg tablet 1 tab PO ONCE Qty: 84 4RF Discharge Orders: Discharge Order (Routine); Ordered 04/08/24 Ordered By: Redd Jensen Diet: Advance to usual diet Activity on Discharge: As tolerated Stand Alone Forms: Patient Portal Discharge page Print Language: Citizen Of [place] Activity Restrictions/Additional Instructions: Call Dr. Barnhart for follow-up and adjustment of medications Care Plan Goals: Treatment of Crohn's disease Health Concerns: Crohn's disease Plan of Treatment: Follow-up with GI Assessment: Doing well Discharge Date/Time: 04/08/24 14:06
--- NOTE | 2024-04-08 12:59 | PM.EVENT ---
Event Note Date of Service: 04/08/24 Event Note: she say she continues to do well tolerating diet passing flatus denies signficant abdl pain dw Dr Barnhart re: meds, oral steroids ok to dc home instructions explained to pt Time Spent With Patient Time: Total time managing care of this patient today ____ minutes.
--- NOTE | 2024-04-08 13:07 | MHC.CM.PN ---
Patient is discharged to home self care. She has arranged for transportation home.
== END 2024-04-08 14:06 | disposition home or self-care (01) | DRG 387 ==
LOC: HO.ED 17:44 → HO.EDOVER 18:14 → HO.S3 04-07 03:35
PROVIDERS: Internal Medicine; Physician Assistant; Admitting Provider Surgery; Emergency Provider Internal Medicine; PCP Internal Medicine; Visit Provider Surgery
DX: K50.012 Crohn's disease of small intestine with intestinal obstruction (principal); K21.9 Gastro-esophageal reflux disease without esophagitis; I10 Essential (primary) hypertension; F39 Unspecified mood [affective] disorder; Z79.52 Long term (current) use of systemic steroids; Z79.69 Long term (current) use of other immunomodulators and immunosuppressants; Z79.899 Other long term (current) drug therapy
CPT/HCPCS: 36415; 74018; 74176; 80048; 80076; 81001; 83690; 83735; 84702; 85025; 85027; 85652; 86140; 87086; 99285; J1720; J2270; J2405; J2470; J3420; J7120

== ENCOUNTER → 2024-04-06 18:06 | Outpatient (BNV) | payer OTHER, SELFPAY | PROVIDERS: Admitting Provider Surgery; Emergency Provider Internal Medicine; PCP Internal Medicine; Visit Provider Physician Assistant | DX: I10 Essential (primary) hypertension (principal); K50.012 Crohn's disease of small intestine with intestinal obstruction | CPT/HCPCS: 99222 ==

== ENCOUNTER → 2024-04-06 18:06 | Outpatient (BNV) | payer OTHER, SELFPAY | PROVIDERS: Admitting Provider Surgery; Emergency Provider Internal Medicine; PCP Internal Medicine; Visit Provider Surgery | DX: K56.600 Partial intestinal obstruction, unspecified as to cause (principal); K50.90 Crohn's disease, unspecified, without complications | CPT/HCPCS: 99222; 99232; 99239; 99499 ==

== ENCOUNTER 2024-05-30 09:55 | Outpatient (REF) | payer OTHER, SELFPAY ==
[2024-05-30 10:15] LABS: MANUAL DIFF FLAG NO
[2024-05-30 11:01] LABS: Basophils Absolute Auto 0.1 X10*3/uL (0.0-0.2); Basophils Percent Auto 0.9 % (0-2); Eosinophils Absolute Auto 0.1 X10*3/uL (0.0-0.4); Eosinophils Percent Auto 0.8 % (0-4); Hematocrit 38.1 % (37.0-47.0); Hemoglobin 12.3 g/dl (12.0-16.0); Imm Gran Abs Auto 0.13 X10*3/uL (0.00-0.03); Lymphocytes Absolute Auto 0.7 X10*3/uL (1.2-4.9); Lymphocytes Percent Auto 5.6 % (20-40); Mean Corpuscular HGB Conc 32.3 g/dl (31.0-35.0); Mean Corpuscular Hemoglobin 29.8 pg (27.0-33.0); Mean Corpuscular Volume 92.3 fL (80.0-98.0); Mean Platelet Volume 9.2 fL (9.4-12.3); Monocytes Percent Auto 8.2 % (2-11); Neutrophils Absolute Auto 10.5 x10*3/uL (2.0-8.3); Neutrophils Percent Auto 83.5 % (45-73); Platelet Count 432 X10*3/uL (160-400); Red Blood Count 4.13 X10*6/uL (4.20-5.50); White Blood Count 12.6 X10*3/uL (4.8-10.8)
[2024-05-30 11:44] LABS: Alanine Aminotransferase 17 U/L (0-31); Albumin Level 3.5 g/dL (3.5-5.0); Alkaline Phosphatase 68 U/L (39-117); Aspartate Amino Transferase 15 U/L (5-31); Bilirubin Direct 0.1 mg/dL (0.0-0.5); Bilirubin Total 0.4 mg/dL (0.0-1.0); C Reactive Protein 1.95 mg/dL (< or = 0.50); Iron 90 mcg/dL (30-160); Percent Iron Saturation 27 % (15-50); Total Iron Binding Capacity 329 mcg/dL (228-428); Unsaturated Iron Binding 239 ug/dL
[2024-05-30 11:47] LABS: Erythrocyte Sedimentation Rate 9 MM/HR (0-20)
[2024-05-30 12:09] LABS: Ferritin 14 ng/mL (10-122)
[2024-05-30 12:12] LABS: Vitamin B12 383 pg/mL (200-900)
== END 2024-05-30 09:56 | disposition home or self-care (01) ==
LOC: HO.LAB 09:55
PROVIDERS: PCP Internal Medicine; Visit Provider Internal Medicine
DX: K50.812 Crohn's disease of both small and large intestine with intestinal obstruction (principal)
CPT/HCPCS: 36415; 80076; 80299; 82542; 82607; 82728; 83540; 85025; 85652; 86140

== ENCOUNTER 2024-07-13 14:16 | Outpatient (AMB) | payer OTHER, SELFPAY ==
--- NOTE | 2024-07-13 14:16 | A.OFFVIS_ITS ---
Vital Signs 07/13/24 14:22 Height 5 ft 1 in Weight 156 lb BMI 29.5 BP 130/70 Intake Visit Reasons: Annual Mgmt Specialist Required: No Mgmt Specialist Services: Mgmt Specialist Present Information Interpreted: clinical only Creative Services Producer: Creative Services Producer Present Allergies dextran sulfate Allergy (Severe, Verified 07/13/24 14:22) Anaphylaxis (from iron dextran) iron [Iron] Allergy (Severe, Verified 07/13/24 14:22) DIFFICULTY BREATHING, vomiting zinc Allergy (Severe, Verified 07/13/24 14:22) Nausea and Vomiting Medication List - Last Reconciled 07/13/24 by Anne-Marie Hoffmann CNM albuterol sulfate 90 mcg/actuation 2 puffs inhalation Q4H PRN biotin 500 mcg PO BID budesonide DR-ER 3 caps PO DAILY bupropion HCl SR 1 tab PO BID calcium carbonate (Calcium 600) 600 mg PO DAILY cholecalciferol (vitamin D3) (Vitamin D3) 25 mcg PO DAILY cyanocobalamin (vitamin B-12) 1,000 mcg subcut QMONTH enalapril maleate 1 tab PO BID norethin-e.estradiol triphasic 0.5/0.75/1 mg- 35 mcg (Nortrel (28)) 1 tab PO ONCE omeprazole 20 mg PO BID prednisone 5 mg PO DAILY propranolol 20 mg PO TID ustekinumab (Stelara) 90 mg subcut Q4W Is last menstrual period known: Yes Last menstrual period: 06/30/24 HPI HPI Annual: Details: Patient is here for ob/gyn physician annual exam and to refill her control pills. She was hospitalized somewhat recently for her Crohn's disease because she has a blockage. She has been referred to [place] and she has a colonoscopy and an MRI both next [place] and she and her boyfriend are going to drive out there and stay the night before at the hotel on campus of the hospital and proceed from there. She said they are looking at doing another section of her bowel to get rid of scar tissue from the 1st surgery she is hoping it could done laparoscopically because it is so much easier to heal from that in a laparotomy which she has had in the past as well. Her periods are light and regular, and they are the only thing that do not give her any problems. she would like to stay on control pills she has no interested in childbearing at all. At this point because they are working well for her she would rather not change anything. She just needs refill pills for her. She said after I saw her last year and she saw Dr. Greene for the labial cyst, she was seen again by Dr. Jensen and this time they just took out the entire cyst and it has healed well it has not given her any trouble it still does is a discharge every now and then but she was told to expect that that will always happen. [facility] Medical History Left genital labial abscess GERD (gastroesophageal reflux disease) Anxiety and depression HTN (hypertension) Iron deficiency anemia Asthma Crohn disease Surgical History History of incision and drainage (09/14/22) H/O colonoscopy History of esophagogastroduodenoscopy (EGD) History of bowel resection Hx of cholecystectomy History of repair of ACL Family History Father Stroke Heart disease Diabetes HTN (hypertension) Social History Household Members: None Housing: Condominium Do you presently have visiting nurse or other home services: No Alcohol intake: current Alcohol intake frequency: a few times a month Alcohol type: beer Patient Tobacco Use Status: Never used Tobacco Second Hand Smoke Exposure: No Advance Directives Date on File: 04/07/24 service: No Current occupational status: employed Gender identity: Female Female Reproductive History Menstrual Age of Menarche: 15 Date of last menstrual period: 06/30/24 control method: pills Total pregnancies: 0 Date of last pap smear: 07/10/22 (negative) History of abnormal pap smear: No Physical Exam Vital Signs: Last Vital Signs BP 130/70 07/13/24 14:22 BMI result Body Mass Index 29.5 Const General: healthy appearing, comfortable, no acute distress, well developed and alert Nutritional Appearance: average body habitus Orientation/consciousness: patient oriented x3 Limitations: no limitations HEENT Head: Yes normocephalic Neck Neck: Yes normal visual inspection Chest Chest palpation & inspection: normal inspection of the chest Breast/axilla inspection: normal inspection of the breasts and normal inspection of the axillae Breast/axilla palpation: normal palpation of the breasts and normal palpation of the axillae Resp Effort & Inspection: normal respiratory effort GI Inspection: Yes normal to inspection, No Abdominal wall edema and No distended Palpation (GI): Soft to palpation and nontender Other: External vulva within normal limits though there is scarring from surgery to vaginal cyst on right side. Vaginal tone is extremely extremely tight narrow Shivani speculum used bimanual exam be accomplished the single digit.. Vagina pink and moist cervix nulliparous moist healthy appearing skin mucus. Patient not for Pap and declines cultures. Uterus difficult to palpate not enlarged mobile nontender adnexa nontender. Very tight pelvic floor muscle tone. General: Yes bladder normal to palpation External Female Exam: normal external appearance and normal appearance of the urethra Speculum Exam - Vagina: normal appearance of the vagina, normal palpation and normal vaginal discharge Speculum Exam - Cervix: normal appearance of the cervix, normal palpation and nontender Bimanual exam- vagina & uterus: normal bimanual exam, normal palpation, uterine size normal, bladder normal to palpation, consistency normal, normal palpation, uterine mobility normal, uterine shape normal, No Cervical tenderness present, non-tender and no cervical motion tenderness Bimanual Exam- Adnexa, other: normal adnexae, no masses, normal and No adnexal tenderness Neuro General: patient oriented x3 Results Reviewed Results Reviewed: Name: Lisa East Age/Sex: 37/F Attending: Anne-Marie Hoffmann CNM : 1985 Submitted by: Anne-Marie Hoffmann CNM Copies to: MR #: [id number] Status: DEP REF Collected: 07/10/22 Location: [facility] Received: 07/10/22 Interpretation Satisfactory for evaluation. Negative for intraepithelial lesion or malignancy. HPV mRNA E6/E7: NOT DETECTED This assay detects E6/E7 viral messenger RNA (mRNA) from 14 high-risk HPV types (16, 18, 31, 33, 35, 39, 45, 51, 52, 56, 58, 59, 66, 68) HPV testing performed by [employer], [place], [place]. See reference laboratory portion of the EMR for entire report. Clinical Information LMP: 07/03/22 Previous PAP test: Unknown Material Received ThinPrep-Cervical Electronically Signed By: Tyra Rivas 07/27/22 [id number] The Pap Test is a screening procedure with the inherent possibility of both false negative and false positive results. Results should be interpreted in the context of historic and current clinical findings. Reli ability of the Pap Test is enhanced by performing the test on a regular repetitive basis. Patient: Lisa East Age/Sex: 37/F MR#: [id number] Page 1 of 1 Assessment & Plan Assessment & Plan (1) Well woman exam with routine gynecological exam: Code(s): Z01.419 - Encounter for gynecological examination (general) (routine) without abnormal findings Category: Medical (2) Surveillance for control, oral contraceptives: Code(s): Z30.41 - Encounter for surveillance of contraceptive pills Category: Medical (3) Bartholin cyst: Comment: Versus scar tissue previous I&D versus Bartholin's gland mass; currently not problematic 07/12/25, has had multiple surgeries and procedures. Code(s): N75.0 - Cyst of Bartholin's gland Category: Medical (4) Vulvar mass: Comment: History of Crohn's disease Code(s): N90.89 - Other specified noninflammatory disorders of vulva and perineum Category: Medical (5) Cervical cancer screening: Comment: 07/10/2022 Pap is negative with negative HPV.; states she has also had the HPV vaccine. Code(s): Z12.4 - Encounter for screening for malignant neoplasm of cervix Category: Medical Plan -----Discussed in this visit the following: healthy balanced diet, regular and consistent exercise, getting recommended health screens, doing the best she can for her particular health concerns, kegel exercises, pap smear screening and followup recommendations, mammography screening and SBE, normal changes in cycles in her life stage--- . Discussed her many challenges with the Crohn's and I wished her well with her upcoming test in week in [place] and potential surgery. She is doing well on the pills in has light non problematic periods, it is very good given that her chrohns contributes to so many other health problems Discussed that is anyone ever suggests that she needs to come off the control pills she could consider a Mirena IU S instead for now since pills are working well for her and she is not having any problems she would just as soon not change anything that is working for her. Medications: Refilled norethin-e.estradiol triphasic 0.5/0.75/1 mg- 35 mcg (Nortrel (28)) 1 tab PO ONCE 84 tabs 4RF Coding Level of Care Code Est Pt Prev Care 18-39y([id number]) Diagnoses Well woman exam with routine gynecological exam Z01.419 Surveillance for control, oral contraceptives Z30.41 Bartholin cyst N75.0 Vulvar mass N90.89 Cervical cancer screening Z12.4
[2024-07-13 14:22] VITALS: BP 130/70; BMI 29.5
== END 2024-07-13 15:34 | disposition home or self-care (01) ==
PROVIDERS: PCP Internal Medicine; Visit Provider Advanced Practice Midwife
DX: Z01.419 Encounter for gynecological examination (general) (routine) without abnormal findings (principal); Z30.41 Encounter for surveillance of contraceptive pills; N75.0 Cyst of Bartholin's gland; N90.89 Other specified noninflammatory disorders of vulva and perineum; Z12.4 Encounter for screening for malignant neoplasm of cervix
CPT/HCPCS: 99395

== ENCOUNTER → 2024-07-13 14:16 | Outpatient (BNVA) | payer OTHER, SELFPAY | PROVIDERS: PCP Internal Medicine; Visit Provider Advanced Practice Midwife ==

== ENCOUNTER 2024-11-03 09:37 | Outpatient (REF) | payer OTHER, SELFPAY ==
[2024-11-03 10:17] LABS: MANUAL DIFF FLAG NO
[2024-11-03 10:23] LABS: Basophils Absolute Auto 0.1 X10*3/uL (0.0-0.2); Basophils Percent Auto 0.6 % (0-2); Eosinophils Absolute Auto 0.1 X10*3/uL (0.0-0.4); Eosinophils Percent Auto 1.1 % (0-4); Hematocrit 35.3 % (37.0-47.0); Hemoglobin 11.3 g/dl (12.0-16.0); Imm Gran Abs Auto 0.03 X10*3/uL (0.00-0.03); Imm Gran Pct Auto 0.4 % (0.0-0.4); Lymphocytes Absolute Auto 0.7 X10*3/uL (1.2-4.9); Mean Corpuscular Hemoglobin 28.5 pg (27.0-33.0); Mean Corpuscular Volume 88.9 fL (80.0-98.0); Mean Platelet Volume 9.3 fL (9.4-12.3); Monocytes Absolute Auto 0.8 X10*3/uL (0.1-1.2); Monocytes Percent Auto 9.6 % (2-11); Neutrophils Absolute Auto 6.8 x10*3/uL (2.0-8.3); Neutrophils Percent Auto 80.3 % (45-73); Platelet Count 390 X10*3/uL (160-400); Red Blood Count 3.97 X10*6/uL (4.20-5.50); Red Cell Distribution Width 12.8 % (11.0-16.0); White Blood Count 8.5 X10*3/uL (4.8-10.8)
[2024-11-03 13:37] LABS: Alanine Aminotransferase 13 U/L (0-31); Albumin Level 3.4 g/dL (3.5-5.0); Alkaline Phosphatase 64 U/L (39-117); Anion Gap 9 (12-20); Aspartate Amino Transferase 15 U/L (5-31); Bilirubin Direct < 0.2 mg/dL (0.0-0.5); Bilirubin Total 0.2 mg/dL (0.0-1.0); Blood Urea Nitrogen 15 mg/dL (9-16); C Reactive Protein 2.65 mg/dL (< or = 0.50); Calcium 8.9 mg/dL (8.4-10.2); Carbon Dioxide 26 mmol/L (22-29); Chloride 108 mmol/L (96-108); Estimated Glomerular Filt Rate > 60; Glucose Random 100 mg/dL (60-115); Potassium 4.1 mmol/L (3.3-5.1); Sodium 139 mmol/L (135-145); Total Protein 6.5 g/dL (6.5-8.0)
== END 2024-11-03 09:38 | disposition home or self-care (01) ==
LOC: HO.10HDL 09:37
PROVIDERS: Visit Provider Internal Medicine
DX: K50.812 Crohn's disease of both small and large intestine with intestinal obstruction (principal)
CPT/HCPCS: 36415; 80048; 80076; 85025; 86140

== ENCOUNTER 2024-11-10 15:18 | Outpatient (REF) | payer OTHER, SELFPAY ==
[2024-11-16 16:19] LABS: Calprotectin, Fecal 1760 mcg/g
== END 2024-11-10 15:19 | disposition home or self-care (01) ==
LOC: HO.LNP 15:18
PROVIDERS: Visit Provider Internal Medicine
DX: K50.812 Crohn's disease of both small and large intestine with intestinal obstruction (principal)
CPT/HCPCS: 83993

== ENCOUNTER 2025-07-05 14:14 | Outpatient (REF) | payer OTHER, SELFPAY ==
[2025-07-05 14:34] LABS: MANUAL DIFF FLAG NO
[2025-07-05 15:03] LABS: Hematocrit 36.6 % (37.0-47.0); Hemoglobin 11.4 g/dl (12.0-16.0); Imm Gran Abs Auto 0.03 X10*3/uL (0.00-0.03); Imm Gran Pct Auto 0.3 % (0.0-0.4); Lymphocytes Absolute Auto 0.9 X10*3/uL (1.2-4.9); Mean Corpuscular HGB Conc 31.1 g/dl (31.0-35.0); Mean Corpuscular Hemoglobin 27.1 pg (27.0-33.0); Mean Corpuscular Volume 87.1 fL (80.0-98.0); NRBC Abs Auto 0.000 X10*3/uL (0.0-0.012); NRBC Pct Auto 0.0 /100WBC (0.0-0.2); Platelet Count 504 X10*3/uL (160-400); Red Blood Count 4.20 X10*6/uL (4.20-5.50); White Blood Count 8.9 X10*3/uL (4.8-10.8)
[2025-07-05 15:34] LABS: Alanine Aminotransferase 16 U/L (0-31); Albumin Level 3.7 g/dL (3.5-5.0); Alkaline Phosphatase 90 U/L (39-117); Anion Gap 9 (12-20); Aspartate Amino Transferase 25 U/L (5-31); Blood Urea Nitrogen 14 mg/dL (9-16); Calcium 8.6 mg/dL (8.4-10.2); Carbon Dioxide 27 mmol/L (22-29); Chloride 106 mmol/L (96-108); Estimated Glomerular Filt Rate > 60; Iron 36 mcg/dL (30-160); Percent Iron Saturation 11 % (15-50); Potassium 4.1 mmol/L (3.3-5.1); Sodium 138 mmol/L (135-145); Total Iron Binding Capacity 314 mcg/dL (228-428); Total Protein 6.6 g/dL (6.5-8.0); Unsaturated Iron Binding 278 ug/dL
[2025-07-05 15:50] LABS: Vitamin B12 211 pg/mL (200-900)
[2025-07-12 19:28] LABS: Calprotectin, Fecal 4210 mcg/g
== END 2025-07-05 14:15 | disposition home or self-care (01) ==
LOC: HO.LAB 14:14
PROVIDERS: PCP Internal Medicine; Visit Provider Internal Medicine
DX: K50.812 Crohn's disease of both small and large intestine with intestinal obstruction (principal)
CPT/HCPCS: 36415; 80048; 80076; 82306; 82607; 83540; 83993; 85025; 86140